=== PATIENT | male | born 1955 | race Caucasian/White ===

== ENCOUNTER → 2019-06-10 09:58 | Outpatient (CLI) | payer OTHER, SELFPAY ==
[2019-06-10 10:01] LABS: Bacteria 0 SEEN /hpf (None Seen); Mucous, Urine 0 SEEN /hpf (<or=2+); Red Blood Cells-Urine 0 SEEN /hpf (0-5); Squamous Epithelial Cells - UA 0 SEEN /hpf (0-5); White Blood Cells 0 SEEN /hpf (0-5)
[2019-06-10 12:29] LABS: Absolute Lymphocyte Count 3.94 X10^3/uL (0.83-4.51); Absolute Neutrophil Count 6.1 X10^3/uL (2.0-7.7); Basophil# 0.07 X10^3/uL; Basophil% 0.6 % (0-1); Eosinophil# 0.38 X10^3/uL; Eosinophils% 3.3 % (0-5); Hematocrit 42.6 % (40-54); Hemoglobin 14.3 g/dL (13.0-16.5); Lymphocyte # 3.94 X10^3/ul (4.0); Lymphocyte % 34.5 % (19-41); Mean Corp Hgb Conc 33.6 g/dL (32-36); Mean Corpuscular Hgb 31.4 pg (27.0-32.0); Mean Corpuscular Volume 93.4 fL (80-94); Mean Platelet Vol. 11.9 fl (6.2-12.0); Monocyte# 0.92 X10^3/uL; Monocyte% 8.1 % (0-10); NRBC Flagged by Analyzer 0 % (0-5); Neutrophil # 6.06 X10^3/uL (2.7-7.7); Neutrophil % 53.1 % (47-70); Platelet Count 225 K/mm3 (150-450); RBC Distribution Width CV 13.3 % (11.6-14.6); RBC Distribution Width SD 45.5 fl (35.1-43.9); Red Blood Count 4.56 M/mm3 (4.6-6.2); White Blood Count 11.4 K/mm3 (4.4-11.0)
[2019-06-10 12:39] LABS: Color, Urine Yellow (Yellow); Glucose, Dipstick Normal (Normal); Ketone-Dipstick Negative (Negative); Leukocyte Esterase-Dipstick Negative /ul (Negative); Nitrite-Dipstick Negative (Negative); Occult Blood-Urine Negative /ul (Negative); Protein-Dipstick Negative (Negative); Specific Gravity, Urine 1.005 (1.002-1.030); Urine Bilirubin Dipstick Negative (Negative); Urine Clarity Clear (Clear); Urine Urobilinogen Normal (Normal)
[2019-06-10 13:01] LABS: ALB/GLOB Ratio 0.9 RATIO (0.9-2.4); AST(SGOT) 18 U/L (15-37); Alanine Aminotransfer ALT/SGPT 23 U/L (16-61); Albumin, Serum 3.6 g/dL (3.2-5.0); Alkaline Phosphatase 95 U/L (45-117); Anion Gap 4 (5-15); BUN 14 mg/dL (7-18); BUN/Creat Ratio 13.9 RATIO (10-20); Calcium,Total 8.4 mg/dL (8.5-10.1); Chloride 106 mmol/L (98-107); Cholesterol 113 mg/dL (200); Creatinine, Serum 1.01 mg/dL (0.70-1.30); EST Glomerular Filtration Rate 79 mL/min (>60); Est Glom Filt Rate - Afr Amer 96 mL/min (>60); Globulin 3.9 g/dL (2.2-4.2); Glucose 78 mg/dL (74-106); High Density Lipoprotein 37 mg/dL; Potassium 4.1 mmol/L (3.5-5.1); Protein, Total 7.5 g/dL (6.4-8.2); Sodium Level 139 mmol/L (136-145); Thyroid Stim Hormone (TSH) 1.76 uIU/mL (0.358-3.74); Triglycerides 90 mg/dL; Very Low Density Lipoprotein 18 mg/dL (5-40)
== END ==
LOC: MFPLAB 09:59
PROVIDERS: Family Provider Family Medicine; PCP Family Medicine; Referring Provider Family Medicine; Visit Provider Family Medicine
DX: I10 Essential (primary) hypertension (principal); E78.5 Hyperlipidemia, unspecified
CPT/HCPCS: 36415; 80053; 80061; 81001; 84443; 85025

== ENCOUNTER → 2019-12-14 14:42 | Outpatient (CLI) | payer MEDICARE, SELFPAY ==
[2019-12-14 18:02] LABS: Absolute Lymphocyte Count 3.49 X10^3/uL (0.83-4.51); Absolute Neutrophil Count 5.9 X10^3/uL (2.0-7.7); Basophil# 0.05 X10^3/uL; Basophil% 0.5 % (0-1); Eosinophil# 0.27 X10^3/uL; Eosinophils% 2.6 % (0-5); Hematocrit 39.4 % (40-54); Hemoglobin 12.9 g/dL (13.0-16.5); Lymphocyte # 3.49 X10^3/ul (4.0); Mean Corp Hgb Conc 32.7 g/dL (32-36); Mean Corpuscular Hgb 31.1 pg (27.0-32.0); Mean Corpuscular Volume 94.9 fL (80-94); Mean Platelet Vol. 12.5 fl (6.2-12.0); Monocyte# 0.83 X10^3/uL; Monocyte% 7.9 % (0-10); NRBC Flagged by Analyzer 0 % (0-5); Neutrophil # 5.92 X10^3/uL (2.7-7.7); Neutrophil % 55.9 % (47-70); Platelet Count 201 K/mm3 (150-450); RBC Distribution Width CV 14.9 % (11.6-14.6); RBC Distribution Width SD 51.8 fl (35.1-43.9); Red Blood Count 4.15 M/mm3 (4.6-6.2); White Blood Count 10.6 K/mm3 (4.4-11.0)
[2019-12-14 18:40] LABS: ALB/GLOB Ratio 0.8 RATIO (0.9-2.4); AST(SGOT) 16 U/L (15-37); Alanine Aminotransfer ALT/SGPT 17 U/L (16-61); Albumin, Serum 3.3 g/dL (3.2-5.0); Alkaline Phosphatase 88 U/L (45-117); Anion Gap 6 (5-15); BUN 9 mg/dL (7-18); BUN/Creat Ratio 8.3 RATIO (10-20); Calcium,Total 8.9 mg/dL (8.5-10.1); Chloride 106 mmol/L (98-107); Cholesterol 107 mg/dL (200); Creatinine, Serum 1.09 mg/dL (0.70-1.30); EST Glomerular Filtration Rate 72 mL/min (>60); Est Glom Filt Rate - Afr Amer 88 mL/min (>60); Globulin 3.9 g/dL (2.2-4.2); Glucose 97 mg/dL (74-106); High Density Lipoprotein 36 mg/dL; PSA,Total - Annual Screen 1.87 ng/mL (0.00-4.00); Potassium 3.9 mmol/L (3.5-5.1); Protein, Total 7.2 g/dL (6.4-8.2); Sodium Level 140 mmol/L (136-145); Triglycerides 139 mg/dL; Very Low Density Lipoprotein 28 mg/dL (5-40)
== END ==
PROVIDERS: PCP Family Medicine; Referring Provider Family Medicine; Visit Provider Family Medicine
DX: E55.9 Vitamin D deficiency, unspecified (principal); E78.5 Hyperlipidemia, unspecified; I10 Essential (primary) hypertension; Z12.5 Encounter for screening for malignant neoplasm of prostate
CPT/HCPCS: 36415; 80053; 80061; 82306; 84153; 85025; G0103

== ENCOUNTER 2020-02-04 06:51 | Day surgery (SDC) | payer MEDICARE, SELFPAY ==
[2020-01-12 11:22] VITALS: BMI 25.4
[2020-02-04] VITALS (7 sets, daily range): BP systolic 96–117; BP diastolic 59–68; PULSE 60–76; RESP 16; TEMP 36.1–36.6; O2SAT 97–98; BMI 24.4
--- NOTE | 2020-02-04 07:02 | PCM.HP.BLA ---
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 Is patient in pain?: No Allergies No Known Allergies Allergy (Verified 12/28/19 09:44) Medications Aspirin 325 mg PO DAILY@0800 08/23/14 [History Confirmed 12/28/19] Nitroglycerin (INPATIENT USE) [Nitrostat] 0.4 mg SUBLINGUAL Q5M PRN 08/23/14 [History Confirmed 12/28/19] atorvastatin 80 mg tablet 80 mg PO QHS #90 tab 05/25/19 [Rx Confirmed 12/28/19] carvedilol 25 mg tablet 25 mg PO BID #180 tab 05/25/19 [Rx Confirmed 12/28/19] clopidogrel 75 mg tablet 75 mg PO DAILY #90 tab 05/25/19 [Rx Confirmed 12/28/19] lisinopril 10 mg tablet 10 mg PO DAILY #90 tab 05/25/19 [Rx Confirmed 12/28/19] PFSH Medical History Heart disease (Acute) previous heart attack (Acute) Hypertension (Chronic) Surgical History (Updated 12/28/19 @ 14:[address] Jordin Kidd MD) History of coronary artery stent placement (Acute) history cardiac stent placement (Acute) history insertion pacemaker (Acute) Family History (Updated 12/28/19 @ 09:52 by Leigha Zeng) Father Heart disease Social History (Updated 12/28/19 @ 14:[address] Jordin Kidd MD) Smoking Status: Current every day smoker HPI HPI HPI: CARA FONTENOT, is a 64 M who presents to the office today for surgical consultation regarding personal history of colon polyps and the need for colonoscopy. The patient is referred by Dr Dylan Cardoza a written copy of my surgical consult recommendations will return to him. This is a 64-year-old gentleman. He has a history on August 23, 2014 of a colonoscopy with polypectomy per Dr. Reji Major. This was performed through the [facility]. Guaiac positive stools were noted at that time. A 1 cm polyp and a large 3.5 cm polyp on a long stalk were both removed at 20 cm. Recommendations at that time were for follow-up flexible sigmoidoscopy at 6 months. The polyp at 20 cm was felt to be a tubulovillous adenoma. There was no discussion of atypia. The patient denies abdominal pain or bright red blood per rectum or melena. He did also have an upper endoscopy at that time showing some mild gastritis. He denies any current abdominal pain. He is retired. Denies chest pain or shortness of breath. No fever chills or sweats. He claims that he was unaware of the need for the flexible sigmoidoscopy. As of December 14, 2019 white blood cell count was 10.6 with a hemoglobin 12.9 medical 39.4 platelet count 201,000. BUN is 9 creatinine 1.09. He does have a left chest pacemaker in place. His machine engraver is Dr. Archie Avila but again the patient is not consistent with follow-up. He does not remember when he had the pacemaker check last. He has had a previous myocardial infarction approximately 10 years ago. He has indwelling coronary stents. He claims there is no family history of colon cancer. HPI HPI HPI: CARA FONTENOT, is a 64 M who presents to the office today for ROS General General: No weight change, appetite, fatigue, colon cancer, breast cancer or weakness HEENT HEENT: No difficulty swallowing, eye injury, eye surgery, swollen glands or hoarseness Endo Endocrine: No thyroid disease, diabetes mellitus, thyroid cancer, Hair loss, heat intolerance or cold intolerance Skin Skin: No rash or changing moles Breast Breast: No left breast lump, right breast lump, nipple discharge, breast pain, abnormal mammogram, abnormal US or breast enlargement Musc Musculoskeletal: No back problems, arthritis, rheumatoid arthritis, gout or joint pain Cardio Cardiovascular: Yes pacemaker, heart disease, heart attack and heart stent; no murmur, atrial fibrillation, high blood pressure, palpitations, shortness of breat with exertion or chest pain Psych Psychiatric: No depression, anxiety or hearing voices Resp Respiratory: No shortness of breath, No sleep apnea, No cough, No COPD, No asthma, No emphysema, No wheezing Gastro Gastrointestinal: No abdominal pain, No nausea or vomiting, No diarrhea, No constipation, No blood in stool, No acid reflux, No hemorrhoids, No ulcers, No gallbladder problem, No black,tarry stools Sandro Hematologic: Yes blood thinners, No blood disorders, No bleeding, No anemia, No blood clots Neuro Neurologic: No system reviewed and no additional complaints, except as docu, No as per HPI, No abnormal walking, No abnormal hearing, No abnormal movements, No abnormal speech, No behavioral changes, No burning sensations, No confusion, No seizure-like activity, No unsteadiness, No dizziness, No localized weakness, No frequent falls, No headache(s), No lack of coordination, No loss of vision, No memory loss, No numbness, No other visual disturbances, No radiating pain, No restless legs, No sensory deficit, No fainting, No tingling, No tremor(s), No weakness, No other Exam Const General: cooperative, comfortable, no acute distress Nutritional Appearance: average body habitus HENMT Head: normal to inspection Chest Breast Palpation: No nipple discharge Other: Left anterior chest subcutaneous pacemaker in place Resp Effort & Inspection: normal respiratory effort Auscultation: clear to auscultation bilaterally Cardio Heart Sounds: no murmurs GI Palpation: soft, no hepatosplenomegaly Auscultation: normal bowel sounds Neuro General: alert, awake, oriented x3 Extrem General: no calf tenderness Psych Affect: normal affect Assessment & Plan Problems 1. Personal history of colonic polyps Z86.010 2. History of myocardial infarction I25.2 3. History of coronary artery stent placement Z95.5 4. Pacemaker Z95.0 Plan I recommended the patient a colonoscopy with biopsy or polypectomy as indicated. He is aware of the technique, benefit, risk, alternatives. Because of his history of a large 3.5 cm polyp I will recommend to him. For that reason we will request cardiology clearance per Dr. Archie Avila prior to intervening. It is likely that the patient at minimum will require pacemaker check. He has had an opportunity to ask and have questions answered. I appreciate the opportunity of assisting with his surgical care. Cc: Dr Dylan Cardoza and Dr. Archie Kidd M.D., F.A.C.S. Orders Orders: Colonoscopy Today Coding Level of Care Code 08857 Diagnoses Personal history of colonic polyps Z86.010 History of myocardial infarction I25.2 History of coronary artery stent placement Z95.5 Pacemaker Z95.0 I have re-examined the patient. There are no clinical changes since date of exam. Procedure Criteria Procedure Type: Elective COVID Risk Discussion: The surgeon/proceduralist and patient have discussed in detail the risk of exposure to and/or potential harm posed by the COVID-19 virus with having a surgery/procedure at this time versus the risk of delaying the surgery/procedure. It is not possible to know either the risk of delaying the surgery or procedure or chance of getting an infection with perfect accuracy, but a joint decision was made between the patient and the surgeon/proceduralist to proceed at this time with the scheduled surgery/procedure as indicated on the consent form.
[2020-02-04] MEDS: Lactated Ringers 1,000 ML 100 ML IV (07:40)
--- NOTE | 2020-02-04 08:09 | OP.CCLET_ITS ---
02/04/2020 Dylan Cardoza [address] [place] [address] Re : Colonoscopy procedure for Dejan Cordoba Dear Dr. Cardoza This procedure was performed on Tuesday, February 04, 2020. My impressions and recommendations are as follows: Impressions : - Non-thrombosed external hemorrhoids, non-thrombosed internal hemorrhoids and internal hemorrhoids that prolapse with straining, but require manual replacement into the anal canal (Grade III) found on digital rectal exam. - Diverticulosis in the sigmoid colon. - Lax anal tone found on digital rectal exam. - The examination was otherwise normal. - No specimens collected. Recommendations : - Discharge patient to home. - Resume previous diet. - Continue present medications. - Repeat colonoscopy in 5 years for surveillance. My findings are described in the full procedure note, which is enclosed. If I can be of further assistance, please feel free to contact me at Doctor phone number(s): Work: . Sincerely, Jordin Kidd MD 02/04/2020 8:08:49 AM This report has been signed electronically.
--- NOTE | 2020-02-04 08:09 | OP.COLON_ITS ---
Patient Name: Dejan Cordoba Procedure Date: 02/04/2020 7:43 AM Date of : 1955 Age: 64 Procedure: Colonoscopy Indications: High risk colon cancer surveillance: Personal history of colonic polyps Providers: Jordin Kidd MD Referring MD: Dylan Cardoza Medicines: See the Anesthesia note for documentation of the administered medications Patient Profile: Last Colonoscopy: August 2014. Complications: No immediate complications. Procedure: Pre-Anesthesia Assessment: - Prior to the procedure, a History and Physical was performed, and patient medications and allergies were reviewed. The patient's tolerance of previous anesthesia was also reviewed. The risks and benefits of the procedure and the sedation options and risks were discussed with the patient. All questions were answered, and informed consent was obtained. Prior Anticoagulants: The patient has taken no previous anticoagulant or antiplatelet agents. ASA Grade Assessment: III - A patient with severe systemic disease. After reviewing the risks and benefits, the patient was deemed in satisfactory condition to undergo the procedure. After I obtained informed consent, the scope was passed under direct vision. Throughout the procedure, the patient's blood pressure, pulse, and oxygen saturations were monitored continuously. The Colonoscope was introduced through the anus and advanced to the cecum, identified by appendiceal orifice and ileocecal valve. The colonoscopy was performed without difficulty. The patient tolerated the procedure well. The quality of the bowel preparation was good. The ileocecal valve and the appendiceal orifice were photographed. Scope In: 7:51:23 AM Scope Withdrawal Time 0 hours 6 minutes 59 seconds Scope Out: 8:02:28 AM Total Procedure Duration Time 0 hours 11 minutes 5 seconds Findings: The digital rectal exam findings include non-thrombosed external hemorrhoids, non-thrombosed internal hemorrhoids and internal hemorrhoids that prolapse with straining, but require manual replacement into the anal canal (Grade III). Pertinent negatives include normal prostate (size, shape, and consistency). Multiple diverticula were found in the sigmoid colon. The digital rectal exam findings include lax anal tone. The exam was otherwise without abnormality. Impression: - Non-thrombosed external hemorrhoids, non-thrombosed internal hemorrhoids and internal hemorrhoids that prolapse with straining, but require manual replacement into the anal canal (Grade III) found on digital rectal exam. - Diverticulosis in the sigmoid colon. - Lax anal tone found on digital rectal exam. - The examination was otherwise normal. - No specimens collected. Recommendation: - Discharge patient to home. - Resume previous diet. - Continue present medications. - Repeat colonoscopy in 5 years for surveillance. Procedure Code(s): --- Professional --- G0105, Colorectal cancer screening; colonoscopy on individual at high risk Diagnosis Code(s): --- Professional --- Z86.010, Personal history of colonic polyps K64.2, Third degree hemorrhoids K64.4, Residual hemorrhoidal skin tags K57.30, Diverticulosis of large intestine without perforation or abscess without bleeding CPT copyright 2017 [employer]. All rights reserved. The codes documented in this report are preliminary and upon truck driving review may be revised to meet current compliance requirements. Jordin Kidd MD 02/04/2020 8:08:49 AM This report has been signed electronically. Number of Addenda: 0 Note Initiated On: 02/04/2020 7:43 AM
== END 2020-02-04 08:55 | disposition home or self-care (01) ==
LOC: EN 06:54 → AC 06:54
PROVIDERS: Anesthesiology; PCP Family Medicine; Referring Provider Family Medicine; Visit Provider Surgery
PROC: 0DJD8ZZ Inspection of Lower Intestinal Tract, Via Natural or Artificial Opening Endoscopic (ICD-10-PCS; CPT 45378; principal; 2020-02-04 07:40)
DX: Z12.11 Encounter for screening for malignant neoplasm of colon (principal); Z79.82 Long term (current) use of aspirin; I25.2 Old myocardial infarction; K64.2 Third degree hemorrhoids; K64.4 Residual hemorrhoidal skin tags; K57.30 Diverticulosis of large intestine without perforation or abscess without bleeding; I10 Essential (primary) hypertension; F17.200 Nicotine dependence, unspecified, uncomplicated; Z86.010 Personal history of colon polyps; Z95.5 Presence of coronary angioplasty implant and graft; Z95.0 Presence of cardiac pacemaker
CPT/HCPCS: G0105; 87635; 94799; J7120; J2405; U0003

== ENCOUNTER → 2020-06-13 08:53 | Outpatient (CLI) | payer MEDICARE, SELFPAY ==
[2020-02-04 07:27] VITALS: BMI 24.4
[2020-06-13 10:09] LABS: ALB/GLOB Ratio 0.9 RATIO (0.9-2.4); AST(SGOT) 17 U/L (15-37); Alanine Aminotransfer ALT/SGPT 23 U/L (16-61); Albumin, Serum 3.5 g/dL (3.2-5.0); Alkaline Phosphatase 92 U/L (45-117); Anion Gap 2 (5-15); BUN 8 mg/dL (7-18); BUN/Creat Ratio 8.5 RATIO (10-20); Calcium,Total 8.4 mg/dL (8.5-10.1); Chloride 107 mmol/L (98-107); Cholesterol 109 mg/dL (200); Creatinine, Serum 0.94 mg/dL (0.70-1.30); EST Glomerular Filtration Rate 86 mL/min (>60); Est Glom Filt Rate - Afr Amer 104 mL/min (>60); Globulin 3.9 g/dL (2.2-4.2); Glucose 80 mg/dL (74-106); High Density Lipoprotein 39 mg/dL; Protein, Total 7.4 g/dL (6.4-8.2); Sodium Level 138 mmol/L (136-145); Triglycerides 83 mg/dL; Very Low Density Lipoprotein 17 mg/dL (5-40)
[2020-06-13 10:11] LABS: Vitamin D,25 Hydroxy 12.6 ng/mL
== END ==
LOC: MFPLAB 08:55
PROVIDERS: PCP Family Medicine; Referring Provider Family Medicine; Visit Provider Family Medicine
DX: E78.5 Hyperlipidemia, unspecified (principal); E55.9 Vitamin D deficiency, unspecified; I10 Essential (primary) hypertension
CPT/HCPCS: 36415; 80053; 80061; 82306

== ENCOUNTER → 2020-12-15 08:52 | Outpatient (CLI) | payer MEDICARE, SELFPAY ==
[2020-02-04 07:27] VITALS: BMI 24.4
[2020-12-15 10:10] LABS: Absolute Lymphocyte Count 2.98 X10^3/uL (0.83-4.51); Absolute Neutrophil Count 5.3 X10^3/uL (2.0-7.7); Basophil# 0.04 X10^3/uL; Basophil% 0.4 % (0-1); Eosinophil# 0.23 X10^3/uL; Eosinophils% 2.5 % (0-5); Hematocrit 39.7 % (40-54); Hemoglobin 13.2 g/dL (13.0-16.5); Lymphocyte # 2.98 X10^3/ul (0.83-4.51); Lymphocyte % 32.3 % (19-41); Mean Corp Hgb Conc 33.2 g/dL (32-36); Mean Corpuscular Hgb 31.3 pg (27.0-32.0); Mean Corpuscular Volume 94.1 fL (80-94); Mean Platelet Vol. 11.7 fl (6.2-12.0); Monocyte# 0.71 X10^3/uL; Monocyte% 7.7 % (0-10); NRBC Flagged by Analyzer 0 % (0-5); Neutrophil # 5.26 X10^3/uL (2.7-7.7); Neutrophil % 56.9 % (47-70); Platelet Count 179 K/mm3 (150-450); RBC Distribution Width CV 14.1 % (11.6-14.6); RBC Distribution Width SD 49.1 fl (35.1-43.9); Red Blood Count 4.22 M/mm3 (4.6-6.2); White Blood Count 9.2 K/mm3 (4.4-11.0)
[2020-12-15 10:56] LABS: AST(SGOT) 17 U/L (15-37); Alanine Aminotransfer ALT/SGPT 18 U/L (16-61); Albumin, Serum 3.4 g/dL (3.2-5.0); Alkaline Phosphatase 91 U/L (45-117); Anion Gap 6 (5-15); BUN 8 mg/dL (7-18); BUN/Creat Ratio 8.6 RATIO (10-20); Calcium,Total 8.5 mg/dL (8.5-10.1); Chloride 106 mmol/L (98-107); Cholesterol 117 mg/dL (200); Creatinine, Serum 0.92 mg/dL (0.70-1.30); EST Glomerular Filtration Rate 87 mL/min (>60); Est Glom Filt Rate - Afr Amer 106 mL/min (>60); Globulin 3.5 g/dL (2.2-4.2); Glucose 85 mg/dL (74-106); High Density Lipoprotein 40 mg/dL; PSA,Total - Annual Screen 1.75 ng/mL (0.00-4.00); Potassium 3.7 mmol/L (3.5-5.1); Protein, Total 6.9 g/dL (6.4-8.2); Sodium Level 139 mmol/L (136-145); Thyroid Stim Hormone (TSH) 1.53 uIU/mL (0.358-3.74); Triglycerides 63 mg/dL; Very Low Density Lipoprotein 13 mg/dL (5-40)
== END ==
PROVIDERS: PCP Family Medicine; Referring Provider Family Medicine; Visit Provider Family Medicine
DX: I25.10 Atherosclerotic heart disease of native coronary artery without angina pectoris (principal); I10 Essential (primary) hypertension; E55.9 Vitamin D deficiency, unspecified; Z12.5 Encounter for screening for malignant neoplasm of prostate
CPT/HCPCS: 36415; 80053; 80061; 82306; 84153; 84443; 85025; G0103

== ENCOUNTER → 2020-12-26 17:21 | Outpatient (CLI) | payer MEDICARE, SELFPAY ==
[2020-02-04 07:27] VITALS: BMI 24.4
--- NOTE | 2020-12-26 17:31 | CT_ITS ---
STUDY: LOW DOSE CT LUNG CANCER SCREENING REASON FOR EXAM: Male, 65 years old. TOBACCO USE. Patient smoker 47 years. RADIATION DOSAGE (If Supplied By Facility): CTDIvol = ( 3.02 ) mGy, DLP = ( 100.43 ) mGycm TECHNIQUE: No contrast was administered. Low dose technique was utilized (average mAS-38 and kVp 120). 1.25 mm axial source images with a slice interval of 1.25-mm were reconstructed in lung windows. 2.5 mm axial source images with a slice interval of 2.5-mm were reconstructed in lung windows. 5.0 mm axial source images with a slice interval of 5.0-mm were reconstructed in soft tissue windows. Nodule measured using lung windows on PACS and/or independent workstation with automated measurement of minimum and maximum diameter. Nodule measurement reported as average diameter rounded to the nearest whole number. Growth is defined as an increase ins size of greater than 1.5 mm. COMPARISON: None. NODULES: No suspicious nodules are seen. Emphysema: Mild degree of emphysematous changes. Mild scarring at the lung apices slightly more prominent on the right side. Small calcified granuloma in the lateral aspect of the right upper lobe. Mild scarring along the posterior medial aspects of both lower lobes slightly more prominent on the right side. Endobronchial lesion: None Aorta: Atherosclerotic calcification. Coronary arteries: Coronary artery calcification. A dual-chamber pacemaker is seen. Heart: Unremarkable Pulmonary artery: Unremarkable Mediastinal nodes: Small benign-appearing mediastinal lymph nodes. Other chest and abdominal findings: CT/Low Dose CT Lung Screening IMPRESSION: Lung-RADS category 2 - Continue annual screening with LDCT in 12 months. IMPORTANT NOTES FOR USE: ACR Lung-RADS Version 1.1 Assessment Categories Release Date: 2018 Category: Coded 0-4 bases on nodule(s) with highest degree of suspicion. Negative screen is defined as categories 1 and 2; a positive screen is defined as categories 3 and 4. Category 3 and 4A nodules that are unchanged on interval CT should be coded as category 2, and individuals returned to screening in 12 months. Category 4X: Category 3 or 4 nodules with additional imaging findings that increase the suspicion of lung cancer, such as spiculation, GGN that doubles in size in 1 year, enlarged lymph notes, etc. Category Modifiers: S (significant finding unrelated to lung cancer) Electronically Signed: Lester Shields MD at 9:05 EDT , Service support ,
== END ==
PROVIDERS: PCP Family Medicine; Referring Provider Family Medicine; Visit Provider Family Medicine
DX: Z12.2 Encounter for screening for malignant neoplasm of respiratory organs (principal); Z87.891 Personal history of nicotine dependence
CPT/HCPCS: 71271

== ENCOUNTER → 2021-02-02 12:55 | Outpatient (CLI) | payer MEDICARE, SELFPAY ==
[2020-02-04 07:27] VITALS: BMI 24.4
== END ==
PROVIDERS: PCP Family Medicine; Visit Provider Family Medicine
DX: R05 Cough (principal)
CPT/HCPCS: 87635; U0005; U0003

== ENCOUNTER → 2021-05-07 08:36 | Outpatient (CLI) | payer MEDICARE, SELFPAY | PROVIDERS: PCP Family Medicine; Referring Provider Internal Medicine Cardiovascular Disease; Visit Provider Internal Medicine Cardiovascular Disease | DX: Z00.00 Encounter for general adult medical examination without abnormal findings (principal) ==

== ENCOUNTER 2021-05-10 09:01 | Day surgery (SDC) | payer MEDICARE, SELFPAY ==
[2021-05-02 13:54] LABS: Bacteria 0 SEEN /hpf (None Seen); Mucous, Urine 0 SEEN /hpf (<or=2+); Red Blood Cells-Urine 0 SEEN /hpf (0-5); Squamous Epithelial Cells - UA 0 SEEN /hpf (0-5); White Blood Cells 0 SEEN /hpf (0-5)
[2021-05-02 14:19] LABS: Hemoglobin 14.2 g/dL (13.0-16.5); Mean Corp Hgb Conc 34.6 g/dL (32-36); Mean Corpuscular Hgb 32.1 pg (27.0-32.0); Mean Corpuscular Volume 92.6 fL (80-94); Mean Platelet Vol. 10.8 fl (6.2-12.0); Platelet Count 212 K/mm3 (150-450); RBC Distribution Width CV 13.5 % (11.6-14.6); Red Blood Count 4.43 M/mm3 (4.6-6.2); White Blood Count 9.5 K/mm3 (4.4-11.0)
[2021-05-02 14:31] LABS: International Normalized Ratio 1.1; Prothrombin Time (Protime)PT. 13.5 SECONDS (11.7-14.9)
[2021-05-02 14:36] LABS: Color, Urine Straw (Yellow); Glucose, Dipstick Normal (Normal); Ketone-Dipstick Negative (Negative); Leukocyte Esterase-Dipstick Negative /ul (Negative); Nitrite-Dipstick Negative (Negative); Occult Blood-Urine Negative /ul (Negative); Protein-Dipstick Negative (Negative); Urine Bilirubin Dipstick Negative (Negative); Urine Clarity Clear (Clear); Urine Urobilinogen Normal (Normal); Urine pH 6.5 (5.0 - 8.0)
[2021-05-02 14:41] LABS: Anion Gap 5 (5-15); BUN 8 mg/dL (7-18); BUN/Creat Ratio 7.7 RATIO (10-20); Calcium,Total 8.8 mg/dL (8.5-10.1); Chloride 107 mmol/L (98-107); Creatinine, Serum 1.04 mg/dL (0.70-1.30); EST Glomerular Filtration Rate 76 mL/min (>60); Est Glom Filt Rate - Afr Amer 92 mL/min (>60); Glucose 109 mg/dL (74-106); Potassium 3.5 mmol/L (3.5-5.1); Sodium Level 141 mmol/L (136-145)
[2021-05-09 07:49] VITALS: BMI 25.8
--- NOTE | 2021-05-10 11:48 | PCM.OP.BLANK ---
Operative Report Date of Procedure: 05/10/21 Diagnosis: ischemic Cardiomyopathy with NYHA Class III ICD for primary prevention. Device generator replacement for normal battery depletion Preoperative diagnosis is device at end of life for normal battery depletion. Postoperative diagnosis same as above. After informed consent and IV antibiotics the patient was brought to the [place] [facility] catheterization laboratory and the skin over the device was prepped and draped in the usual sterile manner. Intermittent boluses of Versed, and fentanyl were used for sedation and analgesia as well as 1% subcutaneous lidocaine. An incision was made over the pre-existing device. Using blunt and Bovie dissection the pocket was opened and the device was removed. Careful attention was paid not to injure the pre-existing leads. The leads were removed from the device header and they were interrogated. There is normal lead function. Hemostasis was obtained. The pocket was flushed with antibiotic solution. The sponge and needle count were correct. The new device was brought to the field. The leads were placed in the appropriate position in the header and secured by the set screw. The leads and the device were then placed in the pocket. The pocket was closed with a deep layer of running 2-0 Vicryl, a superficial layer of running 4-0 Vicryl, skin with Steri-Strips which were covered with a rolled 4 x 4 and Tegaderm. Patient left the room with the device programmed to proper parameters and there were no complications. The device is a BiV ICD ([employer]) generator. All lead parameters were tested and found to be functionally normal. Lead and device serial and model numbers are available in the chart documents provided by the device company inbound sales representative procedure summary.
--- NOTE | 2021-05-10 11:50 | PRO.PCM_ITS ---
Procedure Report Date of Procedure: 05/10/21 CONSCIOUS SEDATION REPORT DATE OF SERVICE: May 10, 2021 BRIEF HISTORY OF PRESENT ILLNESS: The patient is a 66-year-old male who presented to [facility] for an elective outpatient generator change. During the procedure, the patient developed atrial fibrillation with RVR. His last surface echocardiogram demonstrated an ejection fraction of approximately 55%. He denies any prior anesthetic complications. He has no known history of obstructive sleep apnea. PHYSICAL EXAMINATION: VITAL SIGNS: Reviewed and were acceptable. GENERAL: The patient is a male, in no apparent distress, speaking in full sentences. HEENT: Normocephalic, atraumatic. Mucous membranes are moist and pink. Good mouth opening noted. Trachea is midline. Good neck mobility. CHEST: S1, S2 irregularly irregular. No murmurs, rubs or gallops were noted. LUNGS: Clear to auscultation bilaterally without appreciable wheezes, rales or rhonchi. ABDOMEN: Soft, nontender, nondistended. Positive bowel sounds. EXTREMITIES: There is no clubbing, cyanosis or edema. ASA Class: II DESCRIPTION OF PROCEDURE: After confirmation of informed consent, the patient's anesthesia plan was reviewed in detail. Propofol was chosen. Risks and benefits were reviewed and the patient agreed to proceed. At 1134, the patient was given 40 mg of propofol. The patient achieved an appropriate level of sedation and was given a 360 joule synchronized cardioversion by Dr. Leiva at the bedside. This was successful in achieving normal sinus rhythm. The patient was monitored until 1145, at which time he reached his baseline mental status and function. The patient tolerated the procedure well. COMPLICATIONS: None ESTIMATED BLOOD LOSS: None RECOMMENDATIONS: Okay to recover in usual fashion. Procedures Pulmonary CF Procedures Pulmonary: 34232 Con Sedation
== END 2021-05-10 12:50 | disposition home or self-care (01) ==
LOC: CLSP 09:05
PROVIDERS: PCP Family Medicine; Referring Provider Internal Medicine Cardiovascular Disease; Visit Provider Internal Medicine Cardiovascular Disease
DX: I25.5 Ischemic cardiomyopathy (principal); I48.91 Unspecified atrial fibrillation; I48.92 Unspecified atrial flutter; I25.2 Old myocardial infarction; I25.10 Atherosclerotic heart disease of native coronary artery without angina pectoris; I10 Essential (primary) hypertension; Z86.74 Personal history of sudden cardiac arrest; Z87.891 Personal history of nicotine dependence; Z95.810 Presence of automatic (implantable) cardiac defibrillator; Z95.5 Presence of coronary angioplasty implant and graft
CPT/HCPCS: 33264; 36415; 80048; 81001; 85027; 85610; 87635; 92960; 93641; 99152; 99153; C9803; J7040; J7050; U0005; U0003

== ENCOUNTER 2021-07-02 10:56 | Outpatient (CLI) | payer MEDICARE, SELFPAY ==
[2021-07-02 15:23] LABS: Absolute Lymphocyte Count 3.38 X10^3/uL (0.83-4.51); Absolute Neutrophil Count 4.8 X10^3/uL (2.0-7.7); Basophil# 0.06 X10^3/uL; Basophil% 0.6 % (0-1); Eosinophil# 0.39 X10^3/uL; Eosinophils% 4.1 % (0-5); Hematocrit 40.7 % (40-54); Hemoglobin 13.4 g/dL (13.0-16.5); Lymphocyte # 3.38 X10^3/ul (0.83-4.51); Lymphocyte % 35.4 % (19-41); Mean Corp Hgb Conc 32.9 g/dL (32-36); Mean Corpuscular Hgb 30.6 pg (27.0-32.0); Mean Corpuscular Volume 92.9 fL (80-94); Mean Platelet Vol. 11.8 fl (6.2-12.0); Monocyte# 0.88 X10^3/uL; Monocyte% 9.2 % (0-10); NRBC Flagged by Analyzer 0 % (0-5); Neutrophil # 4.81 X10^3/uL (2.7-7.7); Neutrophil % 50.4 % (47-70); Platelet Count 199 K/mm3 (150-450); RBC Distribution Width CV 13.5 % (11.6-14.6); RBC Distribution Width SD 46.3 fl (35.1-43.9); Red Blood Count 4.38 M/mm3 (4.6-6.2); White Blood Count 9.6 K/mm3 (4.4-11.0)
[2021-07-02 16:01] LABS: ALB/GLOB Ratio 0.8 RATIO (0.9-2.4); AST(SGOT) 25 U/L (15-37); Alanine Aminotransfer ALT/SGPT 23 U/L (16-61); Albumin, Serum 3.4 g/dL (3.2-5.0); Alkaline Phosphatase 95 U/L (45-117); Anion Gap 7 (5-15); BUN 17 mg/dL (7-18); BUN/Creat Ratio 15.2 RATIO (10-20); Calcium,Total 8.9 mg/dL (8.5-10.1); Chloride 104 mmol/L (98-107); Cholesterol 110 mg/dL (200); Creatinine, Serum 1.12 mg/dL (0.70-1.30); EST Glomerular Filtration Rate 70 mL/min (>60); Est Glom Filt Rate - Afr Amer 85 mL/min (>60); Glucose 82 mg/dL (74-106); High Density Lipoprotein 37 mg/dL; Potassium 4.1 mmol/L (3.5-5.1); Protein, Total 7.4 g/dL (6.4-8.2); Sodium Level 136 mmol/L (136-145); Triglycerides 65 mg/dL; Very Low Density Lipoprotein 13 mg/dL (5-40)
== END 2021-07-02 23:59 | disposition short-term general hospital (02) ==
LOC: MFPLAB 10:57
PROVIDERS: PCP Family Medicine; Visit Provider Family Medicine
DX: I10 Essential (primary) hypertension (principal); E78.5 Hyperlipidemia, unspecified
CPT/HCPCS: 36415; 80053; 80061; 85025

== ENCOUNTER → 2022-01-02 | Outpatient (CLI) | payer MEDICARE, SELFPAY | END | disposition home or self-care (01) | LOC: MFPLAB 10:52 | PROVIDERS: PCP Family Medicine; Referring Provider Family Medicine; Visit Provider Family Medicine | DX: Z00.00 Encounter for general adult medical examination without abnormal findings (principal) ==

== ENCOUNTER → 2023-03-06 | Outpatient (CLI) | payer MEDICARE, SELFPAY ==
[2023-03-06 15:05] LABS: Bacteria 0 SEEN /hpf (None Seen); Mucous, Urine 0 SEEN /hpf (<or=2+); Red Blood Cells-Urine 0 SEEN /hpf (0-5); Squamous Epithelial Cells - UA 0 SEEN /hpf (0-5)
[2023-03-06 17:50] LABS: Absolute Lymphocyte Count 3.62 X10^3/uL (0.83-4.51); Absolute Neutrophil Count 7.6 X10^3/uL (2.0-7.7); Basophil# 0.06 X10^3/uL; Basophil% 0.5 % (0-1); Eosinophils% 2.4 % (0-5); Hematocrit 38.9 % (40-54); Lymphocyte # 3.62 X10^3/ul (0.83-4.51); Lymphocyte % 28.6 % (19-41); Mean Corp Hgb Conc 33.4 g/dL (32-36); Mean Corpuscular Hgb 31.5 pg (27.0-32.0); Mean Corpuscular Volume 94.2 fL (80-94); Mean Platelet Vol. 11.4 fl (6.2-12.0); Monocyte# 1.04 X10^3/uL; Monocyte% 8.2 % (0-10); NRBC Flagged by Analyzer 0 % (0-5); Neutrophil # 7.58 X10^3/uL (2.7-7.7); Platelet Count 184 K/mm3 (150-450); RBC Distribution Width CV 13.8 % (11.6-14.6); RBC Distribution Width SD 47.2 fl (35.1-43.9); Red Blood Count 4.13 M/mm3 (4.6-6.2); White Blood Count 12.6 K/mm3 (4.4-11.0)
[2023-03-06 18:44] LABS: Color, Urine Yellow (Yellow); Glucose, Dipstick Normal (Normal); Ketone-Dipstick 5 mg/dl (Negative); Leukocyte Esterase-Dipstick 25 /ul (Negative); Nitrite-Dipstick Negative (Negative); Occult Blood-Urine Negative /ul (Negative); Protein-Dipstick Negative (Negative); Specific Gravity, Urine 1.015 (1.002-1.030); Urine Bilirubin Dipstick Negative (Negative); Urine Clarity Clear (Clear); Urine Urobilinogen Normal (Normal)
[2023-03-06 18:52] LABS: AST(SGOT) 19 U/L (15-37); Alanine Aminotransfer ALT/SGPT 15 U/L (16-61); Albumin, Serum 3.6 g/dL (3.2-5.0); Alkaline Phosphatase 88 U/L (45-117); Anion Gap 11 (5-15); BUN 13 mg/dL (7-18); BUN/Creat Ratio 11.2 RATIO (10-20); Calcium,Total 8.7 mg/dL (8.5-10.1); Chloride 106 mmol/L (98-107); Cholesterol 115 mg/dL (200); Creatinine, Serum 1.16 mg/dL (0.70-1.30); EST Glomerular Filtration Rate 67 mL/min (>60); Est Glom Filt Rate - Afr Amer 81 mL/min (>60); Globulin 3.5 g/dL (2.2-4.2); Glucose 72 mg/dL (74-106); High Density Lipoprotein 41 mg/dL; Potassium 3.9 mmol/L (3.5-5.1); Protein, Total 7.1 g/dL (6.4-8.2); Sodium Level 138 mmol/L (136-145); Triglycerides 77 mg/dL; Very Low Density Lipoprotein 15 mg/dL (5-40)
[2023-03-06 19:22] LABS: Hyaline Cast 0-5 SEEN /lpf (0-5); White Blood Cells 0-5 SEEN /hpf (0-5)
== END | disposition home or self-care (01) ==
PROVIDERS: PCP Family Medicine; Visit Provider Family Medicine
DX: I25.10 Atherosclerotic heart disease of native coronary artery without angina pectoris (principal); I10 Essential (primary) hypertension
CPT/HCPCS: 36415; 80053; 80061; 81001; 84443; 85025

== ENCOUNTER → 2023-05-08 | Outpatient (CLI) | payer MEDICARE, SELFPAY ==
[2023-05-08 18:26] LABS: PSA,Total - Annual Screen 1.95 ng/mL (0.00-4.00)
== END | disposition home or self-care (01) ==
LOC: MFPLAB 13:42
PROVIDERS: PCP Family Medicine; Visit Provider Family Medicine
DX: Z12.5 Encounter for screening for malignant neoplasm of prostate (principal)
CPT/HCPCS: 36415; 84153; G0103

== ENCOUNTER → 2023-05-22 | Outpatient (CLI) | payer MEDICARE, SELFPAY ==
--- NOTE | 2023-05-22 14:24 | CT_ITS ---
STUDY: LOW DOSE CT LUNG CANCER SCREENING REASON FOR EXAM: Male, 68 years old. History of prior tobacco use. Patient smoked for 47 years. RADIATION DOSAGE (If Supplied By Facility): CTDIvol = ( 2.01 ) mGy, DLP = ( 64.69 ) mGycm TECHNIQUE: No contrast was administered. Low dose technique was utilized (average mAS-38 and kVp 120). 1.25 mm axial source images with a slice interval of 1.25-mm were reconstructed in lung windows. 2.5 mm axial source images with a slice interval of 2.5-mm were reconstructed in lung windows. 5.0 mm axial source images with a slice interval of 5.0-mm were reconstructed in soft tissue windows. COMPARISON: Comparison is made with prior study dated December 26, 2020. NODULES: No suspicious nodules are seen. Emphysema: Stable mild degree of emphysematous changes. Mild scarring at the lung apices slightly more prominent on the right side. Small calcified granuloma in the lateral aspect of the right upper lobe. Mild scarring along the posteromedial aspect of both lower lobes. Endobronchial lesion: None Aorta: Atherosclerotic plaque formation of the aortic arch. CORONARY ARTERIES: Coronary artery calcification is seen. A left-sided dual-chamber pacemaker is seen. Heart: Unremarkable Pulmonary artery: Unremarkable Mediastinal nodes: Small benign-appearing mediastinal lymph nodes. Other chest and abdominal findings: CT/Low Dose CT Lung Screening IMPRESSION: Lung-RADS category 2 - Continue annual screening with LDCT in 12 months. IMPORTANT NOTES FOR USE: ACR Lung-RADS Version 1.1 Assessment Categories Release Date: 2018 Category: Coded 0-4 bases on nodule(s) with highest degree of suspicion. Negative screen is defined as categories 1 and 2; a positive screen is defined as categories 3 and 4. Category 3 and 4A nodules that are unchanged on interval CT should be coded as category 2, and individuals returned to screening in 12 months. Category 4X: Category 3 or 4 nodules with additional imaging findings that increase the suspicion of lung cancer, such as spiculation, GGN that doubles in size in 1 year, enlarged lymph notes, etc. Category Modifiers: S (significant finding unrelated to lung cancer) Electronically Signed: Lester Shields MD at 10:32 EST ,
== END | disposition home or self-care (01) ==
LOC: CT 14:22
PROVIDERS: PCP Family Medicine; Referring Provider Family Medicine; Visit Provider Family Medicine
DX: Z87.891 Personal history of nicotine dependence (principal)
CPT/HCPCS: 71271

== ENCOUNTER → 2023-08-29 | Outpatient (CLI) | payer MEDICARE, SELFPAY ==
--- OUTSIDE RECORDS SUMMARY | 2023-08-29 11:48 | XMS RPT_ITS | CCD ---
Author Name Unknown Address [address] [place] [address] Organization [facility] Care Team Providers Care Stud Master/Mistress Name Role Phone Linda Solano Unavailable Unavailable MD Austin, Archie José Unavailable Linda Soalno Unavailable Unavailable Medications Completed/Discontinued Medications Medication Drug Class(es) Dates Sig (Normalized) Sig (Original) aspirin 325 mg oral tablet (3 sources) Platelet Aggregation Inhibitor, Nonsteroidal Anti-inflammatory Drug Start: 12-12-2010 take 1 tablet by mouth once daily ASPIRIN 325 MG TABS One tablet by mouth daily ASPIRIN [id number] Floridalma Alvarado atorvastatin 80 mg oral tablet (9 sources) HMG-CoA Reductase Inhibitor Start: 12-12-2010 take 1 tablet by mouth once daily LIPITOR 80 MG TABS One tablet by mouth daily ATORVASTATIN CALCIUM [id number] Regina Soto PA-C carvedilol 25 mg oral tablet (12 sources) alpha-Adrenergic [place], beta-Adrenergic [place] Start: 12-12-2010 take 1 tablet by mouth twice daily CARVEDILOL 25 MG TABS One tablet by mouth twice daily CARVEDILOL [id number] Archie Avila MD clopidogrel 75 mg oral tablet (12 sources) P2Y12 Platelet Inhibitor Start: 12-12-2010 take 1 tablet by mouth once daily PLAVIX 75 MG TABS One tablet by mouth daily CLOPIDOGREL BISULFATE [id number] Archie Avila MD lisinopril 10 mg oral tablet (12 sources) Angiotensin Converting Enzyme Inhibitor Start: 12-12-2010 take 1 tablet by mouth once daily LISINOPRIL 10 MG TABS One tablet by mouth daily LISINOPRIL [id number] Archie Avila MD nitroglycerin 0.4 mg sublingual tablet (6 sources) Nitrate Vasodilator Start: 08-21-2012 NITROSTAT 0.4 MG SUBL 1 tablet under tongue every 5 min up to 3 X NITROGLYCERIN [id number] Regina Soto PA-C Problems Active Problems Problem Classification Problem Date Documented Da te Episodic/Chronic Cardiac arrest and ventricular fibrillation (3 sources) Cardiac arrest; Translations: [Cardiac arrest, cause unspecified] Onset: 12-12-2010 12-12-2010 Chronic Conduction disorders (3 sources) Left bundle branch hemiblock; Translations: [Unspecified fascicular block] Onset: 12-12-2010 12-12-2010 Chronic Coronary atherosclerosis and other heart disease (12 sources) Coronary arteriosclerosis; Translations: [Coronary atherosclerosis] Onset: 12-12-2010 Resolved: 05-30-2016 08-21-2012 Chronic Disorders of lipid metabolism (3 sources) Hyperlipidemia; Translations: [Hyperlipidemia, unspecified] Onset: 08-31-2012 08-31-2012 Chronic Unclassified (2 sources) Implantation of automatic cardiac defibrillator ; Translations: [Presence of automatic (implantable) cardiac defibrillator] Onset: 12-12-2010 12-12-2010 Unclassified (2 sources) Long-term drug therapy; Translations: [Other terminal manager (current) drug therapy] Onset: 08-31-2012 07-19-2015 Past or Other Problems Problem Classification Problem Date Documented Da te Episodic/Chronic Coronary atherosclerosis and other heart disease (3 sources) Coronary angioplasty status; Translations: [Coronary angioplasty status] Onset: 12-12-2010 12-12-2010 Episodic Other aftercare (4 sources) Long-term (current) use of other medications; Translations: [Other terminal manager (current) drug therapy] Onset: 08-31-2012 08-31-2012 Episodic Other nutritional; endocrine; and metabolic disorders (3 sources) Body mass index (BMI) 25.0-25.9, adult; Translations: [Body mass index (BMI) 25.0-25.9, adult] Onset: 10-25-2014 10-25-2014 Episodic Residual codes; unclassified (3 sources) FH: Hypertension; Translations: [Family history of ischemic heart disease and other diseases of the circulatory system] 10-25-2014 Episodic Shock (3 sources) Cardiogenic shock; Translations: [Cardiogenic shock] Onset: 12-12-2010 12-12-2010 Episodic Results Test Name Value Interpretation Reference Range Facil ity Vital Signs Date Time Vital Sign Value Performing Clinician Dragan reeves 05-30-2016 10:17-0500 BMI (Body Mass Index) 25.78 kg/m2 Harumi [facility] Work Phone: 05-30-2016 10:17-0500 BP Diastolic 60 mm[Hg] Harumi DeFinis [facility] Work Phone: 05-30-2016 10:17-0500 BP Systolic 120 mm[Hg] Harumi DeFinis [facility] Work Phone: 05-30-2016 10:17-0500 BSA (Body Surface Area) 1.73 m2 Harumi DeFinis [facility] Work Phone: 05-30-2016 10:17-0500 Pulse (Heart Rate) 60 /min Harumi DeFinis [facility] Work Phone: 05-30-2016 10:17-0500 Respiratory Rate 20 /min Harumi DeFinis [facility] Work Phone: 05-30-2016 10:17-0500 Weight 68.13 kg Harumi DeFinis [facility] Work Phone: 10-25-2014 16:18-0400 Heart rate 64 /min Harumi DeFinis [facility] Work Phone: 07-01-2014 14:22-0500 BP Diastolic 64 mm[Hg] Harumi DeFinis [facility] Work Phone: 07-01-2014 14:22-0500 BP Systolic 140 mm[Hg] Harumi DeFinis [facility] Work Phone: 07-01-2014 14:22-0500 BP Systolic 142 mm[Hg] Harumi DeFinis [facility] Work Phone: 07-01-2014 14:22-0500 Pulse (Heart Rate) 72 /min Harumi DeFinis [facility] Work Phone: 07-01-2014 14:22-0500 Pulse (Heart Rate) 64 /min [facility] Work Phone: 10-31-2011 14:53-0400 Height 162.56 cm [facility] Work Phone: Procedures Date Procedure Procedure Detail Performing Clinician Start: 11-21-2016 End: 12-20-2016 *Hepatic Function Panel Conchita Lee Start: 11-21-2016 End: 12-20-2016 Lipid panel [AGGREGATE] Conchita Lee Start: 07-11-2016 End: 07-17-2016 Lipid panel [AGGREGATE] Conchita Lee Start: 05-30-2016 End: 11-14-2016 Follow Up Appt 6 months Conchita Lee Start: 05-30-2016 End: 11-14-2016 Icd device progr destiny dotson i, MD Start: 05-30-2016 End: 05-30-2016 MM Archie Avila MD Start: 05-30-2016 End: 11-14-2016 [facility] Archie Avila MD Start: 12-22-2015 End: 01-09-2016 *Hepatic Function Panel Conchita Lee Start: 12-22-2015 End: 01-09-2016 Lipid panel [AGGREGATE] Conchita Lee Start: 10-03-2015 End: 11-14-2016 Follow Up Appt 3 months Conchita Lee Start: 10-03-2015 End: 11-14-2016 Icd device progr destiny dotson i, MD Start: 10-03-2015 End: 11-14-2016 Pacer Clinic Archie Avila MD Start: 07-14-2015 End: 07-24-2015 [facility] Archie Avila MD Start: 07-14-2015 End: 07-14-2015 Follow Up Appt 6 months Conchita Lee Start: 07-14-2015 End: 07-14-2015 [facility] Archie Avila MD Start: 05-23-2015 End: 11-14-2016 Follow Up Appt 3 months Regina Soto PA-C Work Phone: Start: 05-23-2015 End: 11-14-2016 Icd device progr eval, олегt Regina Soto PA-C Work Phone: Start: 05-23-2015 End: 11-14-2016 [facility] Regina Soto PA-C Work Phone: Start: 02-14-2015 End: 11-14-2016 Follow Up Appt 3 months Conchita Lee Start: 02-14-2015 End: 02-14-2015 Icd device progr mauri, destiny Millan i, MD Start: 02-14-2015 End: 11-14-2016 [facility] Archie Avila MD Start: 11-07-2014 End: 11-14-2016 Follow Up Appt 3 months Regina Soto PA-C Work Phone: Start: 11-07-2014 End: 11-14-2016 Icd device progr eval, mult Regina Soto PA-C Work Phone: Start: 11-07-2014 End: 11-14-2016 [facility] Regina Soto PA-C Work Phone: Start: 10-25-2014 End: 10-25-2014 MEDICAID PLAN COMPLIANCE DIRECTOR Regina Soto PA-C Work Phone: Start: 10-25-2014 End: 10-26-2014 Documentation of current medications Regina Soto PA-C Work Phone: Start: 10-25-2014 End: 10-25-2014 Electrocardiogram, complete Regina Soto PA-C Work Phone: Start: 10-25-2014 End: 10-25-2014 Follow Up Appt 6 months Regina Soto PA-C Work Phone: Start: 10-17-2014 End: 07-18-2015 *Hepatic Function Panel Conchita Lee Start: 10-17-2014 End: 07-18-2015 Lipid panel [AGGREGATE] Conchita Lee Start: 08-01-2014 End: 10-19-2014 Follow Up Appt 3 months Regina Soto PA-C Work Phone: Start: 08-01-2014 End: 10-19-2014 Icd device progr eval, mult Regina Soto PA-C Work Phone: Start: 08-01-2014 End: 10-19-2014 [facility] Clinic Regina Soto PA-C Work Phone: Start: 07-01-2014 End: 07-01-2014 Follow Up Appt 4 months Conchita Lee Start: 07-01-2014 End: 07-01-2014 MMM Archie Avila MD Start: 04-15-2014 End: 10-19-2014 *Hepatic Function Panel Conchita Lee Start: 04-15-2014 End: 04-18-2014 Follow Up Appt 6 months Conchita Lee Start: 04-15-2014 End: 10-19-2014 Lipid panel [AGGREGATE] Conchita Lee Start: 04-15-2014 End: 04-18-2014 MAYO Avila MD Start: 01-28-2014 End: 10-19-2014 Follow Up Appt 3 months Regina Soto PA-C Work Phone: Start: 01-28-2014 End: 01-28-2014 Icd device progr eval, mult Regina Soto PA-C Work Phone: Start: 01-28-2014 End: 10-19-2014 Pac[facility] Clinic Regina Soto PA-C Work Phone: Start: 01-21-2014 End: 04-18-2014 *Hepatic Function Panel Conchita Lee Start: 01-21-2014 End: 04-18-2014 Lipid panel [AGGREGATE] Conchita Lee Start: 10-14-2013 End: 10-19-2014 Follow Up Appt 3 months Conchita Lee Start: 10-14-2013 End: 10-19-2014 Icd device progr eval, mult Archie Millan i, MD Start: 10-14-2013 End: 10-19-2014 [facility] Archie Avila MD Start: 08-17-2013 End: 08-17-2013 MEDICAID PLAN COMPLIANCE DIRECTOR Regina Soto PA-C Work Phone: Start: 08-17-2013 End: 08-17-2013 Follow Up Appt 6 months Regina Soto PA-C Work Phone: Start: 08-17-2013 End: 08-17-2013 Follow Up Appt Other Regina Soto PA-C Work Phone: Start: 07-24-2013 End: 08-20-2013 *Hepatic Function Panel Conchita Lee Start: 07-24-2013 End: 08-20-2013 Lipid panel [AGGREGATE] Conchita Lee Start: 07-16-2013 End: 08-06-2013 Follow Up Appt 3 months Regina Soto PA-C Work Phone: Start: 07-16-2013 End: 07-16-2013 Icd device progr evолег mukherjeet Regina Soto PA-C Work Phone: Start: 07-16-2013 End: 08-06-2013 Pacer Clinic Regina Soto PA-C Work Phone: Start: 03-11-2013 End: 08-06-2013 Follow Up Appt 3 months Kyler Herrera MD Start: 03-11-2013 End: 03-11-2013 Icd device progr destiny dotson MD Start: 03-11-2013 End: 08-06-2013 Pacer Clinic Kyler Herrera MD Start: 02-19-2013 End: 02-23-2013 *Hepatic Function Panel Conchita Lee Start: 02-19-2013 End: 03-01-2013 Echocardiography Archie Avila MD Start: 02-19-2013 End: 02-19-2013 Follow Up Appt 6 months Conchita Lee Start: 02-19-2013 End: 02-23-2013 Lipid panel [AGGREGATE] Conchita Lee Start: 01-21-2013 End: 02-23-2013 *Hepatic Function Panel Conchita Lee Start: 01-21-2013 End: 02-23-2013 Lipid panel [AGGREGATE] Conchita Lee Start: 11-26-2012 End: 08-06-2013 Follow Up Appt 3 months Conchita Lee Start: 11-26-2012 End: 08-06-2013 Icd device progr eval, mult Archie Millan i, MD Start: 11-26-2012 End: 08-06-2013 Pacer Clinic Archie Avila MD Start: 08-21-2012 End: 08-31-2012 *Hepatic Function Panel Conchita Lee Start: 08-21-2012 End: 08-06-2013 MEDICAID PLAN COMPLIANCE DIRECTOR Archie Avila MD Start: 08-21-2012 End: 08-06-2013 Device Interrogation Archie Avila MD Start: 08-21-2012 End: 08-06-2013 Follow Up Appt 6 months Conchita Lee Start: 08-21-2012 End: 08-31-2012 Lipid panel [AGGREGATE] Conchita Lee Start: 08-21-2012 End: 08-31-2012 Nuclear stress test -adenosine Archie Avila MD Start: 10-31-2011 End: 10-31-2011 Follow Up Appt 6 months Conchita Lee Start: 12-12-2010 Implantation of automatic cardiac defibrillator IMPLANTATION OF DEFIBRILLATOR, HX OF Linda Solano Plan of Treatment Date Care Activity Detail Author Start: 06-13-2017 End: 12-20-2016 *Hepatic Function Panel *Hepatic Function Panel [facility] Work Phone: Start: 06-13-2017 End: 12-20-2016 Lipid panel [AGGREGATE] *Lipid Profile CC PCP [facility] Work Phone: Start: 01-15-2017 End: 07-18-2016 *Hepatic Function Panel *Hepatic Function Panel [facility] Work Phone: Start: 01-15-2017 End: 07-18-2016 Lipid panel [AGGREGATE] *Lipid Profile CC PCP [facility] Work Phone: Start: 11-21-2016 End: 12-20-2016 *Hepatic Function Panel *Hepatic Function Panel [facility] Work Phone: Start: 11-21-2016 End: 12-20-2016 Lipid panel [AGGREGATE] *Lipid Profile CC PCP [facility] Work Phone: Start: 07-11-2016 End: 07-17-2016 Lipid panel [AGGREGATE] *Lipid Profile CC PCP [facility] Work Phone: Start: 05-30-2016 End: 11-14-2016 Follow Up Appt 6 months Follow Up Appt 6 months [facility] Work Phone: Start: 05-30-2016 End: 05-30-2016 MMM MMM [facility] Work Phone: Start: 05-30-2016 End: 11-14-2016 Pac[facility] Clinic [facility] Work Phone: Start: 12-22-2015 End: 01-09-2016 *Hepatic Function Panel *Hepatic Function Panel [facility] Work Phone: Start: 12-22-2015 End: 01-09-2016 Lipid panel [AGGREGATE] *Lipid Profile CC PCP [facility] Work Phone: Start: 10-03-2015 End: 11-14-2016 Follow Up Appt 3 months Follow Up Appt 3 months [facility] Work Phone: Start: 10-03-2015 End: 11-14-2016 Pacer Clinic [facility] Work Phone: Start: 07-14-2015 End: 07-14-2015 Echocardiography Echocardiogram (complete) [facility] Work Phone: Start: 07-14-2015 End: 07-14-2015 Follow Up Appt 6 months Follow Up Appt 6 months [facility] Work Phone: Start: 07-14-2015 End: 07-14-2015 MMM MMM [facility] Work Phone: Start: 05-23-2015 End: 11-14-2016 Follow Up Appt 3 months Follow Up Appt 3 months [facility] Work Phone: Start: 05-23-2015 End: 11-14-2016 Pacer Clinic [facility] Work Phone: Start: 02-14-2015 End: 11-14-2016 Follow Up Appt 3 months Follow Up Appt 3 months [facility] Work Phone: Start: 02-14-2015 End: 11-14-2016 Pacer Clinic [facility] Work Phone: Start: 11-07-2014 End: 11-14-2016 Follow Up Appt 3 months Follow Up Appt 3 months [facility] Work Phone: Start: 11-07-2014 End: 11-14-2016 Pacer Clinic [facility] Work Phone: Start: 10-25-2014 End: 10-25-2014 MEDICAID PLAN COMPLIANCE DIRECTOR MEDICAID PLAN COMPLIANCE DIRECTOR [facility] Work Phone: Start: 10-25-2014 End: 10-25-2014 Electrocardiogram, complete EKG (In office) [facility] Work Phone: Start: 10-25-2014 End: 10-25-2014 Follow Up Appt 6 months Follow Up Appt 6 months [facility] Work Phone: Start: 10-17-2014 End: 07-18-2015 *Hepatic Function Panel *Hepatic Function Panel [facility] Work Phone: Start: 10-17-2014 End: 07-18-2015 Lipid panel [AGGREGATE] *Lipid Profile CC PCP [facility] Work Phone: Start: 08-01-2014 End: 10-19-2014 Follow Up Appt 3 months Follow Up Appt 3 months [facility] Work Phone: Start: 08-01-2014 End: 10-19-2014 Pacer Clinic [facility] Work Phone: Start: 07-01-2014 End: 07-01-2014 Follow Up Appt 4 months Follow Up Appt 4 months [facility] Work Phone: Start: 07-01-2014 End: 07-01-2014 MMM MMM [facility] Work Phone: Start: 04-15-2014 End: 10-19-2014 *Hepatic Function Panel *Hepatic Function Panel [facility] Work Phone: Start: 04-15-2014 End: 04-18-2014 Follow Up Appt 6 months Follow Up Appt 6 months [facility] Work Phone: Start: 04-15-2014 End: 10-19-2014 Lipid panel [AGGREGATE] *Lipid Profile CC PCP [facility] Work Phone: Start: 04-15-2014 End: 04-18-2014 MMM MMM [facility] Work Phone: Start: 01-28-2014 End: 10-19-2014 Follow Up Appt 3 months Follow Up Appt 3 months [facility] Work Phone: Start: 01-28-2014 End: 10-19-2014 Pacer Clinic [facility] Work Phone: Start: 01-21-2014 End: 04-18-2014 *Hepatic Function Panel *Hepatic Function Panel [facility] Work Phone: Start: 01-21-2014 End: 04-18-2014 Lipid panel [AGGREGATE] *Lipid Profile CC PCP [facility] Work Phone: Start: 10-14-2013 End: 10-19-2014 Follow Up Appt 3 months Follow Up Appt 3 months [facility] Work Phone: Start: 10-14-2013 End: 10-19-2014 Pacer Clinic [facility] Work Phone: Start: 08-17-2013 End: 08-17-2013 MEDICAID PLAN COMPLIANCE DIRECTOR MEDICAID PLAN COMPLIANCE DIRECTOR [facility] Work Phone: Start: 08-17-2013 End: 08-17-2013 Follow Up Appt 6 months Follow Up Appt 6 months [facility] Work Phone: Start: 08-17-2013 End: 08-17-2013 Follow Up Appt Other Follow Up Appt Other [facility] Work Phone: Start: 07-24-2013 End: 08-20-2013 *Hepatic Function Panel *Hepatic Function Panel [facility] Work Phone: Start: 07-24-2013 End: 08-20-2013 Lipid panel [AGGREGATE] *Lipid Profile CC PCP [facility] Work Phone: Start: 07-16-2013 End: 08-06-2013 Follow Up Appt 3 months Follow Up Appt 3 months [facility] Work Phone: Start: 07-16-2013 End: 08-06-2013 Pacer Clinic [facility] Work Phone: Start: 03-11-2013 End: 08-06-2013 Follow Up Appt 3 months Follow Up Appt 3 months [facility] Work Phone: Start: 03-11-2013 End: 08-06-2013 Pacer Clinic [facility] Work Phone: Start: 02-19-2013 End: 02-23-2013 *Hepatic Function Panel *Hepatic Function Panel [facility] Work Phone: Start: 02-19-2013 End: 03-01-2013 Echocardiography Echocardiogram (complete) [facility] Work Phone: Start: 02-19-2013 End: 02-19-2013 Follow Up Appt 6 months Follow Up Appt 6 months [facility] Work Phone: Start: 02-19-2013 End: 02-23-2013 Lipid panel [AGGREGATE] *Lipid Profile CC PCP [facility] Work Phone: Start: 02-19-2013 End: 02-19-2013 MMM MMM [facility] Work Phone: Start: 01-21-2013 End: 02-23-2013 *Hepatic Function Panel *Hepatic Function Panel [facility] Work Phone: Start: 01-21-2013 End: 02-23-2013 Lipid panel [AGGREGATE] *Lipid Profile [facility] Work Phone: Start: 11-26-2012 End: 08-06-2013 Follow Up Appt 3 months Follow Up Appt 3 months [facility] Work Phone: Start: 11-26-2012 End: 08-06-2013 Pacer Clinic [facility] Work Phone: Start: 08-21-2012 End: 08-31-2012 *Hepatic Function Panel *Hepatic Function Panel [facility] Work Phone: Start: 08-21-2012 End: 08-06-2013 MEDICAID PLAN COMPLIANCE DIRECTOR MEDICAID PLAN COMPLIANCE DIRECTOR [facility] Work Phone: Start: 08-21-2012 End: 08-06-2013 Device Interrogation Device Interrogation [facility] Work Phone: Start: 08-21-2012 End: 08-06-2013 Follow Up Appt 6 months Follow Up Appt 6 months [facility] Work Phone: Start: 08-21-2012 End: 08-31-2012 Lipid panel [AGGREGATE] *Lipid Profile [facility] Work Phone: Start: 08-21-2012 End: 08-21-2012 Nuclear stress test -adenosine Nuclear stress test -adenosine [facility] Work Phone: Start: 10-31-2011 End: 10-31-2011 Follow Up Appt 6 months Follow Up Appt 6 months [facility] Work Phone: Patient Education [facility] Work Phone: Additional Source Comments FOR RECORDS PERTAINING TO PATIENTS WHO ARE OR HAVE BEEN ENROLLED IN A CHEMICAL DEPENDENCY/SUBSTANCEABUSE PROGRAM, SOME INFORMATION MAY BE OMITTED. This clinical summary was aggregated from multiple sources. Caution should be exercised in using it in the provision of clinical care. This summary normalizes information from multiple sources, and as a consequence, information in this document may materially change the coding, format and clinical context of patient data. In addition, data may be omitted in some cases. CLINICAL DECISIONS SHOULD BE BASED ON THE PRIMARY CLINICAL RECORDS. [facility]. provides no warranty or guarantee of the accuracy or completeness of information in this document.
[2023-08-29 12:11] LABS: Absolute Lymphocyte Count 3.63 X10^3/uL (0.83-4.51); Basophil# 0.06 X10^3/uL; Basophil% 0.4 % (0-1); Eosinophil# 0.49 X10^3/uL; Eosinophils% 3.4 % (0-5); Hematocrit 39.2 % (40-54); Hemoglobin 12.9 g/dL (13.0-16.5); Lymphocyte # 3.63 X10^3/ul (0.83-4.51); Lymphocyte % 25.2 % (19-41); Mean Corp Hgb Conc 32.9 g/dL (32-36); Mean Corpuscular Hgb 30.5 pg (27.0-32.0); Mean Corpuscular Volume 92.7 fL (80-94); Mean Platelet Vol. 11.4 fl (6.2-12.0); Monocyte# 1.14 X10^3/uL; Monocyte% 7.9 % (0-10); NRBC Flagged by Analyzer 0 % (0-5); Neutrophil # 9.02 X10^3/uL (2.7-7.7); Neutrophil % 62.7 % (47-70); Platelet Count 237 K/mm3 (150-450); RBC Distribution Width CV 13.5 % (11.6-14.6); RBC Distribution Width SD 45.8 fl (35.1-43.9); Red Blood Count 4.23 M/mm3 (4.6-6.2); White Blood Count 14.4 K/mm3 (4.4-11.0)
[2023-08-29 12:36] LABS: Anion Gap 2 (5-15); BUN 14 mg/dL (7-18); BUN/Creat Ratio 12.5 RATIO (10-20); Calcium,Total 9.5 mg/dL (8.5-10.1); Chloride 104 mmol/L (98-107); Creatinine, Serum 1.12 mg/dL (0.70-1.30); EST Glomerular Filtration Rate 69 mL/min (>60); Est Glom Filt Rate - Afr Amer 84 mL/min (>60); Glucose 86 mg/dL (74-106); Potassium 4.3 mmol/L (3.5-5.1); Sodium Level 137 mmol/L (136-145)
[2023-08-29 12:37] LABS: BNP,B-Type NATRIURETIC PEPTIDE 52.2 pg/mL (0-100)
== END | disposition home or self-care (01) ==
LOC: LAB 11:22
PROVIDERS: PCP Family Medicine; Referring Provider Nurse Practitioner Gerontology; Visit Provider Nurse Practitioner Gerontology
DX: R06.00 Dyspnea, unspecified (principal)
CPT/HCPCS: 36415; 80048; 83880; 85025

== ENCOUNTER → 2023-09-04 | Outpatient (CLI) | payer MEDICARE, SELFPAY ==
[2023-09-04 12:24] LABS: Absolute Lymphocyte Count 3.39 X10^3/uL (0.83-4.51); Absolute Neutrophil Count 12.5 X10^3/uL (2.0-7.7); Basophil# 0.08 X10^3/uL; Basophil% 0.5 % (0-1); Eosinophils% 2.3 % (0-5); Hematocrit 38.2 % (40-54); Hemoglobin 12.7 g/dL (13.0-16.5); Lymphocyte # 3.39 X10^3/ul (0.83-4.51); Lymphocyte % 19.1 % (19-41); Mean Corp Hgb Conc 33.2 g/dL (32-36); Mean Corpuscular Hgb 30.5 pg (27.0-32.0); Mean Corpuscular Volume 91.6 fL (80-94); Mean Platelet Vol. 11.5 fl (6.2-12.0); Monocyte# 1.29 X10^3/uL; Monocyte% 7.3 % (0-10); NRBC Flagged by Analyzer 0 % (0-5); Neutrophil # 12.52 X10^3/uL (2.7-7.7); Neutrophil % 70.3 % (47-70); Platelet Count 242 K/mm3 (150-450); RBC Distribution Width CV 13.4 % (11.6-14.6); RBC Distribution Width SD 45.2 fl (35.1-43.9); Red Blood Count 4.17 M/mm3 (4.6-6.2); White Blood Count 17.8 K/mm3 (4.4-11.0)
--- OUTSIDE RECORDS SUMMARY | 2023-09-04 18:34 | XMS RPT_ITS | CCD ---
Author Name Unknown Address [address] [place] [address] Organization [facility] Care Team Providers Care Aquatic Habitat Biologist Name Role Phone Linda Solano Unavailable Unavailable MD Austin, Archie José Unavailable Linda Solano Unavailable Unavailable Medications Completed/Discontinued Medications Medication Drug Class(es) Dates Sig (Normalized) Sig (Original) aspirin 325 mg oral tablet (3 sources) Platelet Aggregation Inhibitor, Nonsteroidal Anti-inflammatory Drug Start: 12-12-2010 take 1 tablet by mouth once daily ASPIRIN 325 MG TABS One tablet by mouth daily ASPIRIN [id number] Floridalma Alvarado atorvastatin 80 mg oral tablet (9 sources) HMG-CoA Reductase Inhibitor Start: 12-12-2010 take 1 tablet by mouth once daily LIPITOR 80 MG TABS One tablet by mouth daily ATORVASTATIN CALCIUM [id number] Regina Soto PA-C carvedilol 25 mg oral tablet (12 sources) alpha-Adrenergic [place], beta-Adrenergic [place] Start: 12-12-2010 take 1 tablet by mouth twice daily CARVEDILOL 25 MG TABS One tablet by mouth twice daily CARVEDILOL [id number] Archie Avila MD clopidogrel 75 mg oral tablet (12 sources) P2Y12 Platelet Inhibitor Start: 12-12-2010 take 1 tablet by mouth once daily PLAVIX 75 MG TABS One tablet by mouth daily CLOPIDOGREL BISULFATE [id number] Archie Avila MD lisinopril 10 mg oral tablet (12 sources) Angiotensin Converting Enzyme Inhibitor Start: 12-12-2010 take 1 tablet by mouth once daily LISINOPRIL 10 MG TABS One tablet by mouth daily LISINOPRIL [id number] Archie Avila MD nitroglycerin 0.4 mg sublingual tablet (6 sources) Nitrate Vasodilator Start: 08-21-2012 NITROSTAT 0.4 MG SUBL 1 tablet under tongue every 5 min up to 3 X NITROGLYCERIN [id number] Regina Soto PA-C Problems Active Problems Problem [...] (2 sources) Long-term drug therapy; Translations: [Other residential (current) drug therapy] Onset: 08-31-2012 07-19-2015 Past or Other Problems Problem Classification Problem Date Documented Da te Episodic/Chronic Coronary atherosclerosis and other heart disease (3 sources) Coronary angioplasty status; Translations: [Coronary angioplasty status] Onset: 12-12-2010 12-12-2010 Episodic Other aftercare (4 sources) Long-term (current) use of other medications; Translations: [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] Onset: 08-31-2012 08-31-2012 Episodic [...] (Body Mass Index) 25.78 kg/m2 Harumi DeFinis [facility] Work Phone: 05-30-2016 10:17-0500 BP Diastolic 60 mm[Hg] Harumi DeFinis [facility] Work Phone: 05-30-2016 10:17-0500 BP Systolic 120 mm[Hg] Harumi DeFinis [facility] Work Phone: 05-30-2016 10:17-0500 BSA (Body Surface Area) 1.73 m2 Harumi DeFinis [facility] Work Phone: 05-30-2016 10:17-0500 Pulse (Heart Rate) 60 /min Harumi DeFinis [facility] Work Phone: 05-30-2016 10:17-0500 Respiratory Rate 20 /min Harumi DeFinis [facility] Work Phone: 05-30-2016 10:17-0500 Weight 68.13 kg Harumi DeFinis [facility] Work Phone: 10-25-2014 16:18-0400 Heart rate 64 /min Harumi DeFinis [facility] Work Phone: 07-01-2014 14:22-0500 BP Diastolic 64 mm[Hg] Harumi DeFinis [facility] Work Phone: 07-01-2014 14:22-0500 BP Systolic 140 mm[Hg] Harumi DeFinis [facility] Work Phone: 07-01-2014 14:22-0500 BP Systolic 142 mm[Hg] Harumi DeFinis [facility] Work Phone: 07-01-2014 14:22-0500 Pulse (Heart Rate) 72 /min Harumi DeFinis [facility] Work Phone: 07-01-2014 14:22-0500 Pulse (Heart Rate) 64 /min [facility] Work Phone: 10-31-2011 14:53-0400 Height 162.56 cm Harumi [facility] Work Phone: Procedures Date Procedure [...] Archie Avila MD Start: 07-14-2015 End: 07-24-2015 [facility] Archie Avila MD Start: 07-14-2015 End: 07-14-2015 Follow Up Appt 6 months Conchita Lee Start: 07-14-2015 End: 07-14-2015 [facility] Archie Avila MD Start: 05-23-2015 End: 11-14-2016 [...] PA-C Work Phone: Start: 10-25-2014 End: 10-25-2014 [employer] Regina Soto PA-C Work Phone: Start: 10-25-2014 [...] Archie Avila MD Start: 08-17-2013 End: 08-17-2013 [employer] Regina Soto PA-C Work Phone: Start: 08-17-2013 [...] Panel Conchita Lee Start: 08-21-2012 End: 08-06-2013 [employer] Archie Avila MD Start: 08-21-2012 End: 08-06-2013 [...] 12-20-2016 *Hepatic Function Panel *Hepatic Function Panel [facility] Work Phone: Start: 06-13-2017 End: 12-20-2016 Lipid panel [AGGREGATE] *Lipid Profile CC PCP [facility] Work Phone: Start: 01-15-2017 End: 07-18-2016 *Hepatic Function Panel *Hepatic Function Panel [facility] Work Phone: Start: 01-15-2017 End: 07-18-2016 Lipid panel [AGGREGATE] *Lipid Profile CC PCP [facility] Work Phone: Start: 11-21-2016 End: 12-20-2016 *Hepatic Function Panel *Hepatic Function Panel [facility] Work Phone: Start: 11-21-2016 End: 12-20-2016 Lipid panel [AGGREGATE] *Lipid Profile CC PCP [facility] Work Phone: Start: 07-11-2016 End: 07-17-2016 Lipid panel [AGGREGATE] *Lipid Profile CC PCP [facility] Work Phone: Start: 05-30-2016 End: 11-14-2016 Follow Up Appt 6 months Follow Up Appt 6 months [facility] Work Phone: Start: 05-30-2016 End: 05-30-2016 MMM MMM [facility] Work Phone: Start: 05-30-2016 End: 11-14-2016 [facility] Work Phone: Start: 12-22-2015 End: 01-09-2016 *Hepatic Function Panel *Hepatic Function Panel [facility] Work Phone: Start: 12-22-2015 End: 01-09-2016 Lipid panel [AGGREGATE] *Lipid Profile CC PCP [facility] Work Phone: Start: 10-03-2015 End: 11-14-2016 Follow Up Appt 3 months Follow Up Appt 3 months [facility] Work Phone: Start: 10-03-2015 End: 11-14-2016 Pacer Clinic [facility] Work Phone: Start: 07-14-2015 End: 07-14-2015 Echocardiography Echocardiogram (complete) [facility] Work Phone: Start: 07-14-2015 End: 07-14-2015 Follow Up Appt 6 months Follow Up Appt 6 months [facility] Work Phone: Start: 07-14-2015 End: 07-14-2015 MMM MMM [facility] Work Phone: Start: 05-23-2015 End: 11-14-2016 Follow Up Appt 3 months Follow Up Appt 3 months [facility] Work Phone: Start: 05-23-2015 End: 11-14-2016 Pacer Clinic [facility] Work Phone: Start: 02-14-2015 End: 11-14-2016 Follow Up Appt 3 months Follow Up Appt 3 months [facility] Work Phone: Start: 02-14-2015 End: 11-14-2016 Pacer Clinic [facility] Work Phone: Start: 11-07-2014 End: 11-14-2016 Follow Up Appt 3 months Follow Up Appt 3 months [facility] Work Phone: Start: 11-07-2014 End: 11-14-2016 Pacer Clinic [facility] Work Phone: Start: 10-25-2014 End: 10-25-2014 WOMEN'S GARMENT FITTER WOMEN'S GARMENT FITTER [facility] Work Phone: Start: 10-25-2014 End: 10-25-2014 Electrocardiogram, complete EKG (In office) [facility] Work Phone: Start: 10-25-2014 End: 10-25-2014 Follow Up Appt 6 months Follow Up Appt 6 months [facility] Work Phone: Start: 10-17-2014 End: 07-18-2015 *Hepatic Function Panel *Hepatic Function Panel [facility] Work Phone: Start: 10-17-2014 End: 07-18-2015 Lipid panel [AGGREGATE] *Lipid Profile CC PCP [facility] Work Phone: Start: 08-01-2014 End: 10-19-2014 Follow Up Appt 3 months Follow Up Appt 3 months [facility] Work Phone: Start: 08-01-2014 End: 10-19-2014 Pacer Clinic Pac[facility] Clinic [facility] Work Phone: Start: 07-01-2014 End: 07-01-2014 Follow Up Appt 4 months Follow Up Appt 4 months [facility] Work Phone: Start: 07-01-2014 End: 07-01-2014 MMM MMM [facility] Work Phone: Start: 04-15-2014 End: 10-19-2014 *Hepatic Function Panel *Hepatic Function Panel [facility] Work Phone: Start: 04-15-2014 End: 04-18-2014 Follow Up Appt 6 months Follow Up Appt 6 months [facility] Work Phone: Start: 04-15-2014 End: 10-19-2014 Lipid panel [AGGREGATE] *Lipid Profile CC PCP [facility] Work Phone: Start: 04-15-2014 End: 04-18-2014 MMM MMM [facility] Work Phone: Start: 01-28-2014 End: 10-19-2014 Follow Up Appt 3 months Follow Up Appt 3 months [facility] Work Phone: Start: 01-28-2014 End: 10-19-2014 Pacer Clinic Pac[facility] Clinic [facility] Work Phone: Start: 01-21-2014 End: 04-18-2014 *Hepatic Function Panel *Hepatic Function Panel [facility] Work Phone: Start: 01-21-2014 End: 04-18-2014 Lipid panel [AGGREGATE] *Lipid Profile CC PCP [facility] Work Phone: Start: 10-14-2013 End: 10-19-2014 Follow Up Appt 3 months Follow Up Appt 3 months [facility] Work Phone: Start: 10-14-2013 End: 10-19-2014 Pacer Clinic Pac[facility] Clinic [facility] Work Phone: Start: 08-17-2013 End: 08-17-2013 WOMEN'S GARMENT FITTER WOMEN'S GARMENT FITTER [facility] Work Phone: Start: 08-17-2013 End: 08-17-2013 Follow Up Appt 6 months Follow Up Appt 6 months [facility] Work Phone: Start: 08-17-2013 End: 08-17-2013 Follow Up Appt Other Follow Up Appt Other [facility] Work Phone: Start: 07-24-2013 End: 08-20-2013 *Hepatic Function Panel *Hepatic Function Panel [facility] Work Phone: Start: 07-24-2013 End: 08-20-2013 Lipid panel [AGGREGATE] *Lipid Profile CC PCP [facility] Work Phone: Start: 07-16-2013 End: 08-06-2013 Follow Up Appt 3 months Follow Up Appt 3 months [facility] Work Phone: Start: 07-16-2013 End: 08-06-2013 Pacer Clinic Pac[facility] Clinic [facility] Work Phone: Start: 03-11-2013 End: 08-06-2013 Follow Up Appt 3 months Follow Up Appt 3 months [facility] Work Phone: Start: 03-11-2013 End: 08-06-2013 Pacer Clinic [facility] Work Phone: Start: 02-19-2013 End: 02-23-2013 *Hepatic Function Panel *Hepatic Function Panel [facility] Work Phone: Start: 02-19-2013 End: 03-01-2013 Echocardiography Echocardiogram (complete) [facility] Work Phone: Start: 02-19-2013 End: 02-19-2013 Follow Up Appt 6 months Follow Up Appt 6 months [facility] Work Phone: Start: 02-19-2013 End: 02-23-2013 Lipid panel [AGGREGATE] *Lipid Profile CC PCP [facility] Work Phone: Start: 02-19-2013 End: 02-19-2013 MMM MMM [facility] Work Phone: Start: 01-21-2013 End: 02-23-2013 *Hepatic Function Panel *Hepatic Function Panel [facility] Work Phone: Start: 01-21-2013 End: 02-23-2013 Lipid panel [AGGREGATE] *Lipid Profile [facility] Work Phone: Start: 11-26-2012 End: 08-06-2013 Follow Up Appt 3 months Follow Up Appt 3 months [facility] Work Phone: Start: 11-26-2012 End: 08-06-2013 Pacer Clinic Pacer Clinic [facility] Work Phone: Start: 08-21-2012 End: 08-31-2012 *Hepatic Function Panel *Hepatic Function Panel [facility] Work Phone: Start: 08-21-2012 End: 08-06-2013 WOMEN'S GARMENT FITTER WOMEN'S GARMENT FITTER [facility] Work Phone: Start: 08-21-2012 End: 08-06-2013 Device Interrogation Device Interrogation [facility] Work Phone: Start: 08-21-2012 End: 08-06-2013 Follow Up Appt 6 months Follow Up Appt 6 months [facility] Work Phone: Start: 08-21-2012 End: 08-31-2012 Lipid panel [AGGREGATE] *Lipid Profile [facility] Work Phone: Start: 08-21-2012 End: 08-21-2012 Nuclear stress test -adenosine Nuclear stress test -adenosine [facility] Work Phone: Start: 10-31-2011 End: 10-31-2011 Follow Up Appt 6 months Follow Up Appt 6 months [facility] Work Phone: Patient Education [facility] Work Phone: Additional Source [...] BE BASED ON THE PRIMARY CLINICAL RECORDS. [facility] [employer] [facility]. provides no warranty or guarantee of the accuracy or completeness of information in this document.
== END | disposition home or self-care (01) ==
LOC: MFPLAB 10:39
PROVIDERS: PCP Family Medicine; Visit Provider Family Medicine
DX: D72.829 Elevated white blood cell count, unspecified (principal)
CPT/HCPCS: 36415; 85025

== ENCOUNTER → 2023-10-01 | Outpatient (CLI) | payer MEDICARE, SELFPAY ==
--- NOTE | 2023-10-01 06:52 | ECHOD_ITS ---
Reason For Study: CAD, Dyspnea Procedure This was a 2D Doppler, Color Flow transthoracic echocardiogram. Exam performed in department. Left Ventricle Normal LV size. Left ventricular systolic function is normal. The estimated ejection fraction is 65 %. No regional wall motion abnormalities noted. Right Ventricle Normal RV size. Normal systolic function. Atria Normal left atrium. Normal right atrium. ICD or pacer leads identified within the right atrium. Echogenic filamentous structure noted on the right atrial lead. Recommend further investigation. Mitral Valve Normal mitral valve. Tricuspid Valve Normal tricuspid valve. Mild to moderate (1-2+) tricuspid valve insufficiency. Pulmonary artery systolic pressure is 46 mmHg. Aortic Valve Trisinus/trileaflet aortic valve. Pulmonic Valve Normal pulmonic valve. Great Vessels Normal aortic root. The pulmonary artery is normal size. Normal inferior vena cava. Pericardium/Pleural No pericardial effusion. MMode/2D Measurements & Calculations LVIDd: 4.4 cm IVSd: 0.82 cm Ao root diam: 3.1 cm LVIDs: 2.9 cm LVPWd: 0.71 cm LA dimension: 3.0 cm RVDd: 3.5 cm FS: 34.5 % LAV(MOD-bp): 44.6 ml LVAd ap4: 21.8 cm2 SV(MOD-sp4): 35.8 ml LAV(MOD-bp) Indexed: 26.9 ml/m2 LVLd ap4: 6.8 cm LAV(MOD-sp2): 48.2 ml EDV(MOD-sp4): 57.5 ml LAV(MOD-sp4): 41.8 ml EDV(sp4-el): 58.8 ml LVAs ap4: 11.8 cm2 LVLs ap4: 5.6 cm ESV(MOD-sp4): 21.7 ml ESV(sp4-el): 21.1 ml EF(MOD-sp4): 62.3 % EF(sp4-el): 64.1 % SV(sp4-el): 37.7 ml LA A4 area: 16.5 cm2 RA A4 area: 16.4 cm2 TAPSE: 2.2 cm Time Measurements MV dec time: 0.17 sec Doppler Measurements & Calculations MV E max nas: 86.7 cm/sec Lat Peak E' Nas: 13.2 cm/sec Med Peak E' Nas: 12.5 cm/sec MV A max nas: 86.8 cm/sec E/E' lat: 6.6 E/E' med: 6.9 MV E/A: 1.00 MV V2 max: 95.6 cm/sec MV P1/2t max nas: 91.1 cm/sec Ao V2 max: 192.0 cm/sec MV max P.7 mmHg MV P1/2t: 57.5 msec Ao max P.8 mmHg MV V2 mean: 56.4 cm/sec MV dec slope: 463.4 cm/sec2 Ao V2 mean: 131.1 cm/sec MV mean P.5 mmHg Ao mean P.7 mmHg MV V2 VTI: 27.3 cm MVA(P1/2t): 3.8 cm2 Ao V2 VTI: 41.8 cm AV (velocity ratio): 0.73 LV V1 max: 141.4 cm/sec PA V2 max: 124.7 cm/sec TR max nas: 327.3 cm/sec LV V1 max P.0 mmHg PA V2 mean: 92.5 cm/sec TR max P.8 mmHg LV V1 mean P.2 mmHg LV V1 mean: 95.4 cm/sec LV V1 VTI: 30.4 cm ECHO/Echo Complete Interpretation Summary Normal LV size. Left ventricular systolic function is normal. The estimated ejection fraction is 65 %. Echogenic filamentous structure noted on the right atrial lead. Recommend furth er investigation. Pulmonary artery systolic pressure is 46 mmHg. Ordering Physician: Jacqui Loya Referring Physician: Dylan Cardoza Performed By: Betito Acosta RCS
--- NOTE | 2023-10-01 15:45 | STRESSREP_ITS ---
Stress Test Report Pharmacologic myocardial perfusion stress test. 68-year-old man with a history of dyspnea status post AICD placement Resting EKG demonstrates sinus rhythm with ventricular pacing with a rate of 64 bpm. Resting blood pressure is 128/72 mmHg. 0.4 mg of regadenoson was infused per usual protocol followed by rapid intravenous saline flush injection. Continuous EKG monitoring was performed. The maximum heart rate was 93 bpm which was 60% of max impacted heart rate the maximum workload was 1 metabolic equivalent. At rest there were no ST or T wave changes noted to suggest ischemia and at peak infusion nonspecific ST changes were noted which did not meet the criteria for ischemia. No clinical angina is noted. The final blood pressure was 126/64 mmHg. Myocardial perfusion protocol. 11.1 mCi of technetium 99m sestamibi was injected at rest. 0.4 mg of regadenoson was infused per usual protocol. At peak infusion 33.4 mCi of janeth hnetium 99m sestamibi was injected stress images were obtained stress and rest images were reconstructed and compared in the short axis vertical long and horizontal long axis. Gated images were also obtained. Perfusion SPECT analysis: Review of the stress images demonstrate normal uptake of tracer noted in all areas of the myocardium. The resting images similar demonstrated normal uptake of tracer noted in all areas of the myocardium. No areas of reversibility are noted to suggest ischemia and no previous infarct is noted. Gated SPECT analysis: The gated ejection fraction is 57%. Conclusion: Normal pharmacologic myocardial perfusion stress test. Preserved ejection fraction.
== END | disposition home or self-care (01) ==
PROVIDERS: PCP Family Medicine; Referring Provider Nurse Practitioner Gerontology; Visit Provider Nurse Practitioner Gerontology
DX: I25.5 Ischemic cardiomyopathy (principal); R06.00 Dyspnea, unspecified; I25.10 Atherosclerotic heart disease of native coronary artery without angina pectoris; Z95.5 Presence of coronary angioplasty implant and graft
CPT/HCPCS: 78452; 93017; 93306; A9500; A4216; J2785

== ENCOUNTER → 2023-11-04 | Outpatient (CLI) | payer MEDICARE, SELFPAY ==
[2023-11-04 16:30] LABS: Absolute Lymphocyte Count 2.88 X10^3/uL (0.83-4.51); Absolute Neutrophil Count 7.1 X10^3/uL (2.0-7.7); Basophil# 0.06 X10^3/uL; Basophil% 0.5 % (0-1); Eosinophil# 0.27 X10^3/uL; Eosinophils% 2.4 % (0-5); Hematocrit 37.4 % (40-54); Hemoglobin 12.3 g/dL (13.0-16.5); Lymphocyte # 2.88 X10^3/ul (0.83-4.51); Lymphocyte % 25.2 % (19-41); Mean Corp Hgb Conc 32.9 g/dL (32-36); Mean Corpuscular Hgb 30.4 pg (27.0-32.0); Mean Corpuscular Volume 92.6 fL (80-94); Mean Platelet Vol. 11.9 fl (6.2-12.0); Monocyte# 1.06 X10^3/uL; Monocyte% 9.3 % (0-10); NRBC Flagged by Analyzer 0 % (0-5); Neutrophil # 7.14 X10^3/uL (2.7-7.7); Neutrophil % 62.3 % (47-70); Platelet Count 199 K/mm3 (150-450); RBC Distribution Width CV 14.7 % (11.6-14.6); RBC Distribution Width SD 50.3 fl (35.1-43.9); Red Blood Count 4.04 M/mm3 (4.6-6.2); White Blood Count 11.5 K/mm3 (4.4-11.0)
[2023-11-04 16:58] LABS: ALB/GLOB Ratio 0.9 RATIO (0.9-2.4); AST(SGOT) 19 U/L (15-37); Alanine Aminotransfer ALT/SGPT 21 U/L (16-61); Albumin, Serum 3.5 g/dL (3.2-5.0); Alkaline Phosphatase 85 U/L (45-117); Anion Gap 4 (5-15); BUN 18 mg/dL (7-18); BUN/Creat Ratio 14.9 RATIO (10-20); Calcium,Total 8.8 mg/dL (8.5-10.1); Chloride 103 mmol/L (98-107); Cholesterol 120 mg/dL (200); Creatinine, Serum 1.21 mg/dL (0.70-1.30); EST Glomerular Filtration Rate 63 mL/min (>60); Est Glom Filt Rate - Afr Amer 77 mL/min (>60); Globulin 3.8 g/dL (2.2-4.2); Glucose 75 mg/dL (74-106); High Density Lipoprotein 37 mg/dL; Magnesium 1.9 mg/dL (1.6-2.6); Potassium 3.5 mmol/L (3.5-5.1); Protein, Total 7.3 g/dL (6.4-8.2); Sodium Level 137 mmol/L (136-145); Thyroid Stim Hormone (TSH) 1.24 uIU/mL (0.358-3.74); Triglycerides 104 mg/dL; Very Low Density Lipoprotein 21 mg/dL (5-40)
== END | disposition home or self-care (01) ==
LOC: MFPLAB 14:10
PROVIDERS: PCP Family Medicine; Visit Provider Family Medicine
DX: I25.10 Atherosclerotic heart disease of native coronary artery without angina pectoris (principal); I10 Essential (primary) hypertension
CPT/HCPCS: 36415; 80053; 80061; 83735; 84443; 85025

== ENCOUNTER → 2023-11-28 | Outpatient (CLI) | payer MEDICARE, SELFPAY ==
[2023-11-28 12:40] LABS: Vitamin B12 377 pg/mL (211-911)
[2023-11-28 13:05] LABS: Ferritin 55 ng/mL (26-388); Iron 60 ug/dL (65-175); Iron Binding Capacity,Total 393 ug/dL (250-450); PERCENT IRON SATURATION 15.3 % (15.0-55.0)
== END | disposition home or self-care (01) ==
LOC: MFPLAB 10:38
PROVIDERS: PCP Family Medicine; Visit Provider Family Medicine
DX: D64.9 Anemia, unspecified (principal)
CPT/HCPCS: 36415; 82607; 82728; 83540; 83550

== ENCOUNTER → 2024-05-11 | Outpatient (CLI) | payer MEDICARE, SELFPAY ==
[2024-05-11 18:21] LABS: PSA,Total - Annual Screen 2.19 ng/mL (0.00-4.00)
== END | disposition home or self-care (01) ==
LOC: MFPLAB 14:38
PROVIDERS: PCP Family Medicine; Visit Provider Family Medicine
DX: Z12.5 Encounter for screening for malignant neoplasm of prostate (principal)
CPT/HCPCS: 36415; 84153; G0103

== ENCOUNTER → 2024-06-04 | Outpatient (CLI) | payer MEDICARE, SELFPAY ==
--- NOTE | 2024-06-04 14:05 | CT_ITS ---
STUDY: LOW DOSE CT LUNG CANCER SCREENING REASON FOR EXAM: Male, 69 years old. 1 1/2 pack per day smoker x47 years RADIATION DOSAGE (If Supplied By Facility): CTDIvol = ( 2.01 ) mGy, DLP = ( 70.97 ) mGycm TECHNIQUE: No contrast was administered. Low dose technique was utilized (average mAS-38 and kVp 120). 1.25 mm axial source images with a slice interval of 1.25-mm were reconstructed in lung windows. 2.5 mm axial source images with a slice interval of 2.5-mm were reconstructed in lung windows. 5.0 mm axial source images with a slice interval of 5.0-mm were reconstructed in soft tissue windows. COMPARISON: 05/22/2023 FINDINGS: Lung windows show underlying emphysema with nonspecific pleural thickening in both apices. Scattered chronic interstitial changes in both upper lung [place] unchanged from the previous study. There are tree-in-bud opacifications in both lung [place] suggesting small airways inflammation and evidence of chronic bronchitis but there is no organized infiltrate, effusion, or suspicious noncalcified mass or nodule. Limited soft tissue windows show normal-appearing thyroid gland. No suspicious adenopathy. There are calcified coronary vessels. Limited cuts through the upper abdomen do not show a suspicious abnormality. Bony structures show degenerative change Overall, no significant change since the previous study CT/Low Dose CT Lung Screening IMPRESSION: Lung-RADS category 2 - Continue annual screening with LDCT in 12 months. IMPORTANT NOTES FOR USE: ACR Lung-RADS Version 1.1 Assessment Categories Release Date: 2018 Category: Coded 0-4 bases on nodule(s) with highest degree of suspicion. Negative screen is defined as categories 1 and 2; a positive screen is defined as categories 3 and 4. Category 3 and 4A nodules that are unchanged on interval CT should be coded as category 2, and individuals returned to screening in 12 months. Category 4X: Category 3 or 4 nodules with additional imaging findings that increase the suspicion of lung cancer, such as spiculation, GGN that doubles in size in 1 year, enlarged lymph notes, etc. Category Modifiers: S (significant finding unrelated to lung cancer) Electronically Signed: Micky Wagner MD at 21:23 EST ,
== END | disposition home or self-care (01) ==
LOC: CT 14:02
PROVIDERS: PCP Family Medicine; Referring Provider Family Medicine; Visit Provider Family Medicine
DX: Z87.891 Personal history of nicotine dependence (principal)
CPT/HCPCS: 71271

== ENCOUNTER → 2024-11-09 | Outpatient (CLI) | payer MEDICARE, SELFPAY ==
[2024-11-09 15:40] LABS: Absolute Lymphocyte Count 2.98 X10^3/uL (0.83-4.51); Absolute Neutrophil Count 9.4 X10^3/uL (2.0-7.7); Basophil# 0.06 X10^3/uL; Basophil% 0.4 % (0-1); Eosinophil# 0.33 X10^3/uL; Eosinophils% 2.4 % (0-5); Hematocrit 39.4 % (40-54); Hemoglobin 13.1 g/dL (13.0-16.5); Lymphocyte # 2.98 X10^3/ul (0.83-4.51); Lymphocyte % 21.6 % (19-41); Mean Corp Hgb Conc 33.2 g/dL (32-36); Mean Corpuscular Hgb 31.5 pg (27.0-32.0); Mean Corpuscular Volume 94.7 fL (80-94); Monocyte# 1.02 X10^3/uL; Monocyte% 7.4 % (0-10); NRBC Flagged by Analyzer 0 % (0-5); Neutrophil # 9.37 X10^3/uL (2.7-7.7); Neutrophil % 67.9 % (47-70); Platelet Count 218 K/mm3 (150-450); RBC Distribution Width CV 14.2 % (11.6-14.6); Red Blood Count 4.16 M/mm3 (4.6-6.2); White Blood Count 13.8 K/mm3 (4.4-11.0)
[2024-11-09 16:32] LABS: ALB/GLOB Ratio 1.2 RATIO (0.9-2.4); AST(SGOT) 20 U/L (<=37); Alanine Aminotransfer ALT/SGPT 9 U/L (<=46); Albumin, Serum 3.9 g/dL (3.4-4.8); Alkaline Phosphatase 102 U/L (40-129); Anion Gap 10 (5-15); BUN 10 mg/dL (4-19); BUN/Creat Ratio 9.8 RATIO (10-20); Calcium,Total 9.2 mg/dL (7.6-11.0); Carbon Dioxide 23.9 mmol/L (21.0-32.0); Chloride 106 mmol/L (98-108); Cholesterol 108 mg/dL (<=200); EST Glomerular Filtration Rate 82 (>60); Ferritin 96 ng/mL (37-417); Globulin 3.2 g/dL (2.2-4.2); Glucose 88 mg/dL (70-99); High Density Lipoprotein 37 mg/dL; Low Density Lipoprotein Calc. 55 mg/dL; Potassium 4.4 mmol/L (3.3-5.1); Protein, Total 7.2 g/dL (5.9-8.4); Sodium Level 140 mmol/L (133-145); Total Bilirubin 0.33 mg/dL (0.00-1.30); Triglycerides 81 mg/dL; Very Low Density Lipoprotein 16 mg/dL (5-40); Vitamin B12 575 pg/mL (180-914); cholesterol:hdl ratio screen 2.96
[2024-11-09 17:13] LABS: Iron 74 ug/dL (65-175); Iron Binding Capacity,Total 330 ug/dL (250-450); Iron Binding Capacity,Unsat 256 ug/dL (228-428)
== END | disposition home or self-care (01) ==
LOC: MFPLAB 13:47
PROVIDERS: PCP Family Medicine; Referring Provider Family Medicine; Visit Provider Family Medicine
DX: I25.10 Atherosclerotic heart disease of native coronary artery without angina pectoris (principal); D64.9 Anemia, unspecified
CPT/HCPCS: 36415; 80053; 80061; 82607; 82728; 82746; 83540; 83550; 85025

== ENCOUNTER → 2024-11-17 | Outpatient (CLI) | payer MEDICARE, SELFPAY ==
[2024-11-17 12:32] LABS: Hematocrit 37.1 % (40-54); Hemoglobin 12.3 g/dL (13.0-16.5); Mean Corp Hgb Conc 33.2 g/dL (32-36); Mean Corpuscular Hgb 31.3 pg (27.0-32.0); Mean Corpuscular Volume 94.4 fL (80-94); Mean Platelet Vol. 11.7 fl (6.2-12.0); Platelet Count 198 K/mm3 (150-450); RBC Distribution Width CV 14.2 % (11.6-14.6); RBC Distribution Width SD 49.1 fl (35.1-43.9); Red Blood Count 3.93 M/mm3 (4.6-6.2); White Blood Count 13.8 K/mm3 (4.4-11.0)
== END | disposition home or self-care (01) ==
LOC: MFPLAB 09:48
PROVIDERS: PCP Family Medicine; Referring Provider Family Medicine; Visit Provider Family Medicine
DX: D72.829 Elevated white blood cell count, unspecified (principal)
CPT/HCPCS: 36415; 85027

== ENCOUNTER → 2024-11-22 | Outpatient (CLI) | payer MEDICARE, SELFPAY ==
--- NOTE | 2024-11-22 15:49 | RAD_ITS ---
PROCEDURE: CHEST PA AND LATERAL 11/22/2024 REASON FOR EXAM: SOB, ABNORMAL LUNG EXAM TECHNIQUE: Frontal and lateral views of the chest. COMPARISON: Low-dose CT examination of the chest dated 06/04/2024 FINDINGS: Hardware: A radiopaque pacemaker device is identified in the left pectoral region with 2 intact leads in satisfactory position. Heart: Heart size and configuration are within normal limits. Arteriosclerotic vascular disease of the aorta is noted. Mediastinum: Pulmonary vasculature and hilar structures are unremarkable. Mediastinum appears unremarkable. Lungs: There is no atelectasis, consolidation, effusion, pneumonic infiltrate, lung contusion or pneumothorax. Lungs are hyperinflated with flattening of the hemidiaphragms. There is increased lucency in the upper lung [place]. These findings are compatible with emphysematous changes. Bilateral apical pleural thickening is seen. Again noted is a 3 mm calcified granuloma in the right upper lobe laterally. There are some parenchymal scarring seen in the lower lung [place]. Bones: Degenerative changes of the lumbar spine. RAD/Chest PA and Lateral IMPRESSION: Emphysematous lung changes are noted. Bilateral apical pleural thickening. Stable calcified granuloma right lobe. Parenchymal scarring lung bases. Reading Location: [id number]
[2024-11-22 17:36] LABS: Absolute Lymphocyte Count 3.28 X10^3/uL (0.83-4.51); Absolute Neutrophil Count 6.7 X10^3/uL (2.0-7.7); Basophil# 0.07 X10^3/uL; Basophil% 0.6 % (0-1); Eosinophil# 0.46 X10^3/uL; Eosinophils% 3.9 % (0-5); Hematocrit 37.6 % (40-54); Hemoglobin 12.5 g/dL (13.0-16.5); Lymphocyte # 3.28 X10^3/ul (0.83-4.51); Mean Corp Hgb Conc 33.2 g/dL (32-36); Mean Corpuscular Volume 93.3 fL (80-94); Mean Platelet Vol. 11.3 fl (6.2-12.0); Monocyte% 10.3 % (0-10); NRBC Flagged by Analyzer 0 % (0-5); Neutrophil # 6.65 X10^3/uL (2.7-7.7); Neutrophil % 56.9 % (47-70); Platelet Count 206 K/mm3 (150-450); RBC Distribution Width CV 14.3 % (11.6-14.6); Red Blood Count 4.03 M/mm3 (4.6-6.2); White Blood Count 11.7 K/mm3 (4.4-11.0)
[2024-11-22 18:12] LABS: Anion Gap 11 (5-15); BUN 12 mg/dL (4-19); BUN/Creat Ratio 9.2 RATIO (10-20); Carbon Dioxide 25.4 mmol/L (21.0-32.0); Chloride 104 mmol/L (98-108); EST Glomerular Filtration Rate 60 (>60); Glucose 88 mg/dL (70-99); Potassium 4.5 mmol/L (3.3-5.1); Pro- Brain NATRIURETIC PEPTIDE 227 pg/mL (<=900); Sodium Level 140 mmol/L (133-145)
== END | disposition home or self-care (01) ==
LOC: RAD 15:44
PROVIDERS: PCP Family Medicine; Referring Provider Nurse Practitioner Family; Visit Provider Nurse Practitioner Family
DX: R06.00 Dyspnea, unspecified (principal); I25.5 Ischemic cardiomyopathy; Z95.5 Presence of coronary angioplasty implant and graft; I10 Essential (primary) hypertension; Z95.810 Presence of automatic (implantable) cardiac defibrillator
CPT/HCPCS: 36415; 71046; 80048; 83880; 85025

== ENCOUNTER → 2024-12-20 | Outpatient (CLI) | payer MEDICARE, SELFPAY ==
--- NOTE | 2024-12-20 09:02 | ECHOD_ITS ---
Reason For Study : HTN Procedure This was a 2D Doppler, Color Flow transthoracic echocardiogram. Exam performed in department. Left Ventricle Normal LV size. Left ventricular systolic function is normal. The left ventricular ejection fraction is 60 %. No regional wall motion abnormalities noted. Right Ventricle Normal RV size. ICD or pacer leads identified within the right ventricle. Normal systolic function. Atria Normal left atrium. Normal right atrium. Mitral Valve Normal mitral valve. Tricuspid Valve Normal tricuspid valve. Mild (1+) tricuspid valve insufficiency. Pulmonary artery systolic pressure is 32 mmHg. Aortic Valve Trisinus/trileaflet aortic valve. Mild focal aortic valve calcification. Great Vessels Normal aortic root. The pulmonary artery is normal size. Inferior vena cava collapse with respiration. Pericardium/Pleural No pericardial effusion. MMode/2D Measurements & Calculations LVIDd: 4.3 cm IVSd: 0.96 cm Ao root diam: 2.6 cm LVIDs: 2.8 cm LVPWd: 1.1 cm RVDd: 3.0 cm FS: 35.7 % LAV(MOD-bp): 38.3 ml LVAd ap4: 22.2 cm2 SV(MOD-sp4): 33.9 ml LAV(MOD-bp) Indexed: 23.3 ml/m2 LVLd ap4: 7.6 cm SI(MOD-sp4): 20.7 ml/m2 LAV(MOD-sp2): 41.6 ml EDV(MOD-sp4): 56.3 ml LAV(MOD-sp4): 31.9 ml EDV(sp4-el): 55.1 ml LVAs ap4: 13.2 cm2 LVLs ap4: 6.6 cm ESV(MOD-sp4): 22.3 ml ESV(sp4-el): 22.3 ml EF(MOD-sp4): 60.3 % EF(sp4-el): 59.5 % SV(sp4-el): 32.8 ml LA dimension(2D): 3.1 cm LA A4 area: 13.7 cm2 RA A4 area: 15.3 cm2 Time Measurements MV dec time: 0.19 sec Doppler Measurements & Calculations MV E max ans: 71.9 cm/sec Lat Peak E' Nas: 9.8 cm/sec Med Peak E' Nas: 7.1 cm/sec MV A max nas: 76.3 cm/sec E/E' lat: 7.3 E/E' med: 10.1 MV E/A: 0.94 MV V2 max: 77.9 cm/sec Ao V2 max: 159.7 cm/sec MV max P.4 mmHg MV dec slope: 382.4 cm/sec2 Ao max P.2 mmHg MV V2 mean: 49.9 cm/sec Ao V2 mean: 107.2 cm/sec MV mean P.1 mmHg Ao mean P.3 mmHg MV V2 VTI: 30.4 cm Ao V2 VTI: 37.5 cm AV (velocity ratio): 0.79 LV V1 max: 126.3 cm/sec TR max nas: 270.1 cm/sec LV V1 max P.4 mmHg TR max P.2 mmHg LV V1 mean P.7 mmHg LV V1 mean: 90.9 cm/sec LV V1 VTI: 29.4 cm ECHO/Echo Complete Interpretation Summary Normal LV size. Left ventricular systolic function is normal. The left ventricular ejection fraction is 60 %. Mild focal aortic valve calcification. Ordering Physician: Dylan Cardoza Referring Physician: Dylan Cardoza Performed By: Jenny Montes and Student
== END | disposition home or self-care (01) ==
PROVIDERS: PCP Family Medicine; Referring Provider Family Medicine; Visit Provider Family Medicine
DX: I27.20 Pulmonary hypertension, unspecified (principal)
CPT/HCPCS: 93306

== ENCOUNTER → 2025-05-12 | Outpatient (CLI) | payer MEDICARE, SELFPAY ==
[2025-05-12 18:31] LABS: PSA,Total - Annual Screen 2.85 ng/mL (0.02-4.00)
--- OUTSIDE RECORDS SUMMARY | 2025-05-12 19:08 | XMS RPT_ITS | CCD ---
Author Organization [facility] Care Team Providers Care Network Architect Manager Name Role Phone Linda Solano Unavailable Unavailable MD Avila Cyril S Unavailable Linda Solano Unavailable Unavailable Dr. Dylan Cardoza Primary Care Provider [phone] Dr. Dylan Cardoza Referring Provider Marli Bhatia Attending Provider Unavailable Dr. Dylan Cardoza Primary Care Provider [phone] Dr. Archie Avila Attending Provider [phone] Archie Avila Referring Provider [phone] Dylan Cardoza Referring Provider Vincenzo ROSALES, MANAGER SCHEDULING-C Jacqui Attending Provider Dylan Cardoza MD Primary Care Provider Dr. Dylan Cardoza Primary Care Provider [phone] Dr. Archie Avila Attending Provider [phone] Archie Avila Referring Provider [phone] Dylan Cardoza MD Primary Care Provider [phone] Dr. Archie Avila MD Attending Provider Dr. Dylan Cardoza MD Attending Provider [phone] Dr. Dylan Cardoza MD Referring Provider Jace ROSALES-Dylan Albrecht Attending Provider Jace ROSALES-Dylan Albrecht Referring Provider Dylan Cardoza Primary Care Unavailable Dylan Mccormick NP Attending Unavailable Dylan Cardoza Referring Unavailable Dylan Cardoza Primary Care Unavailable Dylan Cardoza Attending Unavailable Dylan Cardoza Primary Care Unavailable Dylan Cardoza Attending Unavailable Dylan Cardoza Referring Unavailable Dylan Cardoza Primary Care Unavailable Dylan Cardoza Attending Unavailable Dylan Cardoza Referring Unavailable Dylan Cardoza Primary Care Unavailable Dylan Cardoza Attending Unavailable Dylan Cardoza Referring Unavailable Dylan Cardoza Primary Care Unavailable Dylan Cardoza Attending Unavailable Dylan Cardoza Referring Unavailable Dylan Cardoza Primary Care Unavailable Roof MANAGER SCHEDULING, Dylan Mendez Attending Unavailable Roof MANAGER SCHEDULING, Dylan Mendez Referring Unavailable Dylan Cardoza Primary Care Unavailable AustinArchie azevedo Attending Unavailable Dylan Cardoza Primary Care Unavailable Austni Ogden Attending Unavailable Austin, Ogden Referring Unavailable Austin, Archie Attending Unavailable Dylan Cardoza Referring Unavailable Dylan Cardoza Primary Care Unavailable Austin, Ogden Attending Unavailable Dylan Cardoza Primary Care Unavailable Austin, Ogden Attending Unavailable Dylan Cardoza Primary Care Unavailable Medications Current Medications Medication Drug Class(es) Dates Sig (Normalized) Sig (Original) dapagliflozin 10 mg oral tablet (5 sources) Sodium-Glucose Cotransporter 2 Inhibitor Start: 11-22-2024 take 1 tablet by mouth once daily as needed Dapagliflozin Propanediol (Farxiga) 10 mg tablet Active 10 mg PO DAILY as needed for SOB 30 0 November 22, 2024 12:00am Completed/Discontinued Medications Medication Drug Class(es) Dates Sig (Normalized) Sig (Original) aspirin 325 mg oral tablet (20 sources) Platelet Aggregation Inhibitor, Nonsteroidal Anti-inflammatory Drug Start: 10-28-2010 End: 02-27-2021 take 1 tablet by mouth once daily Aspirin 325 mg tablet Discontinued 325 mg PO DAILY@0800 90 3 February 15, 2021 9:54am February 27, 2021 8:09am Comment on above: Take 1 tablet by darryl th once daily. atorvastatin 80 mg oral tablet (20 sources) HMG-CoA Reductase Inhibitor Start: 10-28-2010 End: 07-04-2024 take 1 tablet by mouth at bedtime Atorvastatin 80 mg tablet Discontinued 80 mg PO AT BEDTIME 90 3 April 19, 2024 10:26am July 04, 2024 1:23pm Comment on above: Take 1 tablet by darryl th daily at bedtime. carvedilol 25 mg oral tablet (20 sources) alpha-Adrenergic [place], beta-Adrenergic [place] Start: 12-12-2010 End: 07-04-2024 take 1 tablet by mouth twice daily Carvedilol 25 mg tablet Discontinued 25 mg PO TWICE A DAY 180 September 01, 2023 10:33am July 04, 2024 1:23pm Comment on above: Take 25 mg by mouth twice daily with meals. clopidogrel 75 mg oral tablet (20 sources) P2Y12 Platelet Inhibitor Start: 10-28-2010 End: 07-04-2024 take 1 tablet by mouth once daily Clopidogrel 75 mg tablet Discontinued 75 mg PO DAILY 90 February 04, 2024 10:35am July 04, 2024 1:23pm Comment on above: Take 1 tablet by darryl th once daily. furosemide 40 mg oral tablet (20 sources) Loop Diuretic Start: 07-30-2023 End: 11-22-2024 take 1 tablet by mouth once daily as needed for edema Furosemide (Lasix) 40 mg tablet Discontinued 40 mg PO DAILY as needed for edema 90 March 01, 2024 9:38am November 22, 2024 2:55pm lisinopril 10 mg oral tablet (20 sources) Angiotensin Converting Enzyme Inhibitor Start: 10-28-2010 End: 07-04-2024 take 1 tablet by mouth once daily Lisinopril 10 mg tablet Discontinued 10 mg PO DAILY 90 April 19, 2024 10:27am July 04, 2024 1:23pm Comment on above: Take 1 tablet by darryl th once daily. nitroglycerin 0.4 mg sublingual tablet (20 sources) Nitrate Vasodilator Start: 08-23-2014 End: 01-29-2021 Nitroglycerin Active 0.4 MG SL Q5M January 29, 2021 10:23am Start: 08-21-2012 NITROSTAT 0.4 MG SUBL 1 tablet under tongue every 5 min up to 3 X NITROGLYCERIN [id number] Regina Soto PA-C Start: 12-12-2010 NITROGLYCERIN 0.4 MG/HR PT24 1 tablet under tongue every 5 min up to 3 X NITROGLYCERIN [id number] Archie Avila MD Start: 10-28-2010 End: 03-01-2024 Nitroglycerin 0.4 MG tablet Discontinued 0.4 mg SL Q5M as needed for Chest Pain August 23, 2014 1:00am January 29, 2021 10:23am Comment on above: Dissolve 1 tablet un roopa the tongue as needed for Chest Pain. pantoprazole 40 mg delayed release oral tablet (13 sources) Proton Pump Inhibitor Start: 5 End: 0 take 1 tablet by mouth once daily Pantoprazole 40 MG tablet Discontinued 40 mg PO DAILY August 23, 2014 1:00am December 28, 2019 9:45am Comment on above: Take 40 mg by mouth once daily. 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 with unspecified severity] Onset: 1 Chronic Conduction disorders (20 sources) Left bundle branch hemiblock; Translations: [Cardiac defibrillator in situ] Onset: 1 12-12-2010 Chronic Coronary atherosclerosis and other heart disease (20 sources) Coronary arteriosclerosis; Translations: [Coronary atherosclerosis] Onset: 1 Resolved: 6 08-21-2012 Chronic Diseases of white blood cells (2 sources) Leukocytosis; Translations: [Elevated white blood cell count, unspecified] Onset: 1 Chronic Disorders of lipid metabolism (3 sources) Hyperlipidemia; Translations: [Hyperlipidemia, unspecified] Onset: 3 08-31-2012 Chronic Esophageal disorders (1 source) Esophagitis; Translations: [Esophagitis, unspecified] 08-23-2014 Episodic Essential hypertension (20 sources) Essential hypertension; Translations: [Essential (primary) hypertension] Onset: 5 02-04-2020 Chronic Gastrointestinal hemorrhage (1 source) Gastrointestinal hemorrhage; Translations: [Gastrointestinal hemorrhage, unspecified] 08-23-2014 Episodic Other and unspecified benign neoplasm (12 sources) History of polyp of colon; Translations: [Personal history of colonic polyps] 12-28-2019 Episodic Other and unspecified benign neoplasm (1 source) Benign neoplasm of colon; Translations: [Benign neoplasm of colon, unspecified] 08-23-2014 Episodic Other gastrointestinal disorders (1 source) Heartburn; Translations: [Heartburn] 08-11-2014 Episodic Other gastrointestinal disorders (1 source) Occult blood in stools; Translations: [Other fecal abnormalities] 08-23-2014 Episodic Other lower respiratory disease (17 sources) Dyspnea; Translations: [Dyspnea, unspecified] 02-04-2020 Episodic Kathy-; endo-; and myocarditis; cardiomyopathy (except that caused by tuberculosis or sexually transmitted disease) (1 source) Cardiomyopathy; Translations: [Cardiomyopathy, unspecified] Onset: 1 Chronic Peripheral and visceral atherosclerosis (12 sources) Peripheral vascular disease; Translations: [Peripheral vascular disease, unspecified] 02-04-2020 Chronic Comment on above: angioplasty and sten ting LCIA 10/29/2010 Pulmonary heart disease (1 source) Pulmonary hypertension, unspecified; Translations: [Pulmonary hypertension, unspecified] Onset: 5 Chronic Substance-related disorders (12 sources) Nicotine dependence; Translations: [Nicotine dependence, unspecified, uncomplicated] 02-04-2020 Chronic Unclassified (2 sources) Implantation of automatic cardiac defibrillator ; Translations: [Presence of automatic (implantable) cardiac defibrillator] Onset: 1 12-12-2010 Unclassified (2 sources) Long-term drug therapy; Translations: [Other terminologist (current) drug therapy] Onset: 3 07-19-2015 Unclassified (1 source) SUMMARY Onset: 1 Unclassified (1 source) Elevated blood pressure; Translations: [Elevated blood pressure] Onset: 1 Past or Other Problems Problem Classification Problem Date Documented Da te Episodic/Chronic Acute and unspecified renal failure (1 source) Acute renal failure syndrome; Translations: [Acute kidney failure, unspecified] Onset: 10-23-2010 Episodic Coronary atherosclerosis and other heart disease (7 sources) Coronary angioplasty status; Translations: [Presence of coronary angioplasty implant and graft] Onset: 10-29-2010 12-12-2010 Episodic Deficiency and other anemia (1 source) Anemia; Translations: [Anemia, unspecified] Onset: 10-08-2010 Episodic Other aftercare (4 sources) Long-term (current) use of other medications; Translations: [Other skilled nursing (current) drug therapy] Onset: 08-31-2012 08-31-2012 Episodic Other gastrointestinal disorders (1 source) Swollen abdomen; Translations: [Abdominal distension (gaseous)] Onset: 10-14-2010 06-18-2021 Episodic Other lower respiratory disease (4 sources) Dyspnea, unspecified; Translations: [Other respiratory abnormalities] Onset: 11-29-2024 08-29-2023 Episodic Other nutritional; endocrine; and metabolic disorders (3 sources) Body mass index (BMI) 25.0-25.9, adult; Translations: [Body mass index (BMI) 25.0-25.9, adult] Onset: 10-25-2014 10-25-2014 Episodic Other screening for suspected conditions (not mental disorders or infectious disease) (1 source) Encounter for screening for malignant neoplasm of prostate; Translations: [Encounter for screening for malignant neoplasm of prostate] Onset: 06-10-2024 Episodic Pneumonia (except that caused by tuberculosis or sexually transmitted disease) (1 source) Pneumonia; Translations: [Pneumonia, unspecified organism] Onset: 10-08-2010 Episodic Residual codes; unclassified (3 sources) FH: Hypertension; Translations: [Family history of ischemic heart disease and other diseases of the circulatory system] 10-25-2014 Episodic Screening and history of mental health and substance abuse codes (1 source) Personal history of nicotine dependence; Translations: [Personal history of nicotine dependence] Onset: 07-08-2024 Episodic Shock (3 sources) Cardiogenic shock; Translations: [Cardiogenic shock] Onset: 12-12-2010 12-12-2010 Episodic Results Test Name Value Interpretation Reference Range Facility Cardiology Visit Reporton Cardiology Visit Report [facility] [address] [place] [address] OFFICE VISIT Date of Service: 04/21/25 MR#: [id number] Acct: [id number] Name: CARA FONTENOT Rep #: [id number] : 1955 Provider: Dr. Archie Avila MD Age/Sex: 70/M Location: [facility] Status: Signed HPI HPI History of Present Illness Details: This is a 70-year-old male who presents to the office today for a cardiovascular out-patient visit. He was last seen in our office in 2020. He has a history of coronary artery disease with an ostial right coronary artery stenosis. He also had a left anterior descending artery with no significant disease. He had a witnessed cardiac arrest and had an ICD placed for secondary prevention in 2010. He continues to follow-up in the device clinic. He denies chest, arm, jaw, or neck discomfort. He denies palpitations. He denies bilateral lower extremity edema. He denies claudication. He states shortness of breath with activity and shortness of breath at rest. His shortness of breath with activity is not new. His shortness of breath at rest is when he lies flat. He denies PND. He denies chronic cough. He denies significant, sudden weight gain. He denies lightheadedness, dizziness, near-syncope, or syncope. He denies blood in urine, blood in stool, or epistaxis. He denies fever with chills. He denies myalgia. He denies fatigue. His exercise level has remained stable. He states he walks daily. Intake Vital Signs 03/01/24 09:08 11/22/24 14:57 04/21/25 10:32 Height 5 ft 3 in 5 ft 3 in 5 ft 3 in Weight: 139 lb BMI 24.6 BP 139/70 H Blood Pressure Location Lt brachial Position Sitting Respiration 16 Pulse 59 L Pulse Source Monitor Intake Visit Reasons: 1 Y [employer] Manager Required: No Accompanied by: Self Is patient in pain?: No Allergies No Known Allergies Allergy (Verified 04/21/25 10:39) Medications ???Medication ???Instructions ???Recorded ???Confirmed ???Type aspirin 325 mg tablet 325 mg PO DAILY@0800 #90 tabs 09/0 01/1004/21/25 Rx nitroglycerin 0.4 mg sublingual 0.4 mg sublingual Q5M PRN Chest 04/21/25 Rx tablet Pain #25 tabs atorvastatin 80 mg tablet 80 mg PO QHS #90 TABLETS 07/04/24 04/21/25 Rx carvedilol 25 mg tablet 25 mg PO BID #180 TABLETS 07/04/24 04/21/25 Rx clopidogrel 75 mg tablet 75 mg PO DAILY #90 TABLETS 5 04/21/25 Rx lisinopril 10 mg tablet 10 mg PO DAILY #90 TABLETS 5 04/21/25 Rx dapagliflozin propanediol 10 mg 10 mg PO DAILY PRN SOB #30 tabs 04/21/25 Rx tablet (Farxiga) furosemide 40 mg tablet (Lasix) 40 mg PO DAILY PRN edema #90 tabs 11/22/24 04/21/25 Rx Ejection fraction %: 60 Have you fallen in the past year?: No PFSH Medical History Nicotine dependence Peripheral vascular occlusive disease Cardiac arrest with ventricular fibrillation (10/03/10) Essential (primary) hypertension Ischemic cardiomyopathy History of myocardial infarction Personal history of colonic polyps Surgical History History of angioplasty of peripheral vessel (10/29/10) History of left heart catheterization (10/25/10) Biventricular ICD (implantable cardioverter-defibri llator) in place (10/26/10) History of coronary artery stent placement (10/29/10) Family History Father Heart disease Social History Smoking Status: Former smoker quit date: 06/23/13 Tobacco: How many years used: 35 alcohol intake: current alcohol intake frequency: a few times a month substance use type: does not use caffeine: Yes Type: coffee Number of servings: 1 ROS Const Const: Negative for fatigue, weakness, daytime sleepiness or difficulty sleeping ENT ENT: Negative for dizziness or Nosebleed/epistaxis Cardio Chest Pain: No Palpitations: No Edema: None Resp Respiratory: Negative for SOB with activity, SOB at rest, SOB orthopnea SOB lying down or Cough GI GI: Negative nausea, vomiting or heartburn Neuro Neuro: Negative for dizziness, lightheadedness, near syncope or weakness Endo Endo: Negative for fatigue Supplemental Info Supplemental Information Echocardiogram 12/20/24 Interpretation Summary Normal LV size. Left ventricular systolic function is normal. The left ventricular ejection fraction is 60 %. Mild focal aortic valve calcification. Echocardiogram 10/01/2023: Interpretation Summary Normal LV size. Left ventricular systolic function is normal. The estimated ejection fraction is 65 %. Echogenic filamentous structure noted on the right atrial lead. Recommend further investigation. Pulmonary artery systolic p (more content not included)... Normal [facility] Echocardiogram study reportO rdered By: Archie Avila on 12-21-[address] [facility] [address] [place] [address] Echo Complete 12/20/24 0910 MR#: [id number] Acct: [id number] Name: CARA FONTENOT Rep #:[id number] : 1955 69 From: Archie Tejeda Attending Dr: Dr. Dylan Cardoza MD Status: REG CLI Ordering Dr: Dylan Cardoza MD Date: 12/20/24 [facility] Sex[facility] M C Admitted: Reason For Study : HTN Procedure This was a 2D Doppler, Color Flow transthoracic echocardiogram. Exam performed in department. Left Ventricle Normal LV size. Left ventricular systolic function is normal. The left ventricular ejection fraction is 60 %. No regional wall motion abnormalities noted. Right Ventricle Normal RV size. ICD or pacer leads identified within the right ventricle. Normalsystolic function. Atria Normal left atrium. Normal right atrium. Mitral Valve Normal mitral valve. Tricuspid Valve Normal tricuspid valve. Mild (1+) tricuspid valve insufficiency. Pulmonary artery systolic pressure is 32 mmHg. Aortic Valve Trisinus/trileaflet aortic valve. Mild focal aortic valve calcification. Great Vessels Normal aortic root. The pulmonary artery is normal size. Inferior vena cava collapse with respiration. Pericardium/Pleural No pericardial effusion. MMode/2D Measurements & Calculations LVIDd: 4.3 cm IVSd: 0.96 cm Ao root diam: 2.6 cm LVIDs: 2.8 cm LVPWd: 1.1 cm RVDd: 3.0 cm FS: 35.7 % LAV(MOD-bp): 38.3 ml LVAd ap4: 22.2 cm2 SV(MOD-sp4): 33.9 ml LAV(MOD-bp) Indexed: 23.3 ml/m2 LVLd ap4: 7.6 cm SI(MOD-sp4): 20.7 ml/m2 LAV(MOD-sp2): 41.6 ml EDV(MOD-sp4): 56.3 ml LAV(MOD-sp4): 31.9 ml EDV(sp4-el): 55.1 ml LVAs ap4: 13.2 cm2 LVLs ap4: 6.6 cm ESV(MOD-sp4): 22.3 ml ESV(sp4-el): 22.3 ml EF(MOD-sp4): 60.3 % EF(sp4-el): 59.5 % SV(sp4-el): 32.8 ml LA dimension(2D): 3.1 cm LA A4 area: 13.7 cm2 RA A4 area: 15.3 cm2 Time Measurements MV dec time: 0.19 sec Doppler Measurements & Calculations MV E max nas: 71.9 cm/sec Lat Peak E' Nas: 9.8 cm/sec Med Peak E' Nas: 7.1 cm/sec MV A max nas: 76.3 cm/sec E/E' lat: 7.3 E/E' med: 10.1 MV E/A: 0.94 MV V2 max: 77.9 cm/sec Ao V2 max: 159.7 cm/sec MV max P.4 mmHg MV dec slope: 382.4 cm/sec2 Ao max P.2 mmHg MV V2 mean: 49.9 cm/sec Ao V2 mean: 107.2 cm/sec MV mean P.1 mmHg Ao mean P.3 mmHg MV V2 VTI: 30.4 cm Ao V2 VTI: 37.5 cm AV (velocity ratio): 0.79 LV V1 max: 126.3 cm/sec TR max nas: 270.1 cm/sec LV V1 max P.4 mmHg TR max P.2 mmHg LV V1 mean P.7 mmHg LV V1 mean: 90.9 cm/sec LV V1 VTI: 29.4 cm ECHO/Echo Complete Interpretation Summary Normal LV size. Left ventricular systolic function is normal. The left ventricular ejection fraction is 60 %. Mild focal aortic valve calcification. Ordering Physician: Dylan Cardoza Referring Physician: Dylan Cardoza Performed By: Jenny Montes and Student 12/21/24 1325 Date _ Archie Avila MD CC: Dr. Dylan Cardoza MD ~ Date Dictated: 12/20/24909 Date Transcribed: 12/21/241324 Osha Inspector: Signed [facility] Work Phone: Echo Completeon 12-20-2024 Echo Complete [facility] [address] [place] [address] Echo Complete 12/20/24909 MR#: [id number] Acct: [id number] Name: CARA FONTENOT Rep #: [id number] : 1955 69 From: Archie Avila MD Attending Dr: Dr. Dylan Cardoza MD Status: [facility] Ordering Dr: Dylan Cardoza MD Date: 12/20/24 [facility] Sex: M C Admitted: Reason For Study : HTN Procedure This was a 2D Doppler, Color Flow transthoracic echocardiogram. Exam performed in department. Left Ventricle Normal LV size. Left ventricular systolic function is normal. The left ventricular ejection fraction is 60 %. No regional wall motion abnormalities noted. Right Ventricle Normal RV size. ICD or pacer leads identified within the right ventricle. Normal systolic function. Atria Normal left atrium. Normal right atrium. Mitral Valve Normal mitral valve. Tricuspid Valve Normal tricuspid valve. Mild (1+) tricuspid valve insufficiency. Pulmonary artery systolic pressure is 32 mmHg. Aortic Valve Trisinus/trileaflet aortic valve. Mild focal aortic valve calcification. Great Vessels Normal aortic root. The pulmonary artery is normal size. Inferior vena cava collapse with respiration. Pericardium/Pleural No pericardial effusion. MMode/2D Measurements Calculations LVIDd: 4.3 cm IVSd: 0.96 cm Ao root diam: 2.6 cm LVIDs: 2.8 cm LVPWd: 1.1 cm RVDd: 3.0 cm FS: 35.7 % LAV(MOD-bp): 38.3 ml LVAd ap4: 22.2 cm2 SV(MOD-sp4): 33.9 ml LAV(MOD-bp) Indexed: 23.3 ml/m2 LVLd ap4: 7.6 cm SI(MOD-sp4): 20.7 ml/m2 LAV(MOD-sp2): 41.6 ml EDV(MOD-sp4): 56.3 ml LAV(MOD-sp4): 31.9 ml EDV(sp4-el): 55.1 ml LVAs ap4: 13.2 cm2 LVLs ap4: 6.6 cm ESV(MOD-sp4): 22.3 ml ESV(sp4-el): 22.3 ml EF(MOD-sp4): 60.3 % EF(sp4-el): 59.5 % SV(sp4-el): 32.8 ml LA dimension(2D): 3.1 cm LA A4 area: 13.7 cm2 RA A4 area: 15.3 cm2 Time Measurements MV dec time: 0.19 sec Doppler Measurements Calculations MV E max nas: 71.9 cm/sec Lat Peak E' Nas: 9.8 cm/sec Med Peak E' Nas: 7.1 cm/sec MV A max nas: 76.3 cm/sec E/E' lat: 7.3 E/E' med: 10.1 MV E/A: 0.94 MV V2 max: 77.9 cm/sec Ao V2 max: 159.7 cm/sec MV max P.4 mmHg MV dec slope: 382.4 cm/sec2 Ao max P.2 mmHg MV V2 mean: 49.9 cm/sec Ao V2 mean: 107.2 cm/sec MV mean P.1 mmHg Ao mean P.3 mmHg MV V2 VTI: 30.4 cm Ao V2 VTI: 37.5 cm AV (velocity ratio): 0.79 LV V1 max: 126.3 cm/sec TR max nas: 270.1 cm/sec LV V1 max P.4 mmHg TR max P.2 mmHg LV V1 mean P.7 mmHg LV V1 mean: 90.9 cm/sec LV V1 VTI: 29.4 cm ECHO/Echo Complete Interpretation Summary Normal LV size. Left ventricular systolic function is normal. The left ventricular ejection fraction is 60 %. Mild focal aortic valve calcification. Ordering Physician: Dylan Cardoza Referring Physician: Dylan Cardoza Performed By: Jenny Montes and Student 12/21/24 1325 Date Archie Avila MD CC: Dr. Dylan Cardoza MD Date Dictated: 12/20/24909 Date Transcribed: 12/21/241324 Osha Inspector: Signed Normal [facility] Absolute lymphocyte countOrd ered By: Dylan Mccormick on 11-22-2024 Lymphocytes Auto (Unsp spec) [#/Vol] 3.28 10*3/uL 0.83-4.51 [facility] Absolute neutrophil countOrd ered By: Dylan Mccormick on 11-22-2024 Neutrophils (Bld) [#/Vol] 6.7 10*3/uL 2.0-7.7 [facility] Anion gap in Serum or Plasma Ordered By: Dylan Mccormick on 11-22-2024 Anion gap [Moles/Vol] 11 mmol/L 5-15 [facility] Automated lymphocyte count a s percentage of total leukocytesOrdered By: Dylan Mccormick on 11-22-2024 Lymphocytes/100 WBC Auto (Unsp spec) 28.0 % 19-41 [facility] BUN/creatinine ratioOrdered By: Dylan Mccormick on 11-22-2024 Urea nitrogen/Creatinine [Mass ratio] 9.2 mg/mg Low 10-20 [facility] Basic Metabolic Profile (BMP )on 11-22-2024 BUN/CRE 9.2 RATIO Low 10-20 [facility] Comment on above: Performed By: #### L [id number], L500.2500, L100.0100 #### [facility] [address] [place], [address] Calcium [Mass/Vol] 9.0 mg/dL Normal 7.6-11.0 [facility] Comment on above: Performed By: #### L [id number], L500.2500, L100.0100 #### [facility] [address] [place], [address] Chloride [Moles/Vol] 104 mmol/L Normal 98-108 [facility] Comment on above: Performed By: #### L [id number], L500.2500, L100.0100 #### [facility] [address] [place], [address] CO2 [Moles/Vol] 25.4 mmol/L Normal 21.0-32.0 [facility] Comment on above: Performed By: #### L [id number], L500.2500, L100.0100 #### [facility] [address] [place], [address] Creatinine [Mass/Vol] 1.30 mg/dL High 0.70-1.20 [facility] Comment on above: Performed By: #### L [id number], L500.2500, L100.0100 #### [facility] [address] [place], [address] GAP 11 Normal 5-15 [facility] Comment on above: Performed By: #### L [id number], L500.2500, L100.0100 #### [facility] [address] [place], [address] GFR/1.73 sq M.predicted among non-blacks MDRD (S/P/Bld) [Vol rate/Area] 60 mL/min/{1.73_m2} Normal >60 [facility] Comment on above: Result Comment: mL/m in/1.73m2 CKD-EPI Creatinine Equation (2020) Performed By: #### L 503.7505, L500.2500, L100.0100 #### [facility] [address] [place], [address] Glucose [Mass/Vol] 88 mg/dL Normal 70-99 [facility] Comment on above: Performed By: #### L 503.7505, L500.2500, L100.0100 #### [facility] [address] [place], [address] Potassium [Moles/Vol] 4.5 mmol/L Normal 3.3-5.1 [facility] Comment on above: Performed By: #### L 503.7505, L500.2500, L100.0100 #### [facility] [address] [place], [address] Sodium [Moles/Vol] 140 mmol/L Normal 133-145 [facility] Comment on above: Performed By: #### L 503.7505, L500.2500, L100.0100 #### [facility] [address] [place], [address] Urea nitrogen [Mass/Vol] 12 mg/dL Normal 4-19 [facility] Comment on above: Performed By: #### L 503.7505, L500.2500, L100.0100 #### [facility] [address] [place], [address] Basophil percentageOrdered B y: Dylan Mccormick on 11-22-2024 Basophils/100 WBC (Bld) 0.6 % 0-1 [facility] CBC W/Diff, Automatedon 06-0 2-2024 Absolute Lymph 3.28 X10 3/uL Normal 0.83-4.51 [facility] Comment on above: Performed By: #### L 503.7505, L500.2500, L100.0100 #### [facility] [address] [place], [address] Absolute Neut 6.7 X10 3/uL Normal 2.0-7.7 [facility] Comment on above: Performed By: #### L 503.7505, L500.2500, L100.0100 #### [facility] [address] [place], [address] Basophils/100 WBC (Bld) 0.6 % Normal 0-1 [facility] Comment on above: Performed By: #### L 503.7505, L500.2500, L100.0100 #### [facility] [address] [place], [address] Eosinophils/100 WBC (Bld) 3.9 % Normal 0-5 [facility] Comment on above: Performed By: #### L 503.7505, L500.2500, L100.0100 #### [facility] [address] [place], [address] Erythrocyte distribution width (RBC) [Ratio] 14.3 % Normal 11.6-14.6 [facility] Comment on above: Performed By: #### L 503.7505, L500.2500, L100.0100 #### [facility] [address] [place], [address] Hematocrit (Bld) [Volume fraction] 37.6 % Low 40-54 [facility] Comment on above: Performed By: #### L 503.7505, L500.2500, L100.0100 #### [facility] [address] [place], [address] Hemoglobin (Bld) [Mass/Vol] 12.5 g/dL Low 13.0-16.5 [facility] Comment on above: Performed By: #### L 503.7505, L500.2500, L100.0100 #### [facility] [address] [place], [address] IG% 0.300 Normal 0.0-0.9 [facility] Comment on above: Result Comment: IG% - Immature Granulocytes (promyelocytes, myelocytes and metamyelocytes) > 1% indicates that a LEFT SHIFT is Present. Performed By: #### L 503.7505, L500.2500, L100.0100 #### [facility] [address] [place], [address] Lymphocytes/100 WBC (Bld) 28.0 % Normal 19-41 [facility] Comment on above: Performed By: #### L 503.7505, L500.2500, L100.0100 #### [facility] [address] [place], [address] MCH (RBC) [Entitic mass] 31.0 pg Normal 27.0-32.0 [facility] Comment on above: Performed By: #### L 503.7505, L500.2500, L100.0100 #### [facility] [address] [place], [address] MCHC (RBC) [Mass/Vol] 33.2 g/dL Normal 32-36 [facility] Comment on above: Performed By: #### L 503.7505, L500.2500, L100.0100 #### [facility] [address] [place], [address] MCV (RBC) [Entitic vol] 93.3 fL Normal 80-94 [facility] Comment on above: Performed By: #### L 503.7505, L500.2500, L100.0100 #### [facility] [address] [place], [address] Monocytes/100 WBC (Bld) 10.3 % High 0-10 [facility] Comment on above: Performed By: #### L 503.7505, L500.2500, L100.0100 #### [facility] [address] [place], [address] Neutrophils/100 WBC (Bld) 56.9 % Normal 47-70 [facility] Comment on above: Performed By: #### L 503.7505, L500.2500, L100.0100 #### [facility] [address] [place], [address] Nucleated RBC (Bld) [#/Vol] 0 10*3/uL Normal 0-5 [facility] Comment on above: Performed By: #### L 503.7505, L500.2500, L100.0100 #### [facility] [address] [place], [address] Platelet mean volume (Bld) [Entitic vol] 11.3 fL Normal 6.2-12.0 [facility] Comment on above: Performed By: #### L 503.7505, L500.2500, L100.0100 #### [facility] [address] [place], [address] Platelets (Bld) [#/Vol] 206 10*3/uL Normal 150-450 [facility] Comment on above: Performed By: #### L 503.7505, L500.2500, L100.0100 #### [facility] [address] [place], [address] RBC (Bld) [#/Vol] 4.03 10*6/uL Low 4.6-6.2 [facility] Comment on above: Performed By: #### L 503.7505, L500.2500, L100.0100 #### [facility] [address] [place], [address] RDW SD 49.0 fl High 35.1-43.9 [facility] Comment on above: Performed By: #### L 503.7505, L500.2500, L100.0100 #### [facility] [address] [place], [address] WBC (Bld) [#/Vol] 11.7 10*3/uL High 4.4-11.0 [facility] Comment on above: Performed By: #### L 503.7505, L500.2500, L100.0100 #### [facility] [address] [place], [address] Carbon dioxide, total [Moles /volume] in Central venous bloodOrdered By: Dylan Mccormick on 11-22-2024 CO2 [Moles/Vol] 25.4 mmol/L 21.0-32.0 [facility] Cardiology Visit Reporton Cardiology Visit Report [facility] [address] [place], [place] [address] OFFICE VISIT Date of Service: 11/22/24 MR#: [id number] Acct: [id number] Name: CARA FONTENOT Rep #: [id number] : 1955 Provider: DILAN flores Age/Sex: 69/M [place] [facility] [place] Signed HPI HPI History of Present Illness Details: This is a 69-year-old male who presents to the office today for a cardiovascular out-patient visit. He was last seen in our office in 2020. He has a history of coronary artery disease with an ostial right coronary artery stenosis. He also had a left anterior descending artery with no significant disease. He had a witnessed cardiac arrest and had an ICD placed for secondary prevention in 2010. He denies chest, arm, jaw, or neck discomfort. He denies palpitations. He denies bilateral lower extremity edema. He denies claudication. He states shortness of breath with activity and shortness of breath at rest. His shortness of breath with activity is not new. His shortness of breath at rest is when he lies flat. He denies PND. He denies chronic cough. He denies significant, sudden weight gain. He denies lightheadedness, dizziness, near-syncope, or syncope. He denies blood in urine, blood in stool, or epistaxis. He denies fever with chills. He denies myalgia. He denies fatigue. His exercise level has remained stable. He states he walks daily. 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 Is patient in pain?: No Allergies No Known Allergies Allergy (Verified 11/22/24 14:54) Medications ???Medication ???Instructions ???Recorded ???Confirmed ???Type aspirin 325 mg tablet 325 mg PO DAILY@0800 #90 tabs 01/1011/22/24 Rx nitroglycerin 0.4 mg sublingual 0.4 mg sublingual Q5M PRN Chest 11/22/24 Rx tablet Pain #25 tabs atorvastatin 80 mg tablet 80 mg PO QHS #90 TABLETS 07/04/24 11/22/24 Rx carvedilol 25 mg tablet 25 mg PO BID #180 TABLETS 07/04/24 11/22/24 Rx clopidogrel 75 mg tablet 75 mg PO DAILY #90 TABLETS 5 11/22/24 Rx lisinopril 10 mg tablet 10 mg PO DAILY #90 TABLETS 5 11/22/24 Rx dapagliflozin propanediol 10 mg 10 mg PO DAILY PRN SOB #30 tabs 11/22/24 Rx tablet (Farxiga) furosemide 40 mg tablet (Lasix) 40 mg PO DAILY PRN edema #90 tabs 11/22/24 11/22/24 Rx Have you fallen in the past year?: No [facility] Medical History Nicotine dependence Peripheral vascular occlusive disease Cardiac arrest with ventricular fibrillation (10/03/10) Essential (primary) hypertension Ischemic cardiomyopathy History of myocardial infarction Personal history of colonic polyps Surgical History History of angioplasty of peripheral vessel (10/29/10) History of left heart catheterization (10/25/10) Biventricular ICD (implantable cardioverter-defibri llator) in place (10/26/10) History of coronary artery stent placement (10/29/10) Family History Father Heart disease Social History (Updated 03/01/24 @ 09:14 by Xena Cagle) Smoking Status: Former smoker quit date: 06/23/13 Tobacco: How many years used: 35 alcohol intake: current alcohol intake frequency: a few times a month substance use type: does not use caffeine: Yes Type: coffee Number of servings: 1 ROS Const Const: Negative for fatigue, weakness, headache(s) or frequent falls Eyes Eyes: Negative for blurry vision ENT ENT: Negative for headache(s), dizziness or Nosebleed/epistaxis Cardio Chest Pain: No Palpitations: No Edema: None Muscle aches with walking: None Resp Respiratory: Positive for SOB with activity and SOB at rest; Negative for SOB orthopnea SOB lying down GI GI: Negative nausea, vomiting, heartburn, bright, red blood in stools or black,tarry stools : Negative for hematuria Musc Musc: Negative for muscle aches/ myalgia Skin Skin: Negative non-healing lesions or rash Neuro Neuro: Negative for dizziness, lightheadedness, near syncope, syncope, frequent falls, headache(s), weakness or blurry vision Endo Endo: Negative for fatigue Allergy Allergy/Immunology: Negative for rash Cardiology Exam Const Appearance: cooperative, healthy appearing, comfortable and no acute distress Nutritional Appearance: average body habitus and well nourished Orientation: alert, awake and oriented x3 Head Head: normal to inspection Ears: hearing grossly n (more content not included)... Normal [facility] Chest PA and Lateralon 11-22 Chest PA and Lateral [facility] Imaging Services [address] [place] [address] Chest PA and Lateral MR#: [id number] Acct: [id number] Name: CARA FONTENOT Rep #: [id number] : 1955 M 69 From: Vanna Richard PCP: Dr. Dylan Cardoza MD Status: REG CLI Study: Chest PA and Lateral Date of Exam: 11/22/24 Exam# [id number] Ordering Dr: Dylan Mccormick MANAGER SCHEDULING MANAGER SCHEDULING-C PROCEDURE: CHEST PA AND LATERAL 11/22/2024 REASON FOR EXAM: SOB, ABNORMAL LUNG EXAM TECHNIQUE: Frontal and lateral views of the chest. COMPARISON: Low-dose CT examination of the chest dated 06/04/2024 FINDINGS: Hardware: A radiopaque pacemaker device is identified in the left pectoral region with 2 intact leads in satisfactory position. Heart: Heart size and configuration are within normal limits. Arteriosclerotic vascular disease of the aorta is noted. Mediastinum: Pulmonary vasculature and hilar structures are unremarkable. Mediastinum appears unremarkable. Lungs: There is no atelectasis, consolidation, effusion, pneumonic infiltrate, lung contusion or pneumothorax. Lungs are hyperinflated with flattening of the hemidiaphragms. There is increased lucency in the upper lung [place]. These findings are compatible with emphysematous changes. Bilateral apical pleural thickening is seen. Again noted is a 3 mm calcified granuloma in the right upper lobe laterally. There are some parenchymal scarring seen in the lower lung [place]. Bones: Degenerative changes of the lumbar spine. RAD/Chest PA and Lateral IMPRESSION: Emphysematous lung changes are noted. Bilateral apical pleural thickening. Stable calcified granuloma right lobe. Parenchymal scarring lung bases. Reading Location: [facility] CC: MANAGER SCHEDULING-C Dylan Mccormick; Dr. Dylan Cardoza MD Osha Inspector: Signed Normal [facility] Chloride assayOrdered By: Eileen Mccormick on 11-22-2024 Chloride [Moles/Vol] 104 mmol/L 98-108 [facility] Eosinophil percentageOrdered By: Dylan Mccormick on 11-22-2024 Eosinophils/100 WBC (Bld) 3.9 % 0-5 [facility] Erythrocyte distribution wid th ratioOrdered By: Dylan Mccormick on 11-22-2024 Erythrocyte distribution width (RBC) [Ratio] 14.3 % 11.6-14.6 [facility] Erythrocyte distribution wid th standard deviationOrdered By: Dylan Mccormick on 11-22-2024 Erythrocyte distribution width (RBC) [Ratio] 49.0 fl High 35.1-43.9 [facility] Glomerular filtration rate ( GFR) estimation/1.73 sq m using serum, plasma, or whole bOrdered By: Dylan Mccormick on 11-22-2024 GFR/1.73 sq M.predicted among non-blacks MDRD (S/P/Bld) [Vol rate/Area] 60 mL/min/{1.73_m2} >60 [facility] Comment on above: mL/min/1.73m2 CKD-EP I Creatinine Equation (2020) Hematocrit Auto (Bld) [Volum e fraction]Ordered By: Dylan Mccormick on 11-22-2024 Hematocrit (Bld) [Volume fraction] 37.6 % Low 40-54 [facility] Hemoglobin measurementOrdere d By: Dylan Mccormick on 11-22-2024 Hemoglobin (Bld) [Mass/Vol] 12.5 g/dL Low 13.0-16.5 [facility] Immature granulocytes/100 WB C Auto (Bld)Ordered By: Dylan Mccormick on 11-22-2024 Immature granulocytes/100 WBC (Bld) 0.300 % 0.0-0.9 [facility] Comment on above: IG% - Immature Granu locytes (promyelocytes, myelocytes and metamyelocytes) > 1% indicates that a LEFT SHIFT is Present. L503.7505on 11-22-2024 Natriuretic peptide B (Bld) [Mass/Vol] 227 pg/mL Normal <=900 [facility] Comment on above: Result Comment: Hear t Failure Unlikely: < 300 pg/mL Heart Failure Likely < 50 Years: > 450 pg/mL 50-75 Years: > 900 pg/mL >75 Years: > 1800 pg/mL Performed By: #### L 503.7505, L500.2500, L100.0100 #### [facility] [address] [place], [address] MCV (mean corpuscular volume ) determinationOrdered By: Dylan Mccormick on 11-22-2024 MCV (RBC) [Entitic vol] 93.3 fL 80-94 [facility] Mean corpuscular hemoglobin (MCH) determinationOrdered By: Dylan Mccormick on 11-22-2024 MCH (RBC) [Entitic mass] 31.0 pg 27.0-32.0 [facility] Mean corpuscular hemoglobin concentration (MCHC) determinationOrdered By: Dylan Mccormick on 11-22-2024 MCHC (RBC) [Mass/Vol] 33.2 g/dL 32-36 [facility] Mean platelet volume determi nationOrdered By: Dylan Mccormick on 11-22-2024 Platelet mean volume (Bld) [Entitic vol] 11.3 fL 6.2-12.0 [facility] Monocyte percentageOrdered B y: Dylan Mccormick on 11-22-2024 Monocytes/100 WBC (Bld) 10.3 % High 0-10 [facility] Natriuretic peptide.B prohor ana N-Terminal [Mass/volume] in Serum or PlasmaOrdered By: Dylan Mccormick on 11-22-2024 Natriuretic peptide.B prohormone N-Terminal [Mass/Vol] 227 pg/mL <900 [facility] Comment on above: Heart Failure Unlike ly: < 300 pg/mLHeart Failure Likely< 50 Years: > 450 pg/mL50-75 Years: > 900 pg/mL>75 Years: > 1800 pg/mL Neutrophil percentageOrdered By: Dylan Mccormick on 11-22-2024 Neutrophils/100 WBC (Bld) 56.9 % 47-70 [facility] Nucleated red blood cell per centageOrdered By: Dylan Mccormick on 11-22-2024 Nucleated RBC/100 WBC (Bld) [Ratio] 0 % 0-5 [facility] Platelet countOrdered By: Eileen Mccormick on 11-22-2024 Platelets (Bld) [#/Vol] 206 10*3/uL 150-450 [facility] Potassium measurement (mass/ volume)Ordered By: Dylan Mccormick on 11-22-2024 Potassium (Unsp spec) [Mass/Vol] 4.5 mmol/L 3.3-5.1 [facility] RBC Auto (Bld) [#/Vol]Ordere d By: Dylan Mccormick on 11-22-2024 RBC (Bld) [#/Vol] 4.03 10*6/uL Low 4.6-6.2 [facility] Serum creatinine measurement (mass/volume)Ordered By: Dylan Mccormick on 11-22-2024 Creatinine [Mass/Vol] 1.30 mg/dL High 0.70-1.20 [facility] Serum glucose measurement (m ass/volume)Ordered By: Dylan Mccormick on 11-22-2024 Glucose [Mass/Vol] 88 mg/dL 70-99 [facility] Serum or plasma calcium odette urement (mass/volume)Ordered By: Dylan Mccormick on 11-22-2024 Calcium [Mass/Vol] 9.0 mg/dL 7.6-11.0 [facility] Serum or plasma urea nitroge n measurement (mass/volume)Ordered By: Dylan Mccormick on 11-22-2024 Urea nitrogen [Mass/Vol] 12 mg/dL 4-19 [facility] Sodium levelOrdered By: Dylan Mccormick on 11-22-2024 Sodium [Moles/Vol] 140 mmol/L 133-145 [facility] White blood cell (WBC) count Ordered By: Dylan Mccormick on 11-22-2024 WBC (Bld) [#/Vol] 11.7 10*3/uL High 4.4-11.0 [facility] CBC-Complete Blood Cnt No Di ffon 11-17-2024 Erythrocyte distribution width (RBC) [Ratio] 14.2 % Normal 11.6-14.6 [facility] Comment on above: Order Comment: Order Date: 11/10/24 Order Info: [id number] - CBC Performed By: #### L 100.0500 #### [facility] [address] [facility] [place], [address] Hematocrit (Bld) [Volume fraction] 37.1 % Low 40-54 [facility] Comment on above: Order Comment: Order Date: 11/10/24 Order Info: [id number] - CBC Performed By: #### L 100.0500 #### [facility] [address] [place], [address] Hemoglobin (Bld) [Mass/Vol] 12.3 g/dL Low 13.0-16.5 [facility] Comment on above: Order Comment: Order Date: 11/10/24 Order Info: [id number] - CBC Performed By: #### L 100.0500 #### [facility] [address] [place], [address] MCH (RBC) [Entitic mass] 31.3 pg Normal 27.0-32.0 [facility] Comment on above: Order Comment: Order Date: 11/10/24 Order Info: [id number] - CBC Performed By: #### L 100.0500 #### [facility] [address] [place], [address] MCHC (RBC) [Mass/Vol] 33.2 g/dL Normal 32-36 [facility] Comment on above: Order Comment: Order Date: 11/10/24 Order Info: [id number] - CBC Performed By: #### L 100.0500 #### [facility] [address] [place], [address] MCV (RBC) [Entitic vol] 94.4 fL High 80-94 [facility] Comment on above: Order Comment: Order Date: 11/10/24 Order Info: [id number] - CBC Performed By: #### L 100.0500 #### [facility] [address] [place], [address] Platelet mean volume (Bld) [Entitic vol] 11.7 fL Normal 6.2-12.0 [facility] Comment on above: Order Comment: Order Date: 11/10/24 Order Info: [id number] - CBC Performed By: #### L 100.0500 #### [facility] [address] [place], [address] Platelets (Bld) [#/Vol] 198 10*3/uL Normal 150-450 [facility] Comment on above: Order Comment: Order Date: 11/10/24 Order Info: [id number] - CBC Performed By: #### L 100.0500 #### [facility] [address] [place], [place], [address] (828) RBC (Bld) [#/Vol] 3.93 10*6/uL Low 4.6-6.2 [facility] Comment on above: Order Comment: Order Date: 11/10/24 Order Info: [id number] - CBC Performed By: #### L 100.0500 #### [facility] [address] [place], [address] RDW SD 49.1 fl High 35.1-43.9 [facility] Comment on above: Order Comment: Order Date: 11/10/24 Order Info: [id number] - CBC Performed By: #### L 100.0500 #### [facility] [address] [place], [place], [id number] (490) WBC (Bld) [#/Vol] 13.8 10*3/uL High 4.4-11.0 [facility] Comment on above: Order Comment: Order Date: 11/10/24 Order Info: [id number] - CBC Performed By: #### L 100.0500 #### [facility] [address] [place], [place], [address] (470) Erythrocyte distribution wid th ratioOrdered By: Dlyan Cardoza on 11-17-2024 Erythrocyte distribution width (RBC) [Ratio] 14.2 % 11.6-14.6 [facility] Erythrocyte distribution wid th standard deviationOrdered By: Dylan Cardoza on 11-17-2024 Erythrocyte distribution width (RBC) [Ratio] 49.1 fl High 35.1-43.9 [facility] Hematocrit Auto (Bld) [Volum e fraction]Ordered By: Dylan Cardoza on 11-17-2024 Hematocrit (Bld) [Volume fraction] 37.1 % Low 40-54 [facility] Hemoglobin measurementOrdere d By: Dylan Cardoza on 11-17-2024 Hemoglobin (Bld) [Mass/Vol] 12.3 g/dL Low 13.0-16.5 [facility] MCV (mean corpuscular volume ) determinationOrdered By: Dylan Cardoza on 11-17-2024 MCV (RBC) [Entitic vol] 94.4 fL High 80-94 [facility] Mean corpuscular hemoglobin (MCH) determinationOrdered By: Dylan Cardoza on 11-17-2024 MCH (RBC) [Entitic mass] 31.3 pg 27.0-32.0 [facility] Mean corpuscular hemoglobin concentration (MCHC) determinationOrdered By: Dylan Cardoza on 11-17-2024 MCHC (RBC) [Mass/Vol] 33.2 g/dL 32-36 [facility] Mean platelet volume determi nationOrdered By: Dylan Cardoza on 11-17-2024 Platelet mean volume (Bld) [Entitic vol] 11.7 fL 6.2-12.0 [facility] Platelet countOrdered By: Eileen Cardoza on 11-17-2024 Platelets (Bld) [#/Vol] 198 10*3/uL 150-450 [facility] RBC Auto (Bld) [#/Vol]Ordere d By: Dylan Cardoza on 11-17-2024 RBC (Bld) [#/Vol] 3.93 10*6/uL Low 4.6-6.2 [facility] White blood cell (WBC) count Ordered By: Dylan Cardoza on 11-17-2024 WBC (Bld) [#/Vol] 13.8 10*3/uL High 4.4-11.0 [facility] Absolute lymphocyte countOrd ered By: Dylan Cardoza on 11-09-2024 Lymphocytes Auto (Unsp spec) [#/Vol] 2.98 10*3/uL 0.83-4.51 [facility] Absolute neutrophil countOrd ered By: Dylan Cardoza on 11-09-2024 Neutrophils (Bld) [#/Vol] 9.4 10*3/uL High 2.0-7.7 [facility] Anion gap in Serum or Plasma Ordered By: Dylan Cardoza on 11-09-2024 Anion gap [Moles/Vol] 10 mmol/L 5-15 [facility] Automated lymphocyte count a s percentage of total leukocytesOrdered By: Dylan Cardoza on 11-09-2024 Lymphocytes/100 WBC Auto (Unsp spec) 21.6 % - [facility] BUN/creatinine ratioOrdered By: Dylan Moncadaraz on 11-09-2024 Urea nitrogen/Creatinine [Mass ratio] 9.8 mg/mg Low 10- [facility] Basophil percentageOrdered B y: Dylan Moncadaraz on 11-09-2024 Basophils/100 WBC (Bld) 0.4 % 0-1 [facility] Bilirubin, totalOrdered By: Dylan Nanceelli on 11-09-2024 Bilirubin [Mass/Vol] 0.33 mg/dL 0.00-1.30 [facility] CBC W/Diff, Automatedon 10-22-2024 Absolute Lymph 2.98 X10 3/uL Normal 0.83-4.51 [facility] Comment on above: Performed By: #### L 500.4050, L506.0200, L503.6030, L503.0106, L100.0100, L500.4100, L503.6550 #### [facility] [address] [place], [address] Absolute Neut 9.4 X10 3/uL High 2.0-7.7 [facility] Comment on above: Performed By: #### L 500.4050, L506.0200, L503.6030, L503.0106, L100.0100, L500.4100, L503.6550 #### [facility] [address] [place], [address] Basophils/100 WBC (Bld) 0.4 % Normal 0-1 [facility] Comment on above: Performed By: #### L 500.4050, L506.0200, L503.6030, L503.0106, L100.0100, L500.4100, L503.6550 #### [facility] [address] [place], [address] Eosinophils/100 WBC (Bld) 2.4 % Normal 0-5 [facility] Comment on above: Performed By: #### L 500.4050, L506.0200, L503.6030, L503.0106, L100.0100, L500.4100, L503.6550 #### [facility] [address] [place] [place], [address] Erythrocyte distribution width (RBC) [Ratio] 14.2 % Normal 11.6-14.6 [facility] Comment on above: Performed By: #### L 500.4050, L506.0200, L503.6030, L503.0106, L100.0100, L500.4100, L503.6550 #### [facility] [address] [place], [address] Hematocrit (Bld) [Volume fraction] 39.4 % Low 40-54 [facility] Comment on above: Performed By: #### L 500.4050, L506.0200, L503.6030, L503.0106, L100.0100, L500.4100, L503.6550 #### [facility] [address] [place], [address] Hemoglobin (Bld) [Mass/Vol] 13.1 g/dL Normal 13.0-16.5 [facility] Comment on above: Performed By: #### L 500.4050, L506.0200, L503.6030, L503.0106, L100.0100, L500.4100, L503.6550 #### [facility] [address] [place], [address] IG% 0.300 Normal 0.0-0.9 [facility] Comment on above: Result Comment: IG% - Immature Granulocytes (promyelocytes, myelocytes and metamyelocytes) > 1% indicates that a LEFT SHIFT is Present. Performed By: #### L 500.4050, L506.0200, L503.6030, L503.0106, L100.0100, L500.4100, L503.6550 #### [facility] [address] [place], [address] Lymphocytes/100 WBC (Bld) 21.6 % Normal 19-41 [facility] Comment on above: Performed By: #### L 500.4050, L506.0200, L503.6030, L503.0106, L100.0100, L500.4100, L503.6550 #### [facility] [address] [place], [address] MCH (RBC) [Entitic mass] 31.5 pg Normal 27.0-32.0 [facility] Comment on above: Performed By: #### L 500.4050, L506.0200, L503.6030, L503.0106, L100.0100, L500.4100, L503.6550 #### [facility] [address] [place], [address] MCHC (RBC) [Mass/Vol] 33.2 g/dL Normal 32-36 [facility] Comment on above: Performed By: #### L 500.4050, L506.0200, L503.6030, L503.0106, L100.0100, L500.4100, L503.6550 #### [facility] [address] [place], [address] MCV (RBC) [Entitic vol] 94.7 fL High 80-94 [facility] Comment on above: Performed By: #### L 500.4050, L506.0200, L503.6030, L503.0106, L100.0100, L500.4100, L503.6550 #### [facility] [address] [place], [address] Monocytes/100 WBC (Bld) 7.4 % Normal 0-10 [facility] Comment on above: Performed By: #### L 500.4050, L506.0200, L503.6030, L503.0106, L100.0100, L500.4100, L503.6550 #### [facility] [address] [place], [address] Neutrophils/100 WBC (Bld) 67.9 % Normal 47-70 [facility] Comment on above: Performed By: #### L 500.4050, L506.0200, L503.6030, L503.0106, L100.0100, L500.4100, L503.6550 #### [facility] [address] [place], [address] Nucleated RBC (Bld) [#/Vol] 0 10*3/uL Normal 0-5 [facility] Comment on above: Performed By: #### L 500.4050, L506.0200, L503.6030, L503.0106, L100.0100, L500.4100, L503.6550 #### [facility] [address] [place], [address] Platelet mean volume (Bld) [Entitic vol] 12.0 fL Normal 6.2-12.0 [facility] Comment on above: Performed By: #### L 500.4050, L506.0200, L503.6030, L503.0106, L100.0100, L500.4100, L503.6550 #### [facility] [address] [place], [address] Platelets (Bld) [#/Vol] 218 10*3/uL Normal 150-450 [facility] Comment on above: Performed By: #### L 500.4050, L506.0200, L503.6030, L503.0106, L100.0100, L500.4100, L503.6550 #### [facility] [address] [place], [address] RBC (Bld) [#/Vol] 4.16 10*6/uL Low 4.6-6.2 [facility] Comment on above: Performed By: #### L 500.4050, L506.0200, L503.6030, L503.0106, L100.0100, L500.4100, L503.6550 #### [facility] [address] [place], [address] RDW SD 49.0 fl High 35.1-43.9 [facility] Comment on above: Performed By: #### L 500.4050, L506.0200, L503.6030, L503.0106, L100.0100, L500.4100, L503.6550 #### [facility] [address] [place], [address] WBC (Bld) [#/Vol] 13.8 10*3/uL High 4.4-11.0 [facility] Comment on above: Performed By: #### L 500.4050, L506.0200, L503.6030, L503.0106, L100.0100, L500.4100, L503.6550 #### [facility] [address] [place], [place], [address] Calculated very low density lipoprotein (VLDL) cholesterol measurementOrdered By: Dylan Cardoza on 11-09-2024 Calculated very low density lipoprotein (VLDL) cholesterol measurement 16 mg/dL 5-40 [facility] Carbon dioxide, total [Moles /volume] in Central venous bloodOrdered By: Dylan Cardoza on 11-09-2024 CO2 [Moles/Vol] 23.9 mmol/L 21.0-32.0 [facility] Chloride assayOrdered By: Eileen Cardoza on 11-09-2024 Chloride [Moles/Vol] 106 mmol/L 98-108 [facility] Comprehensive Metabolic Prof ilon 11-09-2024 Albumin [Mass/Vol] 3.9 g/dL Normal 3.4-4.8 [facility] Comment on above: Performed By: #### L 500.4050, L506.0200, L503.6030, L503.0106, L100.0100, L500.4100, L503.6550 ####[facility] [address] [place], [address] Albumin/Globulin [Mass ratio] 1.2 {ratio} Normal 0.9-2.4 [facility] Comment on above: Performed By: #### L 500.4050, L506.0200, L503.6030, L503.0106, L100.0100, L500.4100, L503.6550 ####[facility] [address] [place], [address]( ALK PHOS 102 U/L Normal 40-129 [facility] Comment on above: Performed By: #### L 500.4050, L506.0200, L503.6030, L503.0106, L100.0100, L500.4100, L503.6550 ####[facility] [address] [place], [address] ALT [Catalytic activity/Vol] 9 U/L Normal <=46 [facility] Comment on above: Performed By: #### L 500.4050, L506.0200, L503.6030, L503.0106, L100.0100, L500.4100, L503.6550 ####[facility] [address] [place], [address] AST [Catalytic activity/Vol] 20 U/L Normal <=37 [facility] Comment on above: Performed By: #### L 500.4050, L506.0200, L503.6030, L503.0106, L100.0100, L500.4100, L503.6550 ####[facility] [address] [place], [address] Bilirubin [Mass/Vol] 0.33 mg/dL Normal 0.00-1.30 [facility] Comment on above: Performed By: #### L 500.4050, L506.0200, L503.6030, L503.0106, L100.0100, L500.4100, L503.6550 ####[facility] [address] [place], [address] BUN/CRE 9.8 RATIO Low 10-20 [facility] Comment on above: Performed By: #### L 500.4050, L506.0200, L503.6030, L503.0106, L100.0100, L500.4100, L503.6550 ####[facility] [address] [place], [address] Calcium [Mass/Vol] 9.2 mg/dL Normal 7.6-11.0 [facility] Comment on above: Performed By: #### L 500.4050, L506.0200, L503.6030, L503.0106, L100.0100, L500.4100, L503.6550 ####[facility] [address] [place], [address] Chloride [Moles/Vol] 106 mmol/L Normal 98-108 [facility] Comment on above: Performed By: #### L 500.4050, L506.0200, L503.6030, L503.0106, L100.0100, L500.4100, L503.6550 ####[facility] [address] [place], [address] CO2 [Moles/Vol] 23.9 mmol/L Normal 21.0-32.0 [facility] Comment on above: Performed By: #### L 500.4050, L506.0200, L503.6030, L503.0106, L100.0100, L500.4100, L503.6550 ####[facility] [address] [place], [address] Creatinine [Mass/Vol] 1.00 mg/dL Normal 0.70-1.20 [facility] Comment on above: Performed By: #### L 500.4050, L506.0200, L503.6030, L503.0106, L100.0100, L500.4100, L503.6550 ####[facility] [address] [place], [place], [id number](307) GAP 10 Normal 5-15 [facility] Comment on above: Performed By: #### L 500.4050, L506.0200, L503.6030, L503.0106, L100.0100, L500.4100, L503.6550 ####[facility] [address] [place], [address] GFR/1.73 sq M.predicted among non-blacks MDRD (S/P/Bld) [Vol rate/Area] 82 mL/min/{1.73_m2} Normal >60 [facility] Comment on above: Result Comment: mL/m in/1.73m2 CKD-EPI Creatinine Equation (2020) Performed By: #### L 500.4050, L506.0200, L503.6030, L503.0106, L100.0100, L500.4100, L503.6550 ####[facility] [address] [place], [place], [phone]) Globulin (S) [Mass/Vol] 3.2 g/dL Normal 2.2-4.2 [facility] Comment on above: Performed By: #### L 500.4050, L506.0200, L503.6030, L503.0106, L100.0100, L500.4100, L503.6550 ####[facility] [address] [place], [address] Glucose [Mass/Vol] 88 mg/dL Normal 70-99 [facility] Comment on above: Performed By: #### L 500.4050, L506.0200, L503.6030, L503.0106, L100.0100, L500.4100, L503.6550 ####[facility] [address] [place], [address] Potassium [Moles/Vol] 4.4 mmol/L Normal 3.3-5.1 [facility] Comment on above: Performed By: #### L 500.4050, L506.0200, L503.6030, L503.0106, L100.0100, L500.4100, L503.6550 ####[facility] [address] [place], [address] Sodium [Moles/Vol] 140 mmol/L Normal 133-145 [facility] Comment on above: Performed By: #### L 500.4050, L506.0200, L503.6030, L503.0106, L100.0100, L500.4100, L503.6550 ####[facility] [address] [place], [address] T PROT 7.2 g/dL Normal 5.9-8.4 [facility] Comment on above: Performed By: #### L 500.4050, L506.0200, L503.6030, L503.0106, L100.0100, L500.4100, L503.6550 ####[facility] [address] [place], [address] Urea nitrogen [Mass/Vol] 10 mg/dL Normal 4-19 [facility] Comment on above: Performed By: #### L 500.4050, L506.0200, L503.6030, L503.0106, L100.0100, L500.4100, L503.6550 ####[facility] [address] [place], [address] Eosinophil percentageOrdered By: Dylan Cardoza on 11-09-2024 Eosinophils/100 WBC (Bld) 2.4 % 0-5 [facility] Erythrocyte distribution wid th ratioOrdered By: Dylan Cardoza on 11-09-2024 Erythrocyte distribution width (RBC) [Ratio] 14.2 % 11.6-14.6 [facility] Erythrocyte distribution wid th standard deviationOrdered By: Dylan Cardoza on 11-09-2024 Erythrocyte distribution width (RBC) [Ratio] 49.0 fl High 35.1-43.9 [facility] Ferritinon 11-09-2024 Ferritin [Mass/Vol] 96 ng/mL Normal 37-417 [facility] Comment on above: Performed By: #### L 500.4050, L506.0200, L503.6030, L503.0106, L100.0100, L500.4100, L503.6550 ####[facility] [address] [place], [place], [id number] Folate [Mass/volume] in Seru m or PlasmaOrdered By: Dylan Cardoza on 11-09-2024 Folate [Mass/Vol] 18.50 ng/mL 4.60-34.80 [facility] Folates,Serum (Folic Acid)on 11-09-2024 FOLATES,SERUM 18.50 ng/mL Normal 4.60-34.80 [facility] Comment on above: Order Comment: N Performed By: #### L 500.4050, L506.0200, L503.6030, L503.0106, L100.0100, L500.4100, L503.6550 ####[facility] [address] [place], [place], [id number] Glomerular filtration rate ( GFR) estimation/1.73 sq m using serum, plasma, or whole bOrdered By: Dylan Cardoza on 11-09-2024 GFR/1.73 sq M.predicted among non-blacks MDRD (S/P/Bld) [Vol rate/Area] 82 mL/min/{1.73_m2} >60 [facility] Comment on above: mL/min/1.73m2 CKD-EP I Creatinine Equation (2020) Hematocrit Auto (Bld) [Volum e fraction]Ordered By: Dylan Cardoza on 11-09-2024 Hematocrit (Bld) [Volume fraction] 39.4 % Low 40-54 [facility] Hemoglobin measurementOrdere d By: Dylan Cardoza on 11-09-2024 Hemoglobin (Bld) [Mass/Vol] 13.1 g/dL 13.0-16.5 [facility] Immature granulocytes/100 WB C Auto (Bld)Ordered By: Dylan Cardoza on 11-09-2024 Immature granulocytes/100 WBC (Bld) 0.300 % 0.0-0.9 [facility] Comment on above: IG% - Immature Granu locytes (promyelocytes, myelocytes and metamyelocytes) > 1% indicates that a LEFT SHIFT is Present. Iron measurement (mass/mass) Ordered By: Dylan Cardoza on 11-09-2024 Iron (Unsp spec) [Mass/Mass] 74 ug/dL 65-175 [facility] Iron+Iron Binding Capacityon 11-09-2024 Iron [Mass/Vol] 74 ug/dL Normal 65-175 [facility] Comment on above: Performed By: #### L 500.4050, L506.0200, L503.6030, L503.0106, L100.0100, L500.4100, L503.6550 ####[facility] [address] [place], [address] IRON SATURATION 23.0 Normal 9-55 [facility] Comment on above: Performed By: #### L 500.4050, L506.0200, L503.6030, L503.0106, L100.0100, L500.4100, L503.6550 ####[facility] [address] [place], [address] TIBC 330 ug/dL Normal 250-450 [facility] Comment on above: Performed By: #### L 500.4050, L506.0200, L503.6030, L503.0106, L100.0100, L500.4100, L503.6550 ####[facility] [address] [place], [address] UIBC 256 ug/dL Normal 228-428 [facility] Comment on above: Performed By: #### L 500.4050, L506.0200, L503.6030, L503.0106, L100.0100, L500.4100, L503.6550 ####[facility] [address] [place], [address] LDL calc ser/plasOrdered By: Dylan Cardoza on 11-09-2024 Cholesterol in LDL [Mass/Vol] 55 mg/dL [facility] Comment on above: Hblywsqyjz=170-165 m g/dL & Higher Wcll=074 mg/dL or greater Laboratory - Chemistry and C hemistry - challengeOrdered By: Dylan Cardoza on 11-09-2024 AST [Catalytic activity/Vol] 20 U/L <38 [facility] Lipid Profileon 11-09-2024 CHOL:HDL 2.96 Normal [facility] Comment on above: Performed By: #### L 500.4050, L506.0200, L503.6030, L503.0106, L100.0100, L500.4100, L503.6550 ####[facility] [address] [place], [address] Cholesterol [Mass/Vol] 108 mg/dL Normal <=200 [facility] Comment on above: Result Comment: Chol esterol level, Desirable <200 mg/dL Borderline high cholesterol 200-239 mg/dL High cholesterol >=240 mg/dL Recommendations of the NCEP Adult Treatment Panel for the following risk-cutoff thresholds for the [place] population. Performed By: #### L 500.4050, L506.0200, L503.6030, L503.0106, L100.0100, L500.4100, L503.6550 ####[facility] [address] [place], [address] Cholesterol in HDL [Mass/Vol] 37 mg/dL Low [facility] Comment on above: Result Comment: Shannon onal Cholesterol Education Program (NCEP) guidelines: <40 mg/dL: Low HDL-cholesterol (major risk factor for CHD) >= 60 mg/dL: High HDL-cholesterol (negative risk factor for CHD) HDL-cholesterol is affected by a number of factors, e.g. smoking, exercise, hormones, sex and age. Performed By: #### L 500.4050, L506.0200, L503.6030, L503.0106, L100.0100, L500.4100, L503.6550 ####[facility] [address] [place], [address] Cholesterol in LDL [Mass/Vol] 55 mg/dL Normal [facility] Comment on above: Result Comment: Bord tdrewa=069-784 mg/dL Higher Mtsq=930 mg/dL or greater Performed By: #### L 500.4050, L506.0200, L503.6030, L503.0106, L100.0100, L500.4100, L503.6550 ####[facility] [address] [place], [address] Cholesterol in VLDL [Mass/Vol] 16 mg/dL Normal 5-40 [facility] Comment on above: Performed By: #### L 500.4050, L506.0200, L503.6030, L503.0106, L100.0100, L500.4100, L503.6550 ####[facility] [address] [place], [address] Triglyceride [Mass/Vol] 81 mg/dL Normal [facility] Comment on above: Result Comment: The drugs N-Acetylcysteine and Metamizole may falsely depress this assay. Normal range: <150 mg/dL Borderline High: 150-199 mg/dL High: 200-499 mg/dL Very High: >500 mg/dL Performed By: #### L 500.4050, L506.0200, L503.6030, L503.0106, L100.0100, L500.4100, L503.6550 ####[facility] [address] [place], [address] MCV (mean corpuscular volume ) determinationOrdered By: Dylan Cardoza on 11-09-2024 MCV (RBC) [Entitic vol] 94.7 fL High 80-94 [facility] Mean corpuscular hemoglobin (MCH) determinationOrdered By: Dylan Cardoza on 11-09-2024 MCH (RBC) [Entitic mass] 31.5 pg 27.0-32.0 [facility] Mean corpuscular hemoglobin concentration (MCHC) determinationOrdered By: Dylan Cardoza on 11-09-2024 MCHC (RBC) [Mass/Vol] 33.2 g/dL 32-36 [facility] Mean platelet volume determi nationOrdered By: Dylan Cardoza on 11-09-2024 Platelet mean volume (Bld) [Entitic vol] 12.0 fL 6.2-12.0 [facility] Monocyte percentageOrdered B y: Dylan Cardoza on 11-09-2024 Monocytes/100 WBC (Bld) 7.4 % 0-10 [facility] Neutrophil percentageOrdered By: Dylan Cardoza on 11-09-2024 Neutrophils/100 WBC (Bld) 67.9 % 47-70 [facility] No Panel InformationOrdered By: Dylan Cardoza on 11-09-2024 Unsaturated Iron Binding Capacity 256 ug/dL 228-428 [facility] Nucleated red blood cell per centageOrdered By: Dylan Cardoza on 11-09-2024 Nucleated RBC/100 WBC (Bld) [Ratio] 0 % 0-5 [facility] Platelet countOrdered By: Eileen Cardoza on 11-09-2024 Platelets (Bld) [#/Vol] 218 10*3/uL 150-450 [facility] Potassium measurement (mass/ volume)Ordered By: Dylan Cardoza on 11-09-2024 Potassium (Unsp spec) [Mass/Vol] 4.4 mmol/L 3.3-5.1 [facility] RBC Auto (Bld) [#/Vol]Ordere d By: Dylan Cardoza on 11-09-2024 RBC (Bld) [#/Vol] 4.16 10*6/uL Low 4.6-6.2 [facility] Screening total cholesterol/ high density lipoprotein (HDL) cholesterol ratioOrdered By: Dylan Cardoza on 11-09-2024 Cholesterol.total/Choles terol in HDL [Mass ratio] 2.96 {ratio} [facility] Serum creatinine measurement (mass/volume)Ordered By: Dylan Cardoza on 11-09-2024 Creatinine [Mass/Vol] 1.00 mg/dL 0.70-1.20 [facility] Serum globulin measurementOr dered By: Dylan Cardoza on 11-09-2024 Globulin (S) [Mass/Vol] 3.2 g/dL 2.2-4.2 [facility] Serum glucose measurement (m ass/volume)Ordered By: Dylan Cardoza on 11-09-2024 Glucose [Mass/Vol] 88 mg/dL 70-99 [facility] Serum or plasma alanine tee otransferase (ALT) measurementOrdered By: Dylan Cardoza on 11-09-2024 ALT [Catalytic activity/Vol] 9 U/L <47 [facility] Serum or plasma albumin odette urement (mass/volume)Ordered By: Dylan Cardoza on 11-09-2024 Albumin [Mass/Vol] 3.9 g/dL 3.4-4.8 [facility] Serum or plasma albumin/glob ulin mass ratioOrdered By: Dylan Cardoza on 11-09-2024 Albumin/Globulin [Mass ratio] 1.2 {ratio} 0.9-2.4 [facility] Serum or plasma alkaline ulises sphatase measurementOrdered By: Dylan Cardoza on 11-09-2024 ALP [Catalytic activity/Vol] 102 U/L 40-129 [facility] Serum or plasma calcium odette urement (mass/volume)Ordered By: Dylan Cardoza on 11-09-2024 Calcium [Mass/Vol] 9.2 mg/dL 7.6-11.0 [facility] Serum or plasma cholesterol in HDL measurement (mass/volume)Ordered By: Dylan Cardoza on 11-09-2024 Cholesterol in HDL [Mass/Vol] 37 mg/dL Low >40 [facility] Comment on above: National Cholesterol Education Program (NCEP) guidelines:<40 mg/dL: Low HDL-cholesterol (major risk factor for CHD)>= 60 mg/dL: High HDL-cholesterol (negative risk factor for CHD)HDL-cholesterol is affected by a number of factors, e.g. smoking, exercise, hormones, sex and age. Serum or plasma cholesterol measurement (mass/volume)Ordered By: Dylan Cardoza on 11-09-2024 Cholesterol [Mass/Vol] 108 mg/dL <201 [facility] Comment on above: Cholesterol level, D esirable <200 mg/dLBorderline high cholesterol 200-239 mg/dLHigh cholesterol >=240 mg/dLRecommendations of the NCEP Adult Treatment Panel for the following risk-cutoff thresholds for the [place] population. Serum or plasma ferritin jose armando surement (mass/volume)Ordered By: Dylan Cardoza on 11-09-2024 Ferritin [Mass/Vol] 96 ng/mL 37-417 [facility] Serum or plasma iron saturat ion measurement (mass fraction)Ordered By: Dylan Cardoza on 11-09-2024 Iron saturation [Mass fraction] 23.0 % 9-55 [facility] Serum or plasma urea nitroge n measurement (mass/volume)Ordered By: Dylan Cardoza on 11-09-2024 Urea nitrogen [Mass/Vol] 10 mg/dL 4-19 [facility] Sodium levelOrdered By: Dylan Cardoza on 11-09-2024 Sodium [Moles/Vol] 140 mmol/L 133-145 [facility] Total proteinOrdered By: Kleber Cardoza on 11-09-2024 Protein [Mass/Vol] 7.2 g/dL 5.9-8.4 [facility] Triglycerides measurementOrd ered By: Dylan Cardoza on 11-09-2024 Triglyceride [Mass/Vol] 81 mg/dL <199 [facility] Comment on above: The drugs N-Acetylcy steine and Metamizole may falsely depress this assay. Normal range: <150 mg/dLBorderline High: 150-199 mg/dLHigh: 200-499 mg/dLVery High: >500 mg/dL Vitamin B12on 11-09-2024 Cobalamin (Vitamin B12) [Mass/Vol] 575 pg/mL Normal 180-914 [facility] Comment on above: Performed By: #### L 500.4050, L506.0200, L503.6030, L503.0106, L100.0100, L500.4100, L503.6550 ####[facility] [address] [place], [address] Vitamin B12 ser/plasOrdered By: Dylan Cardoza on 11-09-2024 Cobalamin (Vitamin B12) [Mass/Vol] 575 pg/mL 180-914 [facility] White blood cell (WBC) count Ordered By: Dylan Cardoza on 11-09-2024 WBC (Bld) [#/Vol] 13.8 10*3/uL High 4.4-11.0 [facility] Low Dose CT Lung Screeningon 06-04-[address] Lung Screening [facility] Imaging Services [address] [place], [place] [id number] Low Dose CT Lung Screening MR#: [id number] Acct: [id number] Name: CARA FONTENOT Rep #: [id number] : [id number] M 69 From: Jeremias Wagner MD PCP: Dr. Dylan Cardoza MD Status: [facility] Study: Low Dose CT Lung Screening Date of Exam: 06/04 Exam# [id number] Ordering Dr: Dylan Cardoza MD [id number] STUDY: LOW DOSE CT LUNG CANCER SCREENING REASON FOR EXAM: Male, 69 years old. 1 1/2 pack per day smoker x47 years RADIATION DOSAGE (If Supplied By Facility): CTDIvol = ( 2.01 ) mGy, DLP = ( 70.97 ) mGycm TECHNIQUE: No contrast was administered. Low dose technique was utilized (average mAS-38 and kVp 120). 1.25 mm axial source images with a slice interval of 1.25-mm were reconstructed in lung windows. 2.5 mm axial source images with a slice interval of 2.5-mm were reconstructed in lung windows. 5.0 mm axial source images with a slice interval of 5.0-mm were reconstructed in soft tissue windows. COMPARISON: 05/22/2023 FINDINGS: Lung windows show underlying emphysema with nonspecific pleural thickening in both apices. Scattered chronic interstitial changes in both upper lung [place] unchanged from the previous study. There are tree-in-bud opacifications in both lung [place] suggesting small airways inflammation and evidence of chronic bronchitis but there is no organized infiltrate, effusion, or suspicious noncalcified mass or nodule. Limited soft tissue windows show normal-appearing thyroid gland. No suspicious adenopathy. There are calcified coronary vessels. Limited cuts through the upper abdomen do not show a suspicious abnormality. Bony structures show degenerative change Overall, no significant change since the previous study CT/Low Dose CT Lung Screening IMPRESSION: Lung-RADS category 2 - Continue annual screening with LDCT in 12 months. IMPORTANT NOTES FOR USE: ACR Lung-RADS Version 1.1 Assessment Categories Release Date: 2018 Category: Coded 0-4 bases on nodule(s) with highest degree of suspicion. Negative screen is defined as categories 1 and 2; a positive screen is defined as categories 3 and 4. Category 3 and 4A nodules that are unchanged on interval CT should be coded as category 2, and individuals returned to screening in 12 months. Category 4X: Category 3 or 4 nodules with additional imaging findings that increase the suspicion of lung cancer, such as spiculation, GGN that doubles in size in 1 year, enlarged lymph notes, etc. Category Modifiers: S (significant finding unrelated to lung cancer) Electronically Signed: Micky Wagner MD at 21:23 [facility] , CC: Dr. Dylan Cardoza MD Osha Inspector: Signed Normal [facility] PSA,Total - Annual Screenon 05-11-2024 PSA,TOT SCREEN 2.19 ng/mL Normal 0.00-4.00 [facility] Comment on above: Order Comment: Order Date: 05/11/24Order Info: [id number] - PSA Result Comment: This test was performed using the TPSA assay method for the [employer] system. Values obtained with different assay methods cannot be used interchangably. When changing PSA assays in the course of monitoring a patient, additional sequential testing should be carried out to confirm baseline values. Performed By: #### L [id number] ####[facility] [id number], [address] [facility] [employer]) CARA FONTENOT ([id number]) 1955 M Date Time Provider Department 09/09/23 BOLIVAR WILLIS During your visit today, we recorded the following information about you: Steph Holley 09/09/2023 4:56 PM Signed New Patient referral received from Dr. Dylan Cardoza for Leukocytosis. Patient has [employer] Medicare Gold. Attempted to contact patient to schedule, but patient was unavailable. This PSS was directed to call back the morning of 09/09. Dann Parsons 09/10/2023 8:12 AM Signed Patient voiced stating that he declined a appointment Dann Devries Allergies As of Date: 09/09/2023 (No Known Allergies) Date Reviewed: 08/11/2014 Reviewed by: Eileen Segundo (Orange Picker Machine Operator) - Fully Assessed Reason for Visit: New Patient [172] Prescriptions as of 09/10/2023 - carvedilol (COREG) 25 mg tablet Take 25 mg by mouth twice daily with meals. - pantoprazole DR (PROTONIX) 40 mg tablet Take 40 mg by mouth once daily. - aspirin 325 mg ORAL tablet Take 1 tablet by mouth once daily. - atorvastatin 80 mg ORAL tablet Take 1 tablet by mouth daily at bedtime. - clopidogrel 75 mg ORAL tablet Take 1 tablet by mouth once daily. - lisinopril 10 mg ORAL tablet Take 1 tablet by mouth once daily. - nitroglycerin sublingual 0.4 mg SUBLINGUAL SL tablet Dissolve 1 tablet under the tongue as needed for Chest Pain. Problem List As Of Date 09/09/2023 Noted Resolved SUMMARY [V999.95] 10/04/2010 Cardiac arrest - ventricular fibrillation 10/04/2010 CAD (coronary artery disease) [I25.10] 10/04/2010 Cardiomyopathy (HCC) [I42.9] 10/04/2010 Respiratory failure (HCC) [J96.90] 10/05/2010 10/16/2010 Leukocytosis [D72.829] 10/05/2010 Elevated blood pressure [CGS3759] 10/05/2010 Atrial fibrillation (HCC) [I48.91] 10/06/2010 10/09/2010 Poor nutrition 10/07/2010 10/23/2010 Anemia [D64.9] 10/08/2010 Thrombocytopenia (HCC) [D69.6] 10/08/2010 10/11/2010 Pneumonia [J18.9] 10/08/2010 Distended abdomen [R14.0] 10/14/2010 Diarrhea [R19.7] 10/16/2010 10/23/2010 Ulcer of heel (HCC) [L97.409] 10/16/2010 Acute kidney injury (HCC) [N17.9] 10/23/2010 Biventricular cardiac pacemaker in situ [Z95.0] 10/26/2010 Heartburn [R12] Heart abnormality [Q24.9] Unspecified essential hypertension [I10] Occult blood positive stool [R19.5] Benign neoplasm of colon [D12.6] Esophagitis, unspecified [K20.90] GI bleed [K92.2] Encounter Status:Closed by DANN DEVRIES on 09/10/23 Normal [facility] Absolute lymphocyte countOrd ered By: Dylan Cardoza on 09-04-2023 Lymphocytes Auto (Unsp spec) [#/Vol] 3.39 10*3/uL 0.83-4.51 [facility] Automated lymphocyte count a s percentage of total leukocytesOrdered By: Dylan Cardoza on 09-04-2023 Lymphocytes/100 WBC Auto (Unsp spec) 19.1 % 19-41 [facility] Basophil percentageOrdered B y: Dylan Cardoza on 09-04-2023 Basophils/100 WBC (Bld) 0.5 % 0-1 [facility] Eosinophils/100 WBC (Bld) 2.3 % 0-5 [facility] Hemoglobin (Bld) [Mass/Vol] 12.7 g/dL 13.0-16.5 [facility] Monocytes/100 WBC (Bld) 7.3 % 0-10 [facility] Neutrophils (Bld) [#/Vol] 12.5 10*3/uL 2.0-7.7 [facility] Neutrophils/100 WBC (Bld) 70.3 % 47-70 [facility] WBC (Bld) [#/Vol] 17.8 10*3/uL 4.4-11.0 [facility] Determination of erythrocyte mean corpuscular volume (MCV)Ordered By: Dylan Cardoza on 09-04-2023 MCV (RBC) [Entitic vol] 91.6 fL 80-94 [facility] Erythrocyte distribution wid th ratioOrdered By: Dylan Cardoza on 09-04-2023 Erythrocyte distribution width (RBC) [Ratio] 13.4 % 11.6-14.6 [facility] Erythrocyte distribution wid th standard deviationOrdered By: Dylan Cardoza on 09-04-2023 Erythrocyte distribution width (RBC) [Entitic vol] 45.2 fL 35.1-43.9 [facility] Hematocrit Auto (Bld) [Volum e fraction]Ordered By: Dylan Cardoza on 09-04-2023 Hematocrit (Bld) [Volume fraction] 38.2 % 40-54 [facility] Immature granulocytes/100 WB C Auto (Bld)Ordered By: Dylan Cardoza on 09-04-2023 Immature granulocytes/100 WBC (Bld) 0.500 % 0.0-0.9 [facility] Comment on above: IG% - Immature Granu locytes (promyelocytes, myelocytes and metamyelocytes) > 1% indicates that a LEFT SHIFT is Present. Laboratory - Hematology and Cell countsOrdered By: Dylan Cardoza on 09-04-2023 MCH (RBC) [Entitic mass] 30.5 pg 27.0-32.0 [facility] MCHC (RBC) [Mass/Vol] 33.2 g/dL 32-36 [facility] Nucleated RBC/100 WBC (Bld) [Ratio] 0 % 0-5 [facility] Platelet mean volume (Bld) [Entitic vol] 11.5 fL 6.2-12.0 [facility] Platelets (Bld) [#/Vol] 242 10*3/uL 150-450 [facility] RBC Auto (Bld) [#/Vol]Ordere d By: Dylan Cardoza on 09-04-2023 RBC (Bld) [#/Vol] 4.17 10*6/uL 4.6-6.2 [facility] Absolute lymphocyte countOrd ered By: Jacqui Loya on 08-29-2023 Lymphocytes Auto (Unsp spec) [#/Vol] 3.63 10*3/uL 0.83-4.51 [facility] Automated lymphocyte count a s percentage of total leukocytesOrdered By: Jacqui Loya on 08-29-2023 Lymphocytes/100 WBC Auto (Unsp spec) 25.2 % 19-41 [facility] Basophil percentageOrdered B y: Jacqui Loya on 08-29-2023 Basophils/100 WBC (Bld) 0.4 % 0-1 [facility] Chloride [Moles/Vol] 104 mmol/L 98-107 [facility] Eosinophils/100 WBC (Bld) 3.4 % 0-5 [facility] Glucose [Mass/Vol] 86 mg/dL 74-106 [facility] Hemoglobin (Bld) [Mass/Vol] 12.9 g/dL 13.0-16.5 [facility] Monocytes/100 WBC (Bld) 7.9 % 0-10 [facility] Neutrophils (Bld) [#/Vol] 9.0 10*3/uL 2.0-7.7 [facility] Neutrophils/100 WBC (Bld) 62.7 % 47-70 [facility] Potassium [Moles/Vol] 4.3 mmol/L 3.5-5.1 [facility] Sodium [Moles/Vol] 137 mmol/L 136-145 [facility] WBC (Bld) [#/Vol] 14.4 10*3/uL 4.4-11.0 [facility] Determination of erythrocyte mean corpuscular volume (MCV)Ordered By: Jacqui Loya on 08-29-2023 MCV (RBC) [Entitic vol] 92.7 fL 80-94 [facility] Erythrocyte distribution wid th ratioOrdered By: Jacqui Loya on 08-29-2023 Erythrocyte distribution width (RBC) [Ratio] 13.5 % 11.6-14.6 [facility] Erythrocyte distribution wid th standard deviationOrdered By: Jacqui Loya on 08-29-2023 Erythrocyte distribution width (RBC) [Entitic vol] 45.8 fL 35.1-43.9 [facility] Hematocrit Auto (Bld) [Volum e fraction]Ordered By: Jacqui Loya on 08-29-2023 Hematocrit (Bld) [Volume fraction] 39.2 % 40-54 [facility] Immature granulocytes/100 WB C Auto (Bld)Ordered By: Jacqui Loya on 08-29-2023 Immature granulocytes/100 WBC (Bld) 0.400 % 0.0-0.9 [facility] Comment on above: IG% - Immature Granu locytes (promyelocytes, myelocytes and metamyelocytes) > 1% indicates that a LEFT SHIFT is Present. Laboratory - Chemistry and C hemistry - challengeOrdered By: Jacqui Loya on 08-29-2023 CO2 [Moles/Vol] 31.0 mmol/L 21.0-32.0 [facility] Natriuretic peptide B (Bld) [Mass/Vol] 52.2 pg/mL 0-100 [facility] Urea nitrogen/Creatinine [Mass ratio] 12.5 mg/mg 10-20 [facility] Laboratory - Hematology and Cell countsOrdered By: Jacqui Loya on 08-29-2023 MCH (RBC) [Entitic mass] 30.5 pg 27.0-32.0 [facility] MCHC (RBC) [Mass/Vol] 32.9 g/dL 32-36 [facility] Nucleated RBC/100 WBC (Bld) [Ratio] 0 % 0-5 [facility] Platelet mean volume (Bld) [Entitic vol] 11.4 fL 6.2-12.0 [facility] Platelets (Bld) [#/Vol] 237 10*3/uL 150-450 [facility] No Panel InformationOrdered By: Jacqui Loya on 08-29-2023 Estimated GFR (MDRD) Amer 84 mL/min >60 [facility] Comment on above: GFR Calc Estimated GFR (MDRD) Non-Af Amer 69 mL/min >60 [facility] Comment on above: Non- GFR Calc RBC Auto (Bld) [#/Vol]Ordere d By: Jacqui Loya on 08-29-2023 RBC (Bld) [#/Vol] 4.23 10*6/uL 4.6-6.2 [facility] Serum or plasma calcium odette urement (mass/volume)Ordered By: Jacqui Loya on 08-29-2023 Calcium [Mass/Vol] 9.5 mg/dL 8.5-10.1 [facility] Serum or plasma creatinine m easurement (mass/volume)Ordered By: Jacqui Loya on 08-29-2023 Creatinine [Mass/Vol] 1.12 mg/dL 0.70-1.30 [facility] Comment on above: The validity of the calculated GFR & GFRAA in patients over 70 years has not been determined. Clinical correlation is essential. Serum or plasma urea nitroge n measurement (mass/volume)Ordered By: Jacqui Loya on 08-29-2023 Urea nitrogen [Mass/Vol] 14 mg/dL 7-18 [facility] Thin prep Papanicolaou smear with manual screeningOrdered By: Jacqui Loya on 08-29-2023 Thin prep Papanicolaou smear with manual screening 2 5-15 [facility] No Panel InformationOrdered By: Dylan Cardoza on 05-08-2023 Prostate Specific Antigen Screen 1.95 ng/mL 0.00-4.00 [facility] Comment on above: This test was perfor med using the TPSA assay method for the[facility]. Values obtained with differentassay methods cannot be used interchangably.When changing PSA assays in the course of monitoring apatient, additional sequential testing should be carriedout to confirm baseline values. Absolute lymphocyte countOrd ered By: Dylan Cardoza on 03-06-2023 Lymphocytes Auto (Unsp spec) [#/Vol] 3.62 10*3/uL 0.83-4.51 [facility] Basophil percentageOrdered B y: Dylan Cardoza on 03-06-2023 Basophil percentage 0-5 SEEN /hpf 0-5 [facility] Basophils/100 WBC (Bld) 0.5 % 0-1 [facility] Bilirubin [Mass/Vol] 0.40 mg/dL 0.20-1.00 [facility] Comment on above: For patients on eltr ombopag therapy, use of Dimension [place] TBIL is not recommended. Chloride [Moles/Vol] 106 mmol/L 98-107 [facility] Cholesterol [Mass/Vol] 115 mg/dL <200 [facility] Comment on above: <200 mg/dL Desirable 200-240 mg/dL Borderline >240 mg/dL High Risk Eosinophils/100 WBC (Bld) 2.4 % 0-5 [facility] Glucose [Mass/Vol] 72 mg/dL 74-106 [facility] Neutrophils (Bld) [#/Vol] 7.6 10*3/uL 2.0-7.7 [facility] Neutrophils/100 WBC (Bld) 60.0 % 47-70 [facility] Potassium [Moles/Vol] 3.9 mmol/L 3.5-5.1 [facility] Protein [Mass/Vol] 7.1 g/dL 6.4-8.2 [facility] Sodium [Moles/Vol] 138 mmol/L 136-145 [facility] Triglyceride [Mass/Vol] 77 mg/dL <199 [facility] Comment on above: The drugs N-Acetylcy steine and Metamizole may falsely depress this assay.Serum Triglycerides Reference Interval Normal <150 mg/dL Borderline high 150 - 199 mg/dL High 200 - 499 mg/dL Very High > or = 500 mg/dL WBC (Bld) [#/Vol] 12.6 10*3/uL 4.4-11.0 [facility] Bilirubin Test strip Ql (U)O rdered By: Dylan Cardoza on 03-06-2023 Bilirubin Ql (U) Negative Negative [facility] Blood erythrocytes count (nu mber/volume)Ordered By: Dylan Cardoza on 03-06-2023 RBC (Bld) [#/Vol] 4.13 10*6/uL 4.6-6.2 [facility] Blood hemoglobin measurement (mass/volume)Ordered By: Dylan Cardoza on 03-06-2023 Hemoglobin (Bld) [Mass/Vol] 13.0 g/dL 13.0-16.5 [facility] Blood lymphocytes/100 leukoc ytesOrdered By: Dylan Cardoza on 03-06-2023 Lymphocytes/100 WBC (Bld) 28.6 % 19-41 [facility] Blood monocytes/100 leukocyt esOrdered By: Dylan Cardoza on 03-06-2023 Monocytes/100 WBC (Bld) 8.2 % 0-10 [facility] Blood platelet mean volumeOr dered By: Dylan Cardoza on 03-06-2023 Platelet mean volume (Bld) [Entitic vol] 11.4 fL 6.2-12.0 [facility] Determination of erythrocyte mean corpuscular volume (MCV)Ordered By: Dylan Cardoza on 03-06-2023 MCV (RBC) [Entitic vol] 94.2 fL 80-94 [facility] Hematocrit Auto (Bld) [Volum e fraction]Ordered By: Dylan Cardoza on 03-06-2023 Hematocrit (Bld) [Volume fraction] 38.9 % 40-54 [facility] Hyaline casts LM.LPF (Urine sed) [#/Area]Ordered By: Dylan Cardoza on 03-06-2023 Hyaline casts (Urine sed) [#/Area] 0 /[LPF] 0-5 [facility] Ketones Test strip Ql (U)Ord ered By: Dylan Cardoza on 03-06-2023 Ketones Ql (U) 5 mg/dl Negative [facility] Laboratory - Chemistry and C hemistry - challengeOrdered By: Dylan Cardoza on 03-06-2023 ALP [Catalytic activity/Vol] 88 U/L 45-117 [facility] ALT [Catalytic activity/Vol] 15 U/L 16-61 [facility] CO2 [Moles/Vol] 21.0 mmol/L 21.0-32.0 [facility] Globulin (S) [Mass/Vol] 3.5 g/dL 2.2-4.2 [facility] Urea nitrogen/Creatinine [Mass ratio] 11.2 mg/mg 10-20 [facility] Laboratory - Hematology and Cell countsOrdered By: Dylan Cardoza on 03-06-2023 Erythrocyte distribution width (RBC) [Entitic vol] 47.2 fL 35.1-43.9 [facility] Erythrocyte distribution width (RBC) [Ratio] 13.8 % 11.6-14.6 [facility] Immature granulocytes/100 WBC (Bld) 0.300 % 0.0-0.9 [facility] Comment on above: IG% - Immature Granu locytes (promyelocytes, myelocytes and metamyelocytes) > 1% indicates that a LEFT SHIFT is Present. MCH (RBC) [Entitic mass] 31.5 pg 27.0-32.0 [facility] Nucleated RBC/100 WBC (Bld) [Ratio] 0 % 0-5 [facility] MCHC Auto (RBC) [Mass/Vol]Or dered By: Dylan Cardoza on 03-06-2023 MCHC (RBC) [Mass/Vol] 33.4 g/dL 32-36 [facility] Mucus LM Ql (Urine sed)Order ed By: Dylan Cardoza on 03-06-2023 Mucus Ql (Urine sed) 0 SEEN /hpf [facility] Nitrite Test strip Ql (U)Ord ered By: Dylan Cardoza on 03-06-2023 Nitrite Ql (U) Negative Negative [facility] No Panel InformationOrdered By: Dylan Cardoza on 03-06-2023 Estimated GFR (MDRD) Amer 81 mL/min >60 [facility] Comment on above: GFR Calc Estimated GFR (MDRD) Non-Af Amer 67 mL/min >60 [facility] Comment on above: Non- GFR Calc Thyroid Stimulating Hormone (TSH) 1.30 uIU/mL 0.358-3.74 [facility] Platelets bldOrdered By: Kleber Cardoza on 03-06-2023 Platelets (Bld) [#/Vol] 184 10*3/uL 150-450 [facility] Protein Test strip Ql (U)Ord ered By: Dylan Cardoza on 03-06-2023 Protein Ql (U) Negative Negative [facility] Serum or plasma albumin odette urement (mass/volume)Ordered By: Dylan Cardoza on 03-06-2023 Albumin [Mass/Vol] 3.6 g/dL 3.2-5.0 [facility] Serum or plasma albumin/glob ulin mass ratioOrdered By: Dylan Cardoza on 03-06-2023 Albumin/Globulin [Mass ratio] 1.0 {ratio} 0.9-2.4 [facility] Serum or plasma calcium odette urement (mass/volume)Ordered By: Dylan Cardoza on 03-06-2023 Calcium [Mass/Vol] 8.7 mg/dL 8.5-10.1 [facility] Serum or plasma cholesterol in HDL measurement (mass/volume)Ordered By: Dylan Cardoza on 03-06-2023 Cholesterol in HDL [Mass/Vol] 41 mg/dL >40 [facility] Comment on above: The drugs N-Acetylcy steine and Metamizole may falsely depress this assay. Reference Range HDL <40 mg/dL Low HDL Cholesterol HDL >or= 60 mg/dL High HDL Cholesterol Serum or plasma cholesterol in VLDL measurement (mass/volume)Ordered By: Dylan Cardoza on 03-06-2023 Cholesterol in VLDL [Mass/Vol] 15 mg/dL 5-40 [facility] Serum or plasma creatinine m easurement (mass/volume)Ordered By: Dylan Cardoza on 03-06-2023 Creatinine [Mass/Vol] 1.16 mg/dL 0.70-1.30 [facility] Comment on above: The validity of the calculated GFR & GFRAA in patients over 70 years has not been determined. Clinical correlation is essential. Serum or plasma low density lipoprotein (LDL) cholesterol measurement (mass/volume)Ordered By: Dylan Cardoza on 03-06-2023 Cholesterol in LDL [Mass/Vol] 59 mg/dL 0-130 [facility] Serum or plasma urea nitroge n measurement (mass/volume)Ordered By: Dylan Cardoza on 03-06-2023 Urea nitrogen [Mass/Vol] 13 mg/dL 7-18 [facility] Squamous epithelial cells de tection in urine sediment by light microscopyOrdered By: Dylan Cardoza on 03-06-2023 Epithelial cells.squamous LM Ql (Urine sed) 0 SEEN /hpf 0-5 [facility] Thin prep Papanicolaou smear with manual screeningOrdered By: Dylan Cardoza on 03-06-2023 Thin prep Papanicolaou smear with manual screening 19 U/L 15-37 [facility] Thin prep Papanicolaou smear with manual screening 11 5-15 [facility] Urine blood detectionOrdered By: Dylan Cardoza on 03-06-2023 RBC Ql (U) Negative Negative [facility] RBC Ql (U) 0 SEEN /hpf 0-5 [facility] Urine clarityOrdered By: Kleber Cardoza on 03-06-2023 Clarity (U) Clear Clear [facility] Urine color determinationOrd ered By: Dylan Cardoza on 03-06-2023 Color (U) Yellow Yellow [facility] Urine glucose detectionOrder ed By: Dylan Cardoza on 03-06-2023 Glucose Ql (U) Normal mg/dl Normal [facility] Urine leukocyte esterase det ection by dipstickOrdered By: Dylan Cardoza on 03-06-2023 Leukocyte esterase Test strip Ql (U) 25 /ul Negative [facility] Urine pHOrdered By: Dylan calloway on 03-06-2023 pH (U) 5.0 [pH] 5.0 - 8.0 [facility] Urine sediment bacteria coun t by microscopy (number/high power field)Ordered By: Dylan Cardoza on 03-06-2023 Bacteria LM.HPF (Urine sed) [#/Area] 0 /[HPF] None Seen [facility] Urine specific gravity measu rementOrdered By: Dylan Cardoza on 03-06-2023 Specific gravity (U) [Rel density] 1.015 1.002-1.030 [facility] Urobilinogen Auto test strip Ql (U)Ordered By: Dylan Cardoza on 03-06-2023 Urobilinogen Ql (U) Normal mg/dl Normal [facility] 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 Albumin mass conc 4.0 g/dL Invalid Interpretation Code [facility] Work Phone: [phone] Alkaline phosphatase (ALP) 85 U/L Invalid Interpretation Code [facility] Work Phone: [phone] ALP enzyme act/vol (Bld) 85 U/L [facility] Work Phone: [phone] ALT enzyme act/vol 13 U/L Invalid Interpretation Code [facility] Work Phone: [phone] Anion gap 13 mmol/L Invalid Interpretation Code [facility] Work Phone: [phone] Anion gap molar conc 13 mmol/L [facility] Work Phone: [phone] AST enzyme act/vol 20 U/L Invalid Interpretation Code [facility] Work Phone: [phone] Bilirubin mass conc mg/dL Invalid Interpretation Code [facility] Work Phone: [phone] Calcium mass conc 9.1 mg/dL Invalid Interpretation Code [facility] Work Phone: [phone] Chloride molar conc 99 mmol/L Invalid Interpretation Code [facility] Work Phone: [phone] Cholesterol in HDL mass conc 37 mg/dL Low [facility] Work Phone: [phone] Cholesterol in LDL mass conc 74 mg/dL Invalid Interpretation Code [facility] Work Phone: [phone] Cholesterol in LDL/Cholesterol in HDL mass ratio 2.00 Invalid Interpretation Code [facility] Work Phone: [phone] Cholesterol mass conc 125 mg/dL Invalid Interpretation Code [facility] Work Phone: [phone] Cholesterol.total/Choles terol in HDL mass ratio 3.38 {ratio} Invalid Interpretation Code [facility] Work Phone: [phone] CO2 22 mmol/L Invalid Interpretation Code [facility] Work Phone: [phone] CO2 ppres (BldV) 22 mmol/L [facility] Work Phone: [phone] Creatinine mass conc 1.00 mg/dL Invalid Interpretation Code [facility] Work Phone: [phone] Erythrocyte distribution width Ratio (RBC) 14.2 % [facility] [employer] Work Phone: [phone] Erythrocytes (RBC) 4.40 10*6/uL Invalid Interpretation Code [facility] Work Phone: [phone] Glucose 96 mg/dL Invalid Interpretation Code [facility] Work Phone: [phone] Glucose mass conc 96 mg/dL [facility] Work Phone: [phone] Hematocrit (HCT) 42.7 % Invalid Interpretation Code [facility] Work Phone: [phone] Hematocrit Volume Fraction (Bld) 42.7 % [facility] [employer] Work Phone: [phone] Hemoglobin mass conc (Bld) 13.9 g/dL Invalid Interpretation Code [facility] Work Phone: [phone] Lipoprotein.pre-beta mass conc 14 mg/dL Invalid Interpretation Code [facility] Work Phone: [phone] MCH 31.6 pg Invalid Interpretation Code [facility] Work Phone: [phone] MCH Entitic mass (RBC) 31.6 pg [facility] Work Phone: [phone] MCHC 32.6 g/dL Invalid Interpretation Code [facility] Work Phone: [phone] MCHC mass conc (RBC) 32.6 g/dL [facility] Work Phone: [phone] MCV 97.0 fL Invalid Interpretation Code [facility] Work Phone: [phone] MCV Entitic volume (RBC) 97.0 fL [facility] Work Phone: [phone] Platelet mean volume Entitic volume (Bld) 12.9 fL High [facility] Work Phone: [phone] Platelets 201 10*3/mm3 Invalid Interpretation Code [facility] Work Phone: [phone] Platelets #/vol (Bld) 201 10*3/mm3 [facility] Work Phone: [phone] PMV by My 12.9 fL High [facility] Work Phone: [phone] Potassium molar conc 4.3 mmol/L Invalid Interpretation Code [facility] Work Phone: [phone] Protein mass conc 6.7 g/dL Invalid Interpretation Code [facility] Work Phone: [phone] RBC #/vol (Bld) 4.40 10*6/uL [facility] Work Phone: [phone] RDW-CA 14.2 % Invalid Interpretation Code [facility] Work Phone: [phone] Sodium molar conc 134 mmol/L Low [facility] Work Phone: [phone] Triglyceride mass conc 71 mg/dL Invalid Interpretation Code [facility] Work Phone: [phone] Urea nitrogen mass conc 11 mg/dL Invalid Interpretation Code [facility] Work Phone: [phone] WBC #/vol (Bld) 10.92 10*3/uL [facility] Work Phone: [phone] WBC (Leukocytes) 10.92 10*3/uL Invalid Interpretation Code [facility] Work Phone: [phone] Office Visiton 05-30-2016 Documentation of current medications (procedure) Done Invalid Interpretation Code [facility] Work Phone: [phone] Protein mass conc Done [facility] Work Phone: [phone] Clinical 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 07-24-2015 Left ventricular Ejection fraction 53 % Invalid Interpretation Code [facility] Work Phone: [phone] Office Visiton 07-14-2015 Tobacco smoking status PRIS Former smoker [facility] Work Phone: [phone] Tobacco use [facility] Former smoker Invalid Interpretation Code [facility] Phone: [phone] Office Visit: [facility] 10-26-19 15 Tobacco smoking status [facility] Never Invalid Interpretation Code [facility] Work Phone: [phone] Replaced Document: [facility] E CG Observationson 10-25-2014 EKG QRS axis -79 deg [facility] Work Phone: [phone] electrocardiogram interpretation Sinus Rhythm -Short SC syndrome Vern = 112-WPW pattern. ABNORMAL Invalid Interpretation Code [facility] Work Phone: [phone] GE use only - for [employer] import when terms are not otherwise specified 465 ms Invalid Interpretation Code [facility] Work Phone: [phone] Interpretation Sinus Rhythm -Short SC syndrome Vern = 112-WPW pattern. ABNORMAL [facility] Work Phone: [phone] P Sandy 69 deg [facility] Work Phone: [phone] P wave axis, electrocardiogram 69 deg Invalid Interpretation Code [facility] Work Phone: [phone] SC Interval 112 ms [facility] Work Phone: [phone] SC interval, electrocardiogram 112 ms Invalid Interpretation Code [facility] Work Phone: [phone] Pulse (Heart Rate) 64 /min Invalid Interpretation Code [facility] Work Phone: [phone] QRS axis, electrocardiogram -79 deg Invalid Interpretation Code [facility] Work Phone: [phone] QRS Duration 148 ms [facility] Work Phone: [phone] QRS duration, electrocardiogram 148 ms Invalid Interpretation Code [facility] Work Phone: [phone] QT Interval new path ms [facility] Work Phone: [phone] QT interval, electrocardiogram new path ms Invalid Interpretation Code [facility] Work Phone: [phone] QTc Saleem 465 ms [facility] Work Phone: [phone] T Sandy 63 deg [facility] Work Phone: [phone] T wave axis, electrocardiogram 63 deg Invalid Interpretation Code [facility] Phone: [phone] Office Visiton 07-01-2014 cardiac risk group C Invalid Interpretation Code [facility] Phone: [phone] General cardiovascular disease 10Y risk [#] [place].Ileana'Agostkathi N/A Invalid Interpretation Code [facility] Phone: [phone] Lab Report: LIVERon 04-16-20 14 Bilirubin.direct mass conc 0.09 mg/dL Normal 0.00-0.30 [facility] 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 Work Phone: [phone] eosinophils as percent of blood leukocytes, manual count 2.7 % Invalid Interpretation Code [facility] Phone: [phone] Lymphocytes/100 leukocytes 34.6 % Invalid Interpretation Code [facility] Work Phone: [phone] Lymphocytes/100 WBC (Bld) 34.6 % [facility] Work Phone: [phone] Monocytes/100 leukocytes 8.2 % Invalid Interpretation Code [facility] Work Phone: [phone] Monocytes/100 WBC (Bld) 8.2 % [facility] Work Phone: [phone] neutrophils, band form as percent of blood leukocytes, manual count 54.1 % Invalid Interpretation Code [facility] Work Phone: [phone] Urea nitrogen/Creatinine mass ratio 12.0 mg/mg Invalid Interpretation Code [facility] Work Phone: [phone] Vital Signs Date Time Vital Sign Value Performing Clinician Faci lity 11-22-2024 14:57-0400 Body height 160.[address] Dylan Cardoza MD Work Phone: [facility] 11-22-2024 14:54-0400 Body mass index (BMI) [Ratio] 24.7 kg/m2 Dr. Dylan Cardoza MD Work Phone: [facility] 11-22-2024 14:54-0400 Body weight 63.[address] Dylan Cardoza MD Work Phone: [facility] 11-22-2024 14:54-0400 Diastolic blood pressure 77 mm[Hg] Dr. Dylan Cardoza MD Work Phone: [facility] 11-22-2024 14:54-0400 Heart rate 67 /min Dr. Dylan Cardoza MD Work Phone: [facility] 11-22-2024 14:54-0400 Respiratory rate 18 /min Dr. Dylan Cardoza MD Work Phone: [facility] 11-22-2024 14:54-0400 SaO2% (BldA) [Mass fraction] 97 % Dr. Dylan Cardoza MD Work Phone: [facility] 11-22-2024 14:54-0400 Systolic blood pressure 122 mm[Hg] Dr. Dylan Cardoza MD Work Phone: [facility] 08-29-2023 11:01-0500 Body height 160.[address] Dylan Cardoza Work Phone: [facility] 08-29-2023 10:59-0500 Body mass index (BMI) [Ratio] 24.6 kg/m2 Dr. Dylan Cardoza Work Phone: [facility] 08-29-2023 10:59-0500 Body weight 63.[address] Dylan Cardoza Work Phone: [facility] 08-29-2023 10:59-0500 Diastolic blood pressure 74 mm[Hg] Dr. Dylan Cardoza Work Phone: [facility] 08-29-2023 10:59-0500 Heart rate 59 /min Dr. Dylan Cardoza Work Phone: [facility] 08-29-2023 10:59-0500 Respiratory rate 18 /min Dr. Dylan Cardoza Work Phone: [facility] 08-29-2023 10:59-0500 SaO2% (BldA) [Mass fraction] 100 % Dr. Dylan Cardoza Work Phone: [facility] 08-29-2023 10:59-0500 Systolic blood pressure 129 mm[Hg] Dr. Dylan Cardoza Work Phone: [facility] 05-30-2016 10:17-0500 BMI (Body Mass Index) 25.78 kg[facility]m2 [facility] Work Phone: 05-30-2016 10:17-0500 BP Diastolic 60 mm[Hg] [facility] Work Phone: 05-30-2016 10:17-0500 BP Systolic 120 mm[Hg] [facility] Work Phone: 05-30-2016 10:17-0500 BSA (Body Surface Area) 1.73 m2 [facility] Work Phone: 05-30-2016 10:17-0500 Pulse (Heart Rate) 60 /min [facility] Work Phone: 05-30-2016 10:17-0500 Respiratory Rate 20 /min Linda DeFinfran [facility] Work Phone: 05-30-2016 10:17-0500 Weight 68.13 kg Linda DeFinis [facility] Work Phone: 10-25-2014 16:18-0400 Heart rate 64 /min Harumi DeFinis [facility] Work Phone: 07-01-2014 14:22-0500 BP Diastolic 64 mm[Hg] Harumi DeFinis [facility] Work Phone: 07-01-2014 14:22-0500 BP Systolic 140 mm[Hg] Harumi DeFinis [facility] Work Phone: 07-01-2014 14:22-0500 BP Systolic 142 mm[Hg] Harumi DeFinis [facility] Work Phone: 07-01-2014 14:22-0500 Pulse (Heart Rate) 72 /min Linda DeFinis [facility] Work Phone: 07-01-2014 14:22-0500 Pulse (Heart Rate) 64 /min Harumi DeFinis [facility] Work Phone: 10-31-2011 14:53-0400 Height 162.56 cm Linda DeFinis [facility] Work Phone: Encounters Encounter Date Encounter Type Care Provider Facility Start: 04-21-2025 End: 04-21-2025 ambulatory Archie Avila Facility:[facility] Start: 01-14-2025 End: 01-14-[address] Dylan Cardoza MD Work Phone: -[facility] Start: 01-14-2025 End: 01-14-[address] Archie Avila MD -[facility] Work Phone: Start: 12-20-2024 Non-patient / Non-visit Dr. Archie Avila MD -[facility] Start: 12-20-2024 End: 12-20-[address] Dylan Cardoza MD Work Phone: -[facility] Start: 12-20-2024 End: 12-20-[address] Dylan Cardoza MD -[facility] Work Phone: Start: 12-20-2024 End: 12-20-2024 ambulatory Dylan Cardoza Facility:[facility] Start: 11-22-2024 End: 11-22-2024 Patient encounter procedure Dylan KONG -[facility] Work Phone: Start: 11-22-2024 End: 11-22-[address] Dylan Cardoza MD Work Phone: [facility] Work Phone: Start: 11-22-2024 End: 11-22-2024 ambulatory Dylan Cardoza Facility:[facility] Start: 11-17-2024 End: 11-17-[address] Dylan Cardoza MD Work Phone: [facility] Work Phone: Start: 11-17-2024 End: 11-17-[address] Dylan Cardoza MD -[facility] Start: 11-17-2024 End: 11-17-2024 ambulatory Dylan Cardoza Facility:[facility] Start: 11-09-2024 End: 11-09-[address] Dylan Cardoza MD Work Phone: [facility] Work Phone: Start: 11-09-2024 End: 11-09-[address] Dylan Cardoza MD -[facility] Start: 11-09-2024 End: 11-09-2024 ambulatory Dylan Cardoza Facility:[facility] Start: 10-15-2024 End: 10-15-2024 ambulatory Archie Avila Facility:[facility] Start: 10-15-2024 End: 10-15-[address] Archie Avila MD -[facility] Work Phone: Start: 07-16-2024 End: 07-16-2024 ambulatory Archie Avila Facility:[facility] Start: 06-04-2024 End: 06-04-2024 ambulatory Dylan Cardoza Facility:[facility] Start: 05-11-2024 End: 05-11-2024 ambulatory Dylan Cardoza Facility:[facility] Start: 10-01-2023 Non-patient / Non-visit Dr. Dylan Cardoza Work Phone: [facility] Work Phone: Start: 10-01-2023 Non-patient / Non-visit Dr. Dylan Cardoza Work Phone: [facility] Start: 10-01-2023 End: 10-01-[address] Dylan Cardoza Work Phone: [facility] Work Phone: Start: 10-01-2023 End: 10-01-[address] [facility] Start: 09-09-2023 Telephone encounter Bolivar flood MD Work Phone: Hematology/Oncology Comment on above: New Patient Start: 09-04-2023 End: 09-04-[address] Dylan Cardoza Work Phone: [facility] Work Phone: Start: 09-04-2023 End: 09-04-[address] Dylan Cardoza Work Phone: [facility] Start: 08-29-2023 End: 08-29-[address] Dylan Cardoza Work Phone: [facility] Work Phone: Start: 08-29-2023 End: 08-29-[address] Dylan Cardoza Work Phone: [facility] Work Phone: Start: 08-13-2023 End: 08-13-[address] [facility] Start: 07-30-2023 End: 07-30-[address] [facility]: Start: 07-11-2023 End: 07-11-[address] Dylan Cardoza Work Phone: [facility] Work Phone: Start: 05-22-2023 End: 05-22-[address] Dylan Cardoza Work Phone: [facility] Work Phone: Start: 05-16-2023 End: 05-16-[address] Dylan Cardoza Work Phone: [facility] Work Phone: Start: 05-08-2023 End: 05-08-2023 ambulatory [facility] Work Phone: Start: 05-08-2023 End: 05-08-2023 Patient encounter procedure [facility] Start: 03-06-2023 End: 03-06-2023 ambulatory [facility] Work Phone: Start: 03-06-2023 End: 03-06-2023 Patient encounter procedure [facility] Work Phone: Start: 01-02-2022 End: 01-02-[address] Dylan Cardoza Work Phone: [facility] Start: 11-30-2021 End: 06-10-[address] Dylan Cardoza Work Phone: [facility] Procedures Date Procedure Procedure Detail Performing Clinician Start: 11-22-2024 X-ray of chest, PA a nd lateral views Dr. Dylan Cardoza MD Work Phone: Start: 11-09-2024 Total iron binding capacity measurement Dr. Dylan Cardoza MD Work Phone: Start: 10-01-2023 Cardiovascular stres s test using pharmacologic stress agent Dr. Dylan Cardoza Work Phone: Start: 05-22-[address] Dylan sarmiento Work Phone: Start: 11-21-2016 End: 12-20-2016 *Hepatic Function Panel Conchita Lee Start: 11-21-2016 End: 12-20-2016 Lipid panel [AGGREGATE] Conchita Lee Start: 07-11-2016 End: 07-17-2016 Lipid panel [AGGREGATE] Conchita Lee Start: 05-30-2016 End: 11-14-2016 Follow Up Appt 6 months Conchita Lee Start: 05-30-2016 End: 11-14-2016 Icd device progr eval, mult Archie Avila MD Start: 05-30-2016 End: 05-30-2016 MMM Archie Avila MD Start: 05-30-2016 End: 11-14-2016 Pacer Clinic Archie Avila MD Start: 12-22-2015 End: 01-09-2016 *Hepatic Function Panel Conchita Lee Start: 12-22-2015 End: 01-09-2016 Lipid panel [AGGREGATE] Conchita Lee Start: 10-03-2015 End: 11-14-2016 Follow Up Appt 3 months Conchita Lee Start: 10-03-2015 End: 11-14-2016 Icd device progr destiny dotson MD Start: 10-03-2015 End: 11-14-2016 Pacer Clinic Archie Avila MD Start: 07-14-2015 End: 07-24-2015 Echocardiography Archie Avila MD Start: 07-14-2015 End: 07-14-2015 Follow Up Appt 6 months Conchita Lee Start: 07-14-2015 End: 07-14-2015 [facility] Archie Avila MD Start: 05-23-2015 End: 11-14-2016 Follow Up Appt 3 months Regina Soto PA-C Work Phone: Start: 05-23-2015 End: 11-14-2016 Icd device progr destiny dotson PA-C Work Phone: Start: 05-23-2015 End: 11-14-2016 Pacer Clinic Regina Soto PA-C Work Phone: Start: 02-14-2015 End: 11-14-2016 Follow Up Appt 3 months Conchita Lee Start: 02-14-2015 End: 02-14-2015 Icd device progr destiny dotson MD Start: 02-14-2015 End: 11-14-2016 Pacer Clinic Archie Avila MD Start: 11-07-2014 End: 11-14-2016 Follow Up Appt 3 months Regina Soto PA-C Work Phone: Start: 11-07-2014 End: 11-14-2016 Icd device progr eval, mult Regina Soto PA-C Work Phone: Start: 11-07-2014 End: 11-14-2016 Pacer Clinic Regina Soto PA-C Work Phone: Start: 10-25-2014 End: 10-25-2014 [employer] Regina Soto PA-C Work Phone: Start: 10-25-2014 End: 10-26-2014 Documentation of current medications Regina Soto PA-C Work Phone: Start: 10-25-2014 End: 10-25-2014 Electrocardiogram, complete Regina Soto PA-C Work Phone: Start: 10-25-2014 End: 10-25-2014 Follow Up Appt 6 months Regina Soto PA-C Work Phone: Start: 10-17-2014 End: 07-18-2015 *Hepatic Function Panel Conchita Lee Start: 10-17-2014 End: 07-18-2015 Lipid panel [AGGREGATE] Conchita Lee Start: 08-23-2014 Colonoscopy Bolivar flood MD Work Phone: Start: 08-01-2014 End: 10-19-2014 Follow Up Appt 3 months Regina Soto PA-C Work Phone: Start: 08-01-2014 End: 10-19-2014 Icd device progr eval, mult Regina Soto PA-C Work Phone: Start: 08-01-2014 End: 10-19-2014 Pacer Clinic Regina Soto PA-C Work Phone: Start: 07-01-2014 End: 07-01-2014 Follow Up Appt 4 months Conchita Lee Start: 07-01-2014 End: 07-01-2014 MAYO Avila MD Start: 04-15-2014 End: 10-19-2014 *Hepatic Function Panel Conchita Lee Start: 04-15-2014 End: 04-18-2014 Follow Up Appt 6 months Conchita Lee Start: 04-15-2014 End: 10-19-2014 Lipid panel [AGGREGATE] Conchita Lee Start: 04-15-2014 End: 04-18-2014 MAYO Avila MD Start: 01-28-2014 End: 10-19-2014 Follow Up Appt 3 months Regina Soto PA-C Work Phone: Start: 01-28-2014 End: 01-28-2014 Icd device progr destiny dotson PA-C Work Phone: Start: 01-28-2014 End: 10-19-2014 Pacer Clinic Regina Soto PA-C Work Phone: Start: 01-21-2014 End: 04-18-2014 *Hepatic Function Panel Conchita Lee Start: 01-21-2014 End: 04-18-2014 Lipid panel [AGGREGATE] Conchita Lee Start: 10-14-2013 End: 10-19-2014 Follow Up Appt 3 months Conchita Lee Start: 10-14-2013 End: 10-19-2014 Icd device progr destiny dotson MD Start: 10-14-2013 End: 10-19-2014 Pacer Clinic Archie Avila MD Start: 08-17-2013 End: 08-17-2013 [employer] Regina Soto PA-C Work Phone: Start: 08-17-2013 [...] Start: 07-16-2013 End: 07-16-2013 Icd device progr eval, mult Regina Soto PA-C Work Phone: Start: 07-16-2013 End: 08-06-2013 Pacer Clinic Regina Soto PA-C Work Phone: Start: 03-11-2013 End: 08-06-2013 Follow Up Appt 3 months Kyler Herrera MD Start: 03-11-2013 End: 03-11-2013 Icd device progr eval, mult Kyler Herrera MD Start: 03-11-2013 End: 08-06-2013 Pacer Clinic [...] 08-06-2013 Icd device progr eval, mult Archie Avila MD Start: 11-26-2012 End: 08-06-2013 Pacer Clinic Archie Avila MD Start: 08-21-2012 End: 08-31-2012 *Hepatic Function Panel Conchita Lee Start: 08-21-2012 End: 08-06-2013 [employer] Archie Avila MD Start: 08-21-2012 End: 08-06-2013 Device Interrogation Archie Avila MD Start: 08-21-2012 End: 08-06-2013 Follow Up Appt 6 months Conchita Lee Start: 08-21-2012 End: 08-31-2012 Lipid panel [AGGREGATE] Conchita Lee Start: 08-21-2012 End: 08-31-2012 Nuclear stress test -adenosine Archie Avila MD Start: 10-31-2011 End: 10-31-2011 Follow Up Appt 6 months Conchita Lee Start: 12-12-2010 Implantation of auto matic cardiac defibrillator IMPLANTATION OF DEFIBRILLATOR, HX OF Linda Solano Start: 10-29-2010 History of placement of stent for coronary artery disease History of coronary artery stent placement Dylan Mccormick MANAGER SCHEDULING-C Comment on above: WFB-FUT-Vyxh RCA w/ 3.5 x 12 mm Xience Stent and CHARLES-Mid LAD 3.0 x 18 mm Xience Stent Start: 10-04-2010 Lipid 1996 panel - S mell or Plasma Bolivar Willis MD Work Phone: Plan of Treatment Date Care Activity Detail Author Start: 06-23-2023 Advance Directive Discussion Advance Directive Discussion [facility] Start: 06-23-2023 Depression Assessment Depression Assessment [facility] Start: 02-21-2023 Covid-19 Vaccine () Covid-19 Vaccine () [facility] Start: 02-21-2023 Influenza vaccination Influenza Vaccine (#1) [facility] Start: 2021 Pneumococcal Vaccine: 65+ (1 of 1 - PCV) Pneumococcal Vaccine: 65+ (1 of 1 - PCV) [facility] Start: 06-13-2017 End: 12-20-2016 *Hepatic Function Panel *Hepatic Function Panel [facility] Work Phone: Start: 06-13-2017 End: 12-20-2016 Lipid panel [AGGREGATE] *Lipid Profile CC PCP [facility] Work Phone: Start: 01-15-2017 End: 07-18-2016 *Hepatic Function Panel *Hepatic Function Panel [facility] Work Phone: Start: 01-15-2017 End: 07-18-2016 Lipid panel [AGGREGATE] *Lipid Profile CC PCP [facility] Work Phone: Start: 11-21-2016 End: 12-20-2016 *Hepatic Function Panel *Hepatic Function Panel [facility] Work Phone: Start: 11-21-2016 End: 12-20-2016 Lipid panel [AGGREGATE] *Lipid Profile CC PCP [facility] Work Phone: Start: 07-11-2016 End: 07-17-2016 Lipid panel [AGGREGATE] *Lipid Profile CC PCP [facility] Work Phone: Start: 05-30-2016 End: 11-14-2016 Follow Up Appt 6 months Follow Up Appt 6 months [facility] Work Phone: Start: 05-30-2016 End: 05-30-2016 MMM MMM [facility] Work Phone: Start: 05-30-2016 End: 11-14-2016 [facility] [employer] Work Phone: Start: 2016 RSV Vaccine (1 - 1-dose 60+ series) RSV Vaccine (1 - 1-dose 60+ series) [facility] Start: 12-22-2015 End: 01-09-2016 *Hepatic Function Panel *Hepatic Function Panel [employer] Work Phone: Start: 12-22-2015 End: 01-09-2016 Lipid panel [AGGREGATE] *Lipid Profile CC PCP [facility] Work Phone: Start: 10-05-2015 Lipid panel Lipid Screening [facility] Start: 10-03-2015 End: 11-14-2016 Follow Up Appt 3 months Follow Up Appt 3 months [facility] Work Phone: Start: 10-03-2015 End: 11-14-2016 [facility] [employer] Work Phone: Start: 08-24-2015 Screening for malignant neoplasm of colon [facility] Start: 07-14-2015 End: 07-14-2015 Echocardiography Echocardiogram (complete) [facility] Work Phone: Start: 07-14-2015 End: 07-14-2015 Follow Up Appt 6 months Follow Up Appt 6 months [facility] Work Phone: Start: 07-14-2015 End: 07-14-2015 MMM MMM [facility] Work Phone: Start: 05-23-2015 End: 11-14-2016 Follow Up Appt 3 months Follow Up Appt 3 months [facility] Work Phone: Start: 05-23-2015 End: 11-14-2016 Pacer Clinic [facility] Work Phone: Start: 02-14-2015 End: 11-14-2016 Follow Up Appt 3 months Follow Up Appt 3 months [facility] Work Phone: Start: 02-14-2015 End: 11-14-2016 Pacer Clinic Pacer Clinic [facility] Work Phone: Start: 11-07-2014 End: 11-14-2016 Follow Up Appt 3 months Follow Up Appt 3 months [facility] Work Phone: Start: 11-07-2014 End: 11-14-2016 Pacer Clinic Pacer Clinic [facility] Work Phone: Start: 10-25-2014 End: 10-25-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 [facility] Work Phone: Start: 10-25-2014 End: 10-25-2014 Electrocardiogram, complete EKG (In office) [facility] Work Phone: Start: 10-25-2014 End: 10-25-2014 Follow Up Appt 6 months Follow Up Appt 6 months [facility] Work Phone: Start: 10-17-2014 End: 07-18-2015 *Hepatic Function Panel *Hepatic Function Panel [facility] Work Phone: Start: 10-17-2014 End: 07-18-2015 Lipid panel [AGGREGATE] *Lipid Profile CC PCP [facility] Work Phone: Start: 08-01-2014 End: 10-19-2014 Follow Up Appt 3 months Follow Up Appt 3 months [facility] Work Phone: Start: 08-01-2014 End: 10-19-2014 Pacer Clinic [facility] Work Phone: Start: 07-01-2014 End: 07-01-2014 Follow Up Appt 4 months Follow Up Appt 4 months [facility] Work Phone: Start: 07-01-2014 End: 07-01-2014 MMM MMM [facility] Work Phone: Start: 04-15-2014 End: 10-19-2014 *Hepatic Function Panel *Hepatic Function Panel [facility] Work Phone: Start: 04-15-2014 End: 04-18-2014 Follow Up Appt 6 months Follow Up Appt 6 months [facility] Work Phone: Start: 04-15-2014 End: 10-19-2014 Lipid panel [AGGREGATE] *Lipid Profile CC PCP [facility] Work Phone: Start: 04-15-2014 End: 04-18-2014 MMM MMM [facility] Work Phone: Start: 01-28-2014 End: 10-19-2014 Follow Up Appt 3 months Follow Up Appt 3 months [facility] Work Phone: Start: 01-28-2014 End: 10-19-2014 Pacer Clinic [facility] Work Phone: Start: 01-21-2014 End: 04-18-2014 *Hepatic Function Panel *Hepatic Function Panel [facility] Work Phone: Start: 01-21-2014 End: 04-18-2014 Lipid panel [AGGREGATE] *Lipid Profile CC PCP [facility] Work Phone: Start: 10-28-2013 Diabetes Screening Diabetes Screening [facility] Start: 10-14-2013 End: 10-19-2014 Follow Up Appt 3 months Follow Up Appt 3 months [facility] Work Phone: Start: 10-14-2013 End: 10-19-2014 Pacer Clinic Pacer Clinic [facility] Work Phone: Start: 08-17-2013 End: 08-17-2013 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 [facility] Work Phone: Start: 08-17-2013 End: 08-17-2013 Follow Up Appt 6 months Follow Up Appt 6 months [facility] Work Phone: Start: 08-17-2013 End: 08-17-2013 Follow Up Appt Other Follow Up Appt Other [facility] Work Phone: Start: 07-24-2013 End: 08-20-2013 *Hepatic Function Panel *Hepatic Function Panel [facility] Work Phone: Start: 07-24-2013 End: 08-20-2013 Lipid panel [AGGREGATE] *Lipid Profile CC PCP [facility] Work Phone: Start: 07-16-2013 End: 08-06-2013 Follow Up Appt 3 months Follow Up Appt 3 months [facility] Work Phone: Start: 07-16-2013 End: 08-06-2013 Pacer Clinic [facility] Work Phone: Start: 03-11-2013 End: 08-06-2013 Follow Up Appt 3 months Follow Up Appt 3 months [facility] Work Phone: Start: 03-11-2013 End: 08-06-2013 Pacer Clinic [facility] Work Phone: Start: 02-19-2013 End: 02-23-2013 *Hepatic Function Panel *Hepatic Function Panel [facility] Work Phone: Start: 02-19-2013 End: 03-01-2013 Echocardiography Echocardiogram (complete) [facility] Work Phone: Start: 02-19-2013 End: 02-19-2013 Follow Up Appt 6 months Follow Up Appt 6 months [facility] Work Phone: Start: 02-19-2013 End: 02-23-2013 Lipid panel [AGGREGATE] *Lipid Profile CC PCP [facility] Work Phone: Start: 02-19-2013 End: 02-19-2013 MMM MMM [facility] Work Phone: Start: 01-21-2013 End: 02-23-2013 *Hepatic Function Panel *Hepatic Function Panel [facility] Work Phone: Start: 01-21-2013 End: 02-23-2013 Lipid panel [AGGREGATE] *Lipid Profile [facility] Work Phone: Start: 11-26-2012 End: 08-06-2013 Follow Up Appt 3 months Follow Up Appt 3 months [facility] Work Phone: Start: 11-26-2012 End: 08-06-2013 Pacer Clinic Pacer Clinic [facility] Work Phone: Start: 08-21-2012 End: 08-31-2012 *Hepatic Function Panel *Hepatic Function Panel [facility] Work Phone: Start: 08-21-2012 End: 08-06-2013 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 [facility] Work Phone: Start: 08-21-2012 End: 08-06-2013 Device Interrogation Device Interrogation [facility] Work Phone: Start: 08-21-2012 End: 08-06-2013 Follow Up Appt 6 months Follow Up Appt 6 months [facility] Work Phone: Start: 08-21-2012 End: 08-31-2012 Lipid panel [AGGREGATE] *Lipid Profile [facility] Work Phone: Start: 08-21-2012 End: 08-21-2012 Nuclear stress test -adenosine Nuclear stress test -adenosine [facility] Work Phone: Start: 10-31-2011 End: 10-31-2011 Follow Up Appt 6 months Follow Up Appt 6 months [facility] Work Phone: Start: 2011 Prostate specific antigen measurement Prostate Cancer Screening Discussion [facility] Start: 2006 Shingrix Vaccine (1 of 2) Shingrix Vaccine (1 of 2) [facility] Start: 2001 Screening for malignant neoplasm of colon [facility] Start: 1975 Urine microalbumin profile DTaP,Tdap,Td Vaccine (1 - Tdap) [facility] Start: 1956 Abdominal aortic aneurysm screening Abdominal Aortic Aneurysm Screening [facility] Basic metabolic 2008 panel with ionized calcium - Serum or Plasma [facility] CBC W Auto Different ial panel - Blood [facility] Natriuretic peptide. B prohormone N-Terminal [Mass/volume] in Serum or Plasma [facility] NM Heart Views W str ess and W radionuclide IV [facility] Patient Education [facility] [employer] [facility] Work Phone: Heart [facility] XR Chest PA and Lateral [facility] Payers Date Payer Category Payer Medicare [id number] 2024 Self-pay [id number] 2024 Medicare [id number] 2022 Medicare HUMANA MEDICARE HUMANA GOLD PLUS [id number] 2022-Present [phone] [address] [address] [place] [address] HMO [id number] 2021 Medicare [id number] Unknown [id number] Unknown [id number] Unknown [id number] Unknown [id number] Unknown [id number] Unknown [id number] Unknown [id number] Unknown [id number] Unknown [id number] Unknown [id number] Unknown [id number] Unknown [id number] Unknown [id number] Social History Date Type Detail Facility Start: 05-10-2021 End: 08-29-2023 Tobacco smoking status [facility] Unknown if ever smoked [facility] Start: 01-24-2020 Non-smoker [facility] Start: 1955 Sex Assigned At Male [facility] Start: 08-11-2014 End: 03-01-2024 Tobacco smoking status PRIS Ex-smoker [facility] History of tobacco use Current smoker [facility] History of tobacco use Cigarette Smoker [facility] Start: 08-11-2014 End: 02-06-2022 Cigarettes smoked current (pack per day) - Reported 0.5 [facility] Start: 02-06-2022 Alcohol intake Current drinke r of alcohol (finding) [facility] Start: 02-06-2022 Tobacco use panel [facility] Start: 1955 Sex Assigned At Not on file C [facility] Medical Equipment Procedure Code Equipment Code Equipment Original Text Equipment Identifier Dates ([id number]) Cardiac resynchr onization therapy implantable defibrillator ()[id number] [facility] Start: 05-10-2021 Clinical Notes 10-16-2010 to 11-22-2024 Note Date & Type Note Facility 11-22-2024 Evaluation note Diagnosis Onset Date Resolution Dyspnea acute November 22, 2024 2:50pm Biventricular ICD (implantable cardioverter-defibri llator) in place October 26, 2010 chronic [facility] 2nd, 2025 2:50pm Essential (primary) hypertension chronic November 22, 2024 2:50pm History of coronary artery stent placement October 29, 2010 resolved November 22, 2024 2:50pm Ischemic cardiomyopathy resolved November 22, 2024 2:50pm [facility] Work Phone: 1(966) 982-984506-02-2025 Radiology Diagnostic study note [facility] Imaging Services [address] [place] [address] Chest PA and Lateral MR#: [id number] Acct: [id number] Name: CARA FONTENOT Rep #: [id number] : 1955 M 69 From: Sarabjit Mattson DO PCP: Dr. Dylan Cardoza MD Status: RE G CLI Study:Chest PA and Lateral Date of Exam: 11/22/24 Exam# [id number] Ordering Dr: Kleber Mccormick NP MANAGER SCHEDULING-C PROCEDURE: CHEST PA AND LATERAL 11/22/2024 REASON FOR EXAM: SOB, ABNORMAL LUNG EXAM TECHNIQUE: Frontal and lateral views of the chest. COMPARISON: Low-dose CT examination of the chest dated 06/04/2024 FINDINGS: Hardware: A radiopaque pacemaker device is identified in the left pectoral region with 2 intact leads in satisfactory position. Heart: Heart size and configuration are within normal limits. Arteriosclerotic vascular disease of the aorta is noted. Mediastinum: Pulmonary vasculature and hilar structures are unremarkable. Mediastinum appears unremarkable. Lungs: There is no atelectasis, consolidation, effusion, pneumonic infiltrate, lung contusion or pneumothorax. Lungs are hyperinflated with flattening of the hemidiaphragms. There is increased lucencyin the upper lung [place]. These findings are compatible with emphysematous changes. Bilateral apical pleural thickening is seen. Again noted is a 3 mm calcified granuloma in the right upper lobe laterally. There are some parenchymal scarring seen in the lower lung [place]. Bones: Degenerative changes of the lumbar spine. RAD/Chest PA and Lateral IMPRESSION: Emphysematous lung changes are noted. Bilateral apical pleural thickening. Stable calcified granuloma right lobe. Parenchymal scarring lung bases. Reading Location: [id number] CC: MANAGER SCHEDULINGMike Mccormick; Dr. Dylan Cardoza MD ~ [place] Inspector: Signed [facility]06-02-2025 Progress [facility] [address] [place] [address] OFFICE VISIT Date of Service: 11/22/24 MR#: [id number] Acct: [id number] Name: CARA FONTENOT Rep #: [id number] : 1955 Provider: DILAN Mccormick Age/Sex: 69/M [place] [facility] [place]: Signed HPI HPI History of Present Illness Details: This is a 69-year-old male who presents to the office today for a cardiovascularout-patient visit. He was last seen in our office in 2020. He has a history of coronary artery disease with an ostial right coronary artery stenosis. He also had a left anterior descending artery with no significant dise ase. He had a witnessed cardiac arrest and had an ICD placed for secondary prevention in 2010. He denies chest, arm, jaw, or neck discomfort. He denies palpitations. He denies bilateral lower extremity edema. He denies claudication. He states shortness of breath with activity and shortness of breath at rest. His shortnessof breath with activity is not new. His shortness of breath at rest is when he lies flat. He denies PND. He denies chronic cough. He denies significant, sudden weight gain. He denies lightheadedness, dizziness, near-syncope, or syncope. He denies blood in urine, blood instool, or epistaxis. He denies fever with chills. He denies myalgia. He denies fatigue. His exercise level has remained stable. He states he walks daily. 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 Is patient in pain?: No Allergies No Known Allergies Allergy (Verified 11/22/24 14:54) Medications ?Medication ?Instructions ?Recorded ?Confirmed ?Type aspirin 325 mg tablet 325 mg PO DAILY@0800 #90 tab s 02/27/21 11/22/24 Rx nitroglycerin 0.4 mg sublingual 0.4 mg sublingual Q5M PRN Chest 03/01/24 11/22/24 Rx tablet Pain #25 tabs atorvastatin 80 mg tablet 80 mg PO QHS #90 TABLETS 06/1611/22/24 Rx carvedilol 25 mg tablet 25 mg PO BID #180 TABLETS 11/22/24 Rx clopidogrel 75 mg tablet 75 mg PO DAILY #90 TABLETS 0 07/04/24 11/22/24 Rx lisinopril 10 mg tablet 10 mg PO DAILY #90 TABLETS 0 07/04/24 11/22/24 Rx dapagliflozin propanediol 10 mg 10 mg PO DAILY PRN SOB #30 tabs 11/22/24 11/22/24 Rx tablet (Farxiga) furosemide 40 mg tablet (Lasix) 40 mg PO DAILY PRN eulogio ma #90 tabs 11/22/24 11/22/24 Rx Have you fallen in the past year?: No PFSH Medical History Nicotine dependence Peripheral vascular occlusive disease Cardiac arrest with ventricular fibrillation (10/03/10) Essential (primary) hypertension Ischemic cardiomyopathy History of myocardial infarction Personal history of colonic polyps Surgical History History of angioplasty of peripheral vessel (10/29/10) History of left heart catheterization (10/25/10) Biventricular ICD (implantable cardioverter-defibrillator) in place (10/26/10) History of coronary artery stent placement (10/29/10) Family History Father Heart disease Social History (Updated 03/01/24 @ 09:14 by Xena Cagle) Smoking Status: Former smoker quit date: 06/23/13 Tobacco: How many years used: 35 alcohol intake: current alcohol intake frequency: a few times a month substance use type: does not use caffeine: Yes Type: coffee Number of servings: 1 ROS Const Const: Negative for fatigue, weakness, headache(s) or frequent falls Eyes Eyes: Negative for blurry vision ENT ENT: Negative for headache(s), dizziness or Nosebleed/epistaxis Cardio Chest Pain: No Palpitations: No Edema: None Muscle aches with walking: None Resp Respiratory: Positive for SOB with activity and SOB at rest; Negative for SOB orthopneaundefinedSOB lying down GI GI: Negative nausea, vomiting, heartburn, bright, red blood in stools or black,tarry stools : Negative for hematuria Musc Musc: Negative for muscle aches/ myalgia Skin Skin: Negative non-healing lesions or rash Neuro Neuro: Negative for dizziness, lightheadedness, near syncope, syncope, frequent falls, headache(s),weakness or blurry vision Endo Endo: Negative for fatigue Allergy Allergy/Immunology: Negative for rash Cardiology Exam Const Appearance: cooperative, healthy appearing, comfortable and no acute distress Nutritional Appearance: average body habitus and well nourished Orientation: alert, awake and oriented x3 Head Head: normal to inspection Ears: hearing grossly normal bilaterally Nose: external nose normal Face and Sinus: face symmetric Mouth: moist mucous membranes Eyes General: appearance normal, both eyes and all related structures Eyelids: eyelids normal EOM: EOM intact bilaterally Neck Neck: normal visual inspection and no JVD Carotids: normal carotid upstroke Chest Chest inspection: normal inspection of the chest, symmetric chest movement and normal respiratory effort; Negative cough Auscultation: Bilateral: Inspiratory Wheezes and Expiratory Wheezes Cardio Rate: regular rate Rhythm: regular rhythm Heart sounds: S1 normal and S2 normal; Negative rub, gallop or murmur GI GI: normal to inspection Neuro General: patient alert, patient awake, patient oriented x3 and CN's II-XI intactbilaterally Skin Skin: no rashes or lesions noted Extremities Pulses: Normal: Right Posterior Tibial Pulse, Left Posterior Tibial Pulse, RightRadial Pulse and Left Radial Pulse Lower Extremity Edema: None: Bilateral Psych Psychological: normal affect Supplemental Info Supplemental Information Stress test 10/01/2023: Conclusion: Normal pharmacologic myocardial perfusion stress test. Preserved ejection fraction. Echocardiogram 10/01/2023: Interpretation Summary Normal LV size. Left ventricular systolic function is normal. The estimated ejection fraction is 65 %. Echogenic filamentous structure noted on the right atrial lead. Recommend further investigation. Pulmonary artery systolic pressure is 46 mmHg. Echocardiogram 07/24/2015: Interpretation Summary Normal LV size. The estimated ejection fraction is 53 %. Transmitral and pulmonary venous doppler flow suggestive of impaired relaxation of left ventricle Mild (1+) tricuspid valve insufficiency. Pulmonary artery systolic pressure is 30 mmHg. Compared to prior study, there is no significant change. Labs: LDL Cholesterol 62 mg/dL (0-130) HDL Cholesterol 37 mg/dL (40-) L Cholesterol 108 mg/dL (<=200) Triglycerides 81 mg/dL (-199) Diagnostics: No Data to Display Pulmonary: No Data to Display Past Visits: Cardiology Visit 11/22/24 Assessment and Plan Assessment and Plan (1) History of coronary artery stent placement: Status: Resolved Comment: [id number] RCA w/ 3.5 x 12 mm Xience Stent and CHARLES-Mid LAD 3.0 x 18 mm Xience Stent Plan: Patient has a history of coronary artery disease with stent placement to his proximal RCA and mid LAD. Stress test in September 2023 was negative for ischemia and showed a preserved ejection fraction. This appears stable. We will continue to monitor and not make any medication regimen changes. We will continue to promote risk factor and lifestyle modification. He wishes to continue Aspirin 325mg rather than change to 81mg. He wishes to continue Plavix despite being greater than 1 year stenting. Lipid panel from 11/09/2024 showed total cholesterol: 108, HDL: 37, triglycerides: 81, and LDL: 55. (2) Ischemic cardiomyopathy: Status: Resolved Plan: Ischemic cardiomyopathy: Echocardiogram 10/01/2023-EF: 65%, 07/24/2015?EF: 53% Twelve-lead [id number] pacemaker at 61 bpm [place] [employer] Functional Class: 1 ACC/AHA stage: C Guideline Directed Medical Therapy: Carvedilol 25 mg p.o. twice daily Lasix 40 mg p.o. daily PRN Lisinopril 10 mg p.o. daily He is pending echocardiogram later this month. His HFI value is noted to be at 12 on 11/18/2024. Will add PRN Lasix 40 for three days. Will add Farxiga 10mg PO daily. On physical exam, he is noted to inspiratory and expiratory wheeze. Will proceed wit chest x-ray and laboratory testing to help guidefurther. (3) Biventricular ICD (implantable cardioverter-defibrillator) in place: Status: Chronic Plan: Device report on 10/15/2024 showed RA pacing 24%, RV pacing 93%, and LV pacing 93%. Battery life noted be 7 years and 6 months. 4 atrial high rate episodes detected with longest episode lasting 8 seconds, which comprised of 1% cumulative atrial arrhythmia burden, 3 and 3 nonsustained ventricular tach ycardia episodes consistent with SVT and NSVT. Heart logic index noted to be 10. He is pending repeat echocardiogram. (4) Essential (primary) hypertension: Status: Chronic Plan: Patient's blood pressure is well-controlled. We will continue to monitor. We will not make any medication regimen changes. (5) Dyspnea: Status: Acute Plan: This is one of his main concerns today. He denies this to be worsening with activity. He will proceed with laboratory testing to help assess anemia or congestive heart failure component. He will proceed with chest x-ray to help guidepulmonary component further. Depending on results, further recommendation be made. Will await repeat echocardiogram for further evaluation as well. Orders: Orders Basic Metabolic Profile (BMP) Today I10 - Essential (primary) hypertension, I25.5 - Ischemic cardiomyopathy, R06.00 - Dyspnea, unspecified, Z95.5 - Presenceof coronary angioplasty implant and graft, Z95.810 - Presence of automatic (implantable) cardiac defibrillator CBC W/Diff, Automated Today I10 - Essential (primary) hypertension, I25.5 - Ischemic cardiomyopathy, R06.00 - Dyspnea, unspecified, Z95.5 - Presence of coronary angioplasty implant and graft, Z95.810- Presence of automatic (implantable) cardiac defibrillator Pro- Brain NATRIURETIC PEPTIDE Today I10 - Essential (primary) hypertension, I25.5 - Ischemic cardiomyopathy, R06.00 - Dyspnea, unspecified, Z95.5 - Presenceof coronary angioplasty implant and graft,Z95.810 - Presence of automatic (implantable) cardiac defibrillator Chest PA and Lateral Today I10 - Essential (primary) hypertension, I25.5 - Ischemic cardiomyopathy,R06.00 - Dyspnea, unspecified, Z95.5 - Presence of coronary angioplasty implant and graft, Z95.810 - Presence of automatic (implantable) cardiac defibrillator Medications: New dapagliflozin propanediol (Farxiga) 10 mg PO DAILY PRN 30 tabs 0RF SOB Refilled furosemide (Lasix) 40 mg PO DAILY PRN 90 tabs 3RF edema Plan Details Additional Comments: Thank you for allowing us to participate in the patients plan of care, if you have any questions please do not hesitate to call. Plan was reviewed with patient/family member along with red flag symptoms. Understanding was acknowledged. Questions were answered to apparent satisfaction. This note was generated using a voice recognition system and there may be incorrect words, spellingor punctuation that were not noted when reviewing the office note prior to saving. Portions of this documentation were copied and pasted from previous office visitnotes to provide a cohesive continuity of the history. The note has been reviewed, edited, and updated, as necessary. 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) Coding Level of Care Code Off vis,est,level 4 Diagnoses History of coronary artery stent placement Z95.5 Ischemic cardiomyopathy I25.5 Biventricular ICD (implantable cardioverter-defibrillator) in place Z95.810 Essential (primary) hypertension I10 Dyspnea R06.00 Coding Level of Care Code Off vis,est,level 4 Diagnoses History of coronary artery stent placement Z95.5 Ischemic cardiomyopathy I25.5 Biventricular ICD (implantable cardioverter-defibrillator) in place Z95.810 Essential (primary) hypertension I10 Dyspnea R06.00 Clinical Quality Measures Falls Risk Screening/Assistive Devices Have you fallen in the past year?: No 11/22/24 1534 P MANAGER SCHEDULING-C> Date _ Dylan Mccormick MANAGER SCHEDULING MANAGER SCHEDULING-C Cosigner Signature: Date (if applicable) CC: Dr. Dylan Cardoza MD ~ [facility]06-02-2025 Progress note Author Dylan Mccormick [facility] Note Date/Time November 22, 2024 3:33p m [facility] [address] [place] [address]. [address] [place], [place] [address] OFFICE VISIT Date of Service: 11/22/24 MR#: [id number] Acct: [id number] Name: CARA FONTENOT Rep #: [id number] : 1955 Provider: DILAN Mccormick Age/Sex: 69/M [place] [facility] [place]: Signed HPI HPI History of Present Illness Details: This is a 69-year-old male who presents to the office today for a cardiovascularout-patient visit. He was last seen in our office in 2020. He has a history of coronary artery disease with an ostial right coronary artery stenosis. He also had a left anterior descending artery with no significant disease. He had a witnessed cardiac arrest and had an ICD placed for secondary prevention in 2010. He denies chest, arm, jaw, or neck discomfort. He denies palpitations. He denies bilateral lower extremity edema. He denies claudication. He states shortness of breath with activity and shortness of breath at rest. His shortnessof breath with activity is not new. His shortness of breath at rest is when he lies flat. He denies PND. He denies chronic cough. He denies significant, sudden weight gain. He denies lightheadedness, dizziness, near-syncope, or syncope. He denies blood in urine, blood in stool, or epistaxis. He denies fever with chills. He denies myalgia. He denies fatigue. His exercise level has remained stable. He states he walks daily. 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 Is patient in pain?: No Allergies No Known Allergies Allergy (Verified 11/22/24 14:54) Medications ?Medication ?Instructions ?Recorded ?Confirmed ?Type aspirin 325 mg tablet 325 mg PO DAILY@0800 #90 tab s 02/27/21 11/22/24 Rx nitroglycerin 0.4 mg sublingual 0.4 mg sublingual Q5M PRN Chest 03/01/24 11/22/24 Rx tablet Pain #25 tabs atorvastatin 80 mg tablet 80 mg PO QHS #90 TABLETS 06/1611/22/24 Rx carvedilol 25 mg tablet 25 mg PO BID #180 TABLETS 11/22/24 Rx clopidogrel 75 mg tablet 75 mg PO DAILY #90 TABLETS 0 07/04/24 11/22/24 Rx lisinopril 10 mg tablet 10 mg PO DAILY #90 TABLETS 0 07/04/24 11/22/24 Rx dapagliflozin propanediol 10 mg 10 mg PO DAILY PRN SOB #30 tabs 11/22/24 11/22/24 Rx tablet (Farxiga) furosemide 40 mg tablet (Lasix) 40 mg PO DAILY PRN eulogio ma #90 tabs 11/22/24 11/22/24 Rx Have you fallen in the past year?: No PFSH Medical History Nicotine dependence Peripheral vascular occlusive disease Cardiac arrest with ventricular fibrillation (10/03/10) Essential (primary) hypertension Ischemic cardiomyopathy History of myocardial infarction Personal history of colonic polyps Surgical History History of angioplasty of peripheral vessel (10/29/10) History of left heart catheterization (10/25/10) Biventricular ICD (implantable cardioverter-defibrillator) in place (10/26/10) History of coronary artery stent placement (10/29/10) Family History Father Heart disease Social History (Updated 03/01/24 @ 09:14 by Xena Cagle) Smoking Status: Former smoker quit date: 06/23/13 Tobacco: How many years used: 35 alcohol intake: current alcohol intake frequency: a few times a month substance use type: does not use caffeine: Yes Type: coffee Number of servings: 1 ROS Const Const: Negative for fatigue, weakness, headache(s) or frequent falls Eyes Eyes: Negative for blurry vision ENT ENT: Negative for headache(s), dizziness or Nosebleed/epistaxis Cardio Chest Pain: No Palpitations: No Edema: None Muscle aches with walking: None Resp Respiratory: Positive for SOB with activity and SOB at rest; Negative for SOB orthopneaundefinedSOB lying down GI GI: Negative nausea, vomiting, heartburn, bright, red blood in stools or black,tarry stools : Negative for hematuria Musc Musc: Negative for muscle aches/ myalgia Skin Skin: Negative non-healing lesions or rash Neuro Neuro: Negative for dizziness, lightheadedness, near syncope, syncope, frequent falls, headache(s), weakness or blurry vision Endo Endo: Negative for fatigue Allergy Allergy/Immunology: Negative for rash Cardiology Exam Const Appearance: cooperative, healthy appearing, comfortable and no acute distress Nutritional Appearance: average body habitus and well nourished Orientation: alert, awake and oriented x3 Head Head: normal to inspection Ears: hearing grossly normal bilaterally Nose: external nose normal Face and Sinus: face symmetric Mouth: moist mucous membranes Eyes General: appearance normal, both eyes and all related structures Eyelids: eyelids normal EOM: EOM intact bilaterally Neck Neck: normal visual inspection and no JVD Carotids: normal carotid upstroke Chest Chest inspection: normal inspection of the chest, symmetric chest movement and normal respiratory effort; Negative cough Auscultation: Bilateral: Inspiratory Wheezes and Expiratory Wheezes Cardio Rate: regular rate Rhythm: regular rhythm Heart sounds: S1 normal and S2 normal; Negative rub, gallop or murmur GI GI: normal to inspection Neuro General: patient alert, patient awake, patient oriented x3 and CN's II-XI intactbilaterally Skin Skin: no rashes or lesions noted Extremities Pulses: Normal: Right Posterior Tibial Pulse, Left Posterior Tibial Pulse, RightRadial Pulse and Left Radial Pulse Lower Extremity Edema: None: Bilateral Psych Psychological: normal affect Supplemental Info Supplemental Information Stress test 10/01/2023: Conclusion: Normal pharmacologic myocardial perfusion stress test. Preserved ejection fraction. Echocardiogram 10/01/2023: Interpretation Summary Normal LV size. Left ventricular systolic function is normal. The estimated ejection fraction is 65 %. Echogenic filamentous structure noted on the right atrial lead. Recommend further investigation. Pulmonary artery systolic pressure is 46 mmHg. Echocardiogram 07/24/2015: Interpretation Summary Normal LV size. The estimated ejection fraction is 53 %. Transmitral and pulmonary venous doppler flow suggestive of impaired relaxation of left ventricle Mild (1+) tricuspid valve insufficiency. Pulmonary artery systolic pressure is 30 mmHg. Compared to prior study, there is no significant change. Labs: LDL Cholesterol 62 mg/dL (0-130) HDL Cholesterol 37 mg/dL (40-) L Cholesterol 108 mg/dL (<=200) Triglycerides 81 mg/dL (-199) Diagnostics: No Data to Display Pulmonary: No Data to Display Past Visits: Cardiology Visit 11/22/24 Assessment and Plan Assessment and Plan (1) History of coronary artery stent placement: Status: Resolved Comment: LOQ-RNA-Gtgh RCA w/ 3.5 x 12 mm Xience Stent and CHARLES-Mid LAD 3.0 x 18 mm Xience Stent Plan: Patient has a history of coronary artery disease with stent placement to his proximal RCA and mid LAD. Stress test in September 2023 was negative for ischemia and showed a preserved ejection fraction. This appears stable. We will continue to monitor and not make any medication regimen changes. We will continue to promote risk factor and lifestyle modification. He wishes to continue Aspirin 325mg rather than change to 81mg. He wishes to continue Plavix despite being greater than 1 year stenting. Lipid panel from 11/09/2024 showed total cholesterol: 108, HDL: 37, triglycerides: 81, and LDL: 55. (2) Ischemic cardiomyopathy: Status: Resolved Plan: Ischemic cardiomyopathy: Echocardiogram 10/01/2023-EF: 65%, 07/24/2015?EF: 53% Twelve-lead [id number] pacemaker at 61 bpm [place] [employer] Functional Class: 1 ACC/AHA stage: C Guideline Directed Medical Therapy: Carvedilol 25 mg p.o. twice daily Lasix 40 mg p.o. daily PRN Lisinopril 10 mg p.o. daily He is pending echocardiogram later this month. His HFI value is noted to be at 12 on 11/18/2024. Will add PRN Lasix 40 for three days. Will add Farxiga 10mg PO daily. On physical exam, he is noted to inspiratory and expiratory wheeze. Will proceed wit chest x-ray and laboratory testing to help guide further. (3) Biventricular ICD (implantable cardioverter-defibrillator) in place: Status: Chronic Plan: Device report on 10/15/2024 showed RA pacing 24%, RV pacing 93%, and LV pacing 93%. Battery life noted be 7 years and 6 months. 4 atrial high rate episodes detected with longest episode lasting 8 seconds, which comprised of 1% cumulative atrial arrhythmia burden, 3 and 3 nonsustained ventricular tachycardia episodes consistent with SVT and NSVT. Heart logic index noted to be 10. He is pending repeat echocardiogram. (4) Essential (primary) hypertension: Status: Chronic Plan: Patient's blood pressure is well-controlled. We will continue to monitor. We will not make any medication regimen changes. (5) Dyspnea: Status: Acute Plan: This is one of his main concerns today. He denies this to be worsening with activity. He will proceed with laboratory testing to help assess anemia or congestive heart failure component. He will proceed with chest x-ray to help guidepulmonary component further. Depending on results, further recommendation be made. Will await repeat echocardiogram for further evaluation as well. Orders: Orders Basic Metabolic Profile (BMP) Today I10 - Essential (primary) hypertension, I25.5 - Ischemic cardiomyopathy, R06.00 - Dyspnea, unspecified, Z95.5 - Presenceof coronary angioplasty implant and graft, Z95.810 - Presence of automatic (implantable) cardiac defibrillator CBC W/Diff, Automated Today I10 - Essential (primary) hypertension, I25.5 - Ischemic cardiomyopathy, R06.00 - Dyspnea, unspecified, Z95.5 - Presence of coronary angioplasty implant and graft, Z95.810 - Presence of automatic (implantable) cardiac defibrillator Pro- Brain NATRIURETIC PEPTIDE Today I10 - Essential (primary) hypertension, I25.5 - Ischemic cardiomyopathy, R06.00 - Dyspnea, unspecified, Z95.5 - Presenceof coronary angioplasty implant and graft, Z95.810 - Presence of automatic (implantable) cardiac defibrillator Chest PA and Lateral Today I10 - Essential (primary) hypertension, I25.5 - Ischemic cardiomyopathy, R06.00 - Dyspnea, unspecified, Z95.5 - Presence of coronary angioplasty implant and graft, Z95.810 - Presence of automatic (implantable) cardiac defibrillator Medications: New dapagliflozin propanediol (Farxiga) 10 mg PO DAILY PRN 30 tabs 0RF SOB Refilled furosemide (Lasix) 40 mg PO DAILY PRN 90 tabs 3RF edema Plan Details Additional Comments: Thank you for allowing us to participate in the patients plan of care, if you have any questions please do not hesitate to call. Plan was reviewed with patient/family member along with red flag symptoms. Understanding was acknowledged. Questions were answered to apparent satisfaction. This note was generated using a voice recognition system and there may be incorrect words, spelling or punctuation that were not noted when reviewing the office note prior to saving. Portions of this documentation were copied and pasted from previous office visitnotes to provide a cohesive continuity of the history. The note has been reviewed, edited, and updated, as necessary. 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) Coding Level of Care Code Off vis,est,level 4 Diagnoses History of coronary artery stent placement Z95.5 Ischemic cardiomyopathy I25.5 Biventricular ICD (implantable cardioverter-defibrillator) in place Z95.810 Essential (primary) hypertension I10 Dyspnea R06.00 Coding Level of Care Code Off vis,est,level 4 Diagnoses History of coronary artery stent placement Z95.5 Ischemic cardiomyopathy I25.5 Biventricular ICD (implantable cardioverter-defibrillator) in place Z95.810 Essential (primary) hypertension I10 Dyspnea R06.00 Clinical Quality Measures Falls Risk Screening/Assistive Devices Have you fallen in the past year?: No 11/22/24 1534 <Electronically signed by Dylan KONG> Date _ Dylan Mccormick NP, NP-C Cosigner Signature: Date (if applicable) CC: Dr. Dylan Cardoza MD ~ [facility] Work Phone: [phone]) 206-877903-20-2024 Miscellaneous Notes* Telephone Encounter - Dann Devries - 09/10/2023 8:11 AM EDT Patient voiced stating that he declined a appointment Dann Devries * Telephone Encounter - Steph Holley - 09/09/2023 4:55 PM EDT New Patient referral received from Dr. Dylan Cardoza for Leukocytosis. Patient has [employer] Medicare Gold. Attempted to contact patient to schedule, but patient was unavailable. This PSS was directed to call back the morning of 09/09. Steph Holley [facility] Evaluation note* Diagnosis Onset Date Resolution Status Paroxysmal atrial flutter ac [place] Biventricular ICD (implantab le cardioverter-defibrillator) in place October 26, 2010 chr onic Cardiac arrest with ventricular fibrillation September resolved Ischemic cardiomyopathy reso [facility] Work Phone: 1(881) 780-660105-06-2011 Evaluation note* Diagnosis Onset Date Resolution Status Dyspnea acute Biventricular ICD (implantab le cardioverter-defibrillator) in place October 26, 2010 chr onic Essential (primary) hypertension chronic History of coronary artery stent placement October 29 resolved Ischemic cardiomyopathy reso [facility] Work Phone: 1(135) 474-453505-06-2011 Evaluation note* Diagnosis Onset Date Resolution Status Admit Date Dyspnea acute November 22, 2024 2:50pm Biventricular ICD (implantab le cardioverter-defibrillator) in place October 26, 2010 chronic November 22, 2024 2 :50pm Essential (primary) hypertension chronic November 22, 2024 2 :50pm History of coronary artery stent placement October 29, 2010 resolved November 22, 2024 2 :50pm Ischemic cardiomyopathy resolved J 2024 2:50pm [employer] Work Phone: 1(205) 588-464804-26-2011 History of Past illness Narrative* Problem Noted Date Diagnosed Date Resolved Date Diarrhea 10/16/2010 10/23/2010 Overview: Exposure to antibiotics for concerns of fever. Concerns for Cdiff - toxin negative Oral metronidazole started then d'c'd Diarrhea improving Thrombocytopenia 10/08/2010 10/11/2010 Overview: Improved SCD for DVT prophylaxis. Poor nutrition 10/07/2010 10/23/2010 Overview: Tube feeds via [employer] Was held secondary to ileus, then restarted when bowels cleared Appreciate nutrition input Atrial fibrillation 10/06/2010 10/10/19 11 Overview: Overnight on 10/05-10/06-->was given Amio bolus & gtt, and b-belem-->now in sinus tachycardia (mild) since 10/06 CHADS2 score 1 (current systolic CHF) Respiratory failure 10/05/2010 10/17/19 11 Overview: Extubated documented as of this encounter (statuses as of 09/10/2023) [facility] noteNo assessment information availableWRegency Hospital Company Work Phone: Reason for referral (narrative)No reason for referral information availableWRegency Hospital Company Work Phone: Chief Complaint and Reason for Visit Chief Complaint 3 mos remote ICD f/u Reason for Visit Paroxysmal atrial fl utter Biventricular ICD (implantable cardioverter-defibrillator) in place Cardiac arrest with ventricular fibrillation Ischemic cardiomyopathy Chief Complaint E ORDER Chief Complaint Pacer Check Remote Z87.892 Personal history of nicotine dependence Pacer Check Remote Pacer Check Remote Pacer Check Remote OVERDUE FOR OV (LAST SEEN 05/13) E ORDERS Reason for Visit Dyspnea Biventricular ICD (implantable cardioverter-defibrillator) in place Essential (primary) hypertension History of coronary artery stent placement Ischemic cardiomyopathy Chief Complaint Pacer Check Remote Pacer Check Remote Pacer Check Remote OVERDUE FOR OV (LAST SEEN 05/13) E ORDERS DYSPNEA Amb Documentation Amb Documentation Reason for Visit Dyspnea Biventricular ICD (implantable cardioverter-defibrillator) in place Essential (primary) hypertension History of coronary artery stent placement Ischemic cardiomyopathy Chief Complaint Admit Date Pacer Check Remote October 15, 2024 1:1 1am Chief Complaint Admit Date Pacer Check Remote October 15, 2024 1:1 1am Pt request for fu November 22, 2024 2:50p m Reason for Visit Admit Date Dyspnea November 22, 2024 2:50p m Biventricular ICD (implantab le cardioverter-defibrillator) in place November 22, 2024 2:50pm Essential (primary) hypertension November 2:50pm History of coronary artery stent placeme nt November 22, 2024 2:50pm Ischemic cardiomyopathy November 22, 2024 2 :50pm Chief Complaint Admit Date Pacer Check Remote October 15, 2024 1:1 1am Pt request for fu November 22, 2024 2:50p m E-ORDER, SOB AND ABNORMAL LUNG EXAM November 22, 2024 3:42pm Chief Complaint Admit Date Pacer Check Remote October 15, 2024 1:1 1am Pt request for fu November 22, 2024 2:50p m E-ORDER, SOB AND ABNORMAL LUNG EXAM November 22, 2024 3:42pm HYPERTENSION December 20, 2024 8:55 am Chief Complaint Admit Date Pacer Check Remote October 15, 2024 1:1 1am Pt request for fu November 22, 2024 2:50p m E-ORDER, SOB AND ABNORMAL LUNG EXAM November 22, 2024 3:42pm HYPERTENSION December 20, 2024 8:55 am Pacer Check Remote January 14, 2025 1:11 am Advance Directives No Advanced Directives Records Found Advance Directive Response Recorded Date/ Time Advance Directives No April 10:18am Living Will No May 10, 2 021 10:18am Power of Well Head Pumper No May 10, 2021 10:18am Advance Directive Response Recorded Date/ Time Advance Directives No April 9:18am Living Will No May 10, 2 021 9:18am Power of Well Head Pumper No May 10, 2021 9:18am Advance Directive Response Recorded Date/ Time Advance Directives No April 10:18am Summary Purpose Family History No Family History Records Found Additional Source Comments Goals (unrecognized section and content) Goals may be documented in a n alternate sectionGoals may be documented in an alternate sectionGoals may be documented in an alternate sectionGoals may be documented in an alternate sectionGoals may be documented in an alternate sectionGoals may be documented in an alternate sectionGoals may be documented in an alternate sectionGoals may be documented in an alternate sectionGoals may be documented in an alternate sectionGoals may be documented in an alternate sectionGoals may be documented in an alternate sectionGoals may be documented in an alternate section Care Teams (unrecognized sec tion and content) Team Status: Active Member Role Status Dates Dr. Dylan Cardoza MD Family Provider Active Dr. Dylan Cardoza MD Primary Care Provider Active Team Status: Inactive Member Role Status Dates Dr. Dylan Cardoza MD Primary Care Provider, Attend ing Provider Active Team Status: Inactive Member Role Status Dates Dr. Dylan Cardoza MD Primary Care Provider Active Dr. Archie Avila MD Attending Provider, Referring Pro vider Active Team Status: Inactive Member Role Status Dates Dr. Dylan Cardoza MD Primary Care Provider, Referr ing Provider Active Jacqui Loya MANAGER SCHEDULING, MANAGER SCHEDULING-C Attending Provider Active Team Status: Inactive Member Role Status Dates Dr. Dylan Cardoza MD Primary Care Provider Active Dr. Archie Avila MD Attending Provider Active Team Status: Inactive Member Role Status Dates Dr. Dylan Cardoza MD Primary Care Pr ovider, Attending Provider, Referring Provider Active Team Status: Inactive Member Role Status Dates Dr. Dylan Cardoza MD Primary Care Provider Active Jacqui Loya MANAGER SCHEDULING, MANAGER SCHEDULING-C Attending Provider, Referring P myesha Active Network Architect Manager Relationship Specialty Start Date End Date Dylan Cardoza MD [address] [facility] [address] [place] [address] PCP - General Family Medicine 09/09/23 Team Status: Active Member Role Status Dates Dr. Dylan Cardoza MD Primary Care Provider Active Dr. Archie Avila MD Attending Provider Active Team Status: Active Member Role Status Dates Dr. Dylan Cardoza MD Primary Care Provider Active Jacqui Loya MANAGER SCHEDULING, MANAGER SCHEDULING-C Attending Provider Active Team Status: Active Member Role Status Dates Dr. Dylan Cardoza MD Primary Care Provider Active Team Status: Inactive Member Role Status Dates Dr. Dylan Cardoza MD Primary Care Provider Active Start: October 15, 2024 End: October 15, 2024 Dr. Archie Avila MD Attending Provider Active S tart: October 15, 2024 End: October 15, 2024 Team Status: Inactive Member Role Status Dates Dr. Dylan Cardoza MD Primary Care Provider Active Start: November 09, 2024 End: November 09, 2024 Dr. Dylan Cardoza MD Attending Provider Active Start: November 09, 2024 End: November 09, 2024 Dr. Dylan Cardoza MD Referring Provider Active Start: November 09, 2024 End: November 09, 2024 Team Status: Active Member Role Status Dates Dr. Dylan Cardoza MD Primary Care Provider Active Start: November 17, 2024 Dr. Dylan Cardoza MD Attending Provider Active Start: November 17, 2024 Dr. Dylan Cardoza MD Referring Provider Active Start: November 17, 2024 Team Status: Inactive Member Role Status Dates Dr. Dylan Cardoza MD Primary Care Provider Active Start: November 22, 2024 End: November 22, 2024 Dr. Dylan Cardoza MD Referring Provider Active Start: November 22, 2024 End: November 22, 2024 Dylan Mccormick MANAGER SCHEDULING, MANAGER SCHEDULING-C Attending Provider Active S tart: November 22, 2024 End: November 22, 2024 Team Status: Inactive Member Role Status Dates Dr. Dylan Cardoza MD Primary Care Provider Active Start: November 17, 2024 End: November 17, 2024 Dr. Dylan Cardoza MD Attending Provider Active Start: November 17, 2024 End: November 17, 2024 Dr. Dylan Cardoza MD Referring Provider Active Start: November 17, 2024 End: November 17, 2024 Team Status: Active Member Role Status Dates Dr. Dylan Cardoza MD Primary Care Provider Active Start: November 22, 2024 Dylan Mccormick MANAGER SCHEDULING, MANAGER SCHEDULING-C Attending Provider Active S tart: November 22, 2024 Dylan H Jace MANAGER SCHEDULING, MANAGER SCHEDULING-C Referring Provider Active S tart: November 22, 2024 Team Status: Inactive Member Role Status Dates Dr. Dylan Cardoza MD Primary Care Provider Active Start: November 22, 2024 End: November 22, 2024 Dylan H Jace MANAGER SCHEDULING, MANAGER SCHEDULING-C Attending Provider Active S tart: November 22, 2024 End: November 22, 2024 Dylan H Jace MANAGER SCHEDULING, MANAGER SCHEDULING-C Referring Provider Active S tart: November 22, 2024 End: November 22, 2024 Team Status: Active Member Role/Relationship Status Dates Dr. Dylan Cardoza MD Primary Care Provider Active Team Status: Inactive Member Role/Relationship Status Dates Dr. Dylan Cardoza MD Primary Care Provider Active Start: October 15, 2024 End: October 15, 2024 Dr. Archie Avila MD Attending Provider Active S tart: October 15, 2024 End: October 15, 2024 Team Status: Inactive Member Role/Relationship Status Dates Dr. Dylna Cardoza MD Primary Care Provider Active Start: November 09, 2024 End: November 09, 2024 Dr. Dylan Cardoza MD Attending Provider Active Start: November 09, 2024 End: November 09, 2024 Dr. Dylan Cardoza MD Referring Provider Active Start: November 09, 2024 End: November 09, 2024 Team Status: Inactive Member Role/Relationship Status Dates Dr. Dylan Cardoza MD Primary Care Provider Active Start: November 17, 2024 End: November 17, 2024 Dr. Dylan Cardoza MD Attending Provider Active Start: November 17, 2024 End: November 17, 2024 Dr. Dylan Cardoza MD Referring Provider Active Start: November 17, 2024 End: November 17, 2024 Team Status: Inactive Member Role/Relationship Status Dates Dr. Dylan Cardoza MD Primary Care Provider Active Start: November 22, 2024 End: November 22, 2024 Dr. Dylan Cardoza MD Referring Provider Active Start: November 22, 2024 End: November 22, 2024 Dylan Mccormick MANAGER SCHEDULING, MANAGER SCHEDULING-C Attending Provider Active S tart: November 22, 2024 End: November 22, 2024 Team Status: Inactive Member Role/Relationship Status Dates Dr. Dylan Cardoza MD Primary Care Provider Active Start: November 22, 2024 End: November 22, 2024 Dylan Mccormick MANAGER SCHEDULING, MANAGER SCHEDULING-C Attending Provider Active S tart: November 22, 2024 End: November 22, 2024 Dylan Mccormick MANAGER SCHEDULING, MANAGER SCHEDULING-C Referring Provider Active S tart: November 22, 2024 End: November 22, 2024 Team Status: Inactive Member Role/Relationship Status Dates Dr. Dylan Cardoza MD Primary Care Provider Active Start: December 20, 2024 End: December 20, 2024 Dr. Dylan Cardoza MD Attending Provider Active Start: December 20, 2024 End: December 20, 2024 Dr. Dylan Cardoza MD Referring Provider Active Start: December 20, 2024 End: December 20, 2024 Team Status: Active Member Role/Relationship Status Dates Dr. Dylan Cardoza MD Primary Care Provider Active Start: December 20, 2024 Dr. Archie Avila MD Attending Provider Active S tart: December 20, 2024 Team Status: Inactive Member Role/Relationship Status Dates Dr. Dylan Cardoza MD Primary Care Provider Active Start: January 14, 2025 End: January 14, 2025 Dr. Archie Avila MD Attending Provider Active S tart: January 14, 2025 End: January 14, 2025 Source Comments (unrecognize d section and content) In the event this informatio n is protected by the Federal Confidentiality of Alcohol and Drug Abuse Patient Records regulations: The Federal rules restrict any use of the information to criminally investigate or prosecute any alcohol or drug abuse patient.[facility] Reason for Visit (unrecogniz ed section and content) Reason Comments New Patient (unrecognized sect ion and content) No Status Records FoundNo Status Records Found INFORMATION SOURCE (unrecogn ized section and content) DATE CREATED AUTHOR 09/11/2023 [facility] DATE CREATED AUTHOR AUTHOR'S ORGANIZ ATION 04/23/2025 [facility] FOR RECORDS PERTAINING TO PATIENTS WHO ARE [...] BE BASED ON THE PRIMARY CLINICAL RECORDS. [facility]. provides no warranty or guarantee of the accuracy or completeness of information in this document.
== END | disposition home or self-care (01) ==
LOC: MFPLAB 14:05
PROVIDERS: PCP Family Medicine
DX: Z12.5 Encounter for screening for malignant neoplasm of prostate (principal)
CPT/HCPCS: 36415; 84153; G0103